=== PATIENT | female | born 1955 | race Hispanic/Latino ===

== ENCOUNTER 2018-07-24 20:39 | Observation (INO) | payer MEDICARE, OTHER ==
[2018-07-24] MEDS ORDERED: NA CHLORIDE 0.9% 1,000 ML ONE (21:05)
[2018-07-24] MEDS ORDERED: ADENOSINE 6 MG/ 2ML VIAL IV ONE (21:05)
[2018-07-24 21:21] LABS: Protime INR 0.95
[2018-07-24 21:33] LABS: ALT/SGPT 23 U/L (12-78); AST/SGOT 23 U/L (15-37); Albumin 3.9 g/dL (3.4-5.0); Alkaline Phosphatase 106 U/L (45-117); BUN Blood Urea Nitrogen 26 mg/dL (7-18); Bicarbonate 25 mmol/L (21-32); Bilirubin Direct 0.1 mg/dL (0-0.2); Bilirubin Total 0.4 mg/dL (0.2-1.0); Glucose Level 134 mg/dL (74-106); Magnesium 1.9 mg/dL (1.8-2.4); NT PRO-BNP 31 pg/mL (<125); Potassium 3.9 mmol/L (3.5-5.1); Protein, Total 8.2 g/dL (6.4-8.2); Sodium Level 138 mmol/L (136-145); Troponin (Emerg Dept Use Only) < 0.02 ng/mL (0.0-0.045)
[2018-07-24 21:38] LABS: Absolute Lymphocytes (CBC) 2.9 K/uL (0.7-4.9); Absolute Monocytes 0.6 K/uL (0.1-1.3); Absolute Neutrophil 5.6 K/uL (1.8-8.0); Basophils % 0.3 % (0-1.3); Eosinophils % 2.8 % (0-4.4); Hematocrit 33.9 % (36.0-45.0); Lymphocytes % 30.6 % (15.3-44.8); MPV 9.4 fL (7.6-11.3); Monocytes % 6.8 % (3.3-12.3); RBC Red Blood Cell Count 4.56 M/uL (3.86-4.86)
[2018-07-24] MEDS ORDERED: MORPHINE 4 MG/ML SYR IV PRN (22:22)
[2018-07-24] MEDS ORDERED: ACETAMINOPHEN 500 MG TAB PO PRN (22:22)
[2018-07-24] MEDS ORDERED: ALPRAZOLAM 0.25 MG TABLET PO PRN (22:22)
--- NOTE | 2018-07-24 22:27 | ER ---
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 she said it felt like a burning feeling. this started about 30 min before we got here.". 20:40 Transition of care: patient was not received from another setting of care. Onset of jd3 symptoms was July 24, 2018. Risk Assessment: Do you want to hurt yourself or someone else? Patient reports no desire to harm self or others. Initial Sepsis Screen: Does the patient meet any 2 criteria? No. Patient's initial sepsis screen is negative. Does the patient have a suspected source of infection? No. Patient's initial sepsis screen is negative. Care prior to arrival: None. 20:40 Method Of Arrival: Wheelchair jd3 20:40 Acuity: CHAD 1 jd3 Historical: - Allergies: 20:40 No Known Allergies; jd3 - Home Meds: 20:40 atorvastatin 20 mg oral tab [Active]; lisinopril-hydrochlorothiazide 20-12.5 mg oral jd3 tab [Active]; - PMHx: 20:40 gastric ulcers; jd3 - PSHx: 20:40 Hernia repair; jd3 - Immunization history:: Adult Immunizations up to date. - Social history:: Smoking status: Patient/guardian denies using tobacco. - Ebola Screening: : Patient negative for fever greater than or equal to 101.5 degrees Fahrenheit, and additional compatible Ebola Virus Disease symptoms. Screenin:36 Abuse screen: Denies threats or abuse. Nutritional screening: No deficits noted. jd3 Tuberculosis screening: No symptoms or risk factors identified. Fall Risk IV access (20 points). Ambulatory Aid- None/Bed Rest/Nurse Assist (0 pts). Gait- Weak (10 pts.). Mental Status- Oriented to own ability (0 pts). Total Taveras Fall Scale indicates Low Risk Score (25-44 pts). Fall prevention measures have been instituted. Side Rails Up X 2 Placed close to Nursing Station Frequent Obs/Assesments occuring Family Present and informed to notify staff if they need to leave bedside. Assessment: 20:40 General: Appears distressed, uncomfortable, Behavior is cooperative. cc3 20:40 Pain: Complains of pain in chest. Neuro: Level of Consciousness is awake, alert, obeys cc3 commands, Oriented to person, place, time, situation, Appropriate for age. Cardiovascular: Reports chest pain, Patient's skin is warm and dry. Rhythm is SVT. Respiratory: Airway is patent Respiratory effort is even, unlabored, Respiratory pattern is regular, symmetrical, Breath sounds are clear bilaterally. GI: Abdomen is round non-distended. : No signs and/or symptoms were reported regarding the genitourinary system. EENT: No signs and/or symptoms were reported regarding the EENT system. Derm: No signs and/or symptoms reported regarding the dermatologic system. Musculoskeletal: Circulation, motion, and sensation intact. Range of motion: intact in all extremities. 21:30 Reassessment: Patient appears in no apparent distress at this time. Patient and/or cc3 family updated on plan of care and expected duration. Pain level reassessed. Patient is alert, oriented x 3, equal unlabored respirations, skin warm/dry/pink. 22:15 Reassessment: Patient appears in no apparent distress at this time. Patient and/or cc3 family updated on plan of care and expected duration. Pain level reassessed. Patient is alert, oriented x 3, equal unlabored respirations, skin warm/dry/pink. 23:04 Reassessment: Patient appears in no apparent distress at this time. Patient and/or jd3 family updated on plan of care and expected duration. Pain level reassessed. Patient is alert, oriented x 3, equal unlabored respirations, skin warm/dry/pink. Patient states feeling better. 07/25 00:00 Reassessment: Patient appears in no apparent distress at this time. Patient and/or cc3 family updated on plan of care and expected duration. Pain level reassessed. Patient is alert, oriented x 3, equal unlabored respirations, skin warm/dry/pink. Patient left ER for admission vitally stable by stretcher escorted by field technical specialiststephen Estrada and the patient's family. Vital Signs: 07/24 20:42 BP 125 / 39; Pulse 194; Resp 25 S; Temp 98(O); Pulse Ox 100% on R/A; Weight 96.16 kg; jd3 Height 5 ft. 4 in. (162.56 cm) (R); Pain 10/10; 20:53 BP 123 / 87; Pulse 190; Resp 24 S; Pulse Ox 100% on Non-rebreather mask; jd3 20:57 BP 140 / 69; Pulse 92; Resp 21 S; Pulse Ox 100% on Non-rebreather mask; jd3 21:32 BP 112 / 64; Pulse 89; Resp 15 S; Pulse Ox 100% on R/A; jd3 21:39 BP 109 / 59; Pulse 116; Resp 14; Pulse Ox 99% on R/A; mt 22:00 BP 101 / 71; Pulse 92; Resp 18 S; Pulse Ox 100% on R/A; cc3 22:30 BP 103 / 50; Pulse 119; Resp 18 S; Pulse Ox 100% on R/A; cc3 23:04 BP 103 / 50; Pulse 89; Resp 19 S; Pulse Ox 100% on R/A; jd3 23:30 BP 107 / 53; Pulse 82; Resp 22 S; Pulse Ox 99% on R/A; cc3 20:42 Body Mass Index 36.39 (96.16 kg, 162.56 cm) jd3 ED Course: 20:43 EKG completed in triage. Results shown to MD. jd3 20:43 Arm band placed on. jd3 20:52 Patient arrived in ED. aa1 20:53 Inserted saline lock: 20 gauge in right antecubital area, using aseptic technique. jd3 Blood collected. 21:00 Inserted saline lock: 20 gauge in left antecubital area, using aseptic technique. Blood jd3 collected. 21:01 Brittni Burgos is Primary Nurse. cc3 21:13 Brandon Luna MD is Attending Physician. gs 21:27 Triage completed. jd3 21:37 Patient has correct armband on for positive identification. Placed in gown. Bed in low jd3 position. Call light in reach. Side rails up X2. Adult w/ patient. 21:45 X-ray completed. Portable x-ray completed in exam room. Patient tolerated procedure ml well. 21:46 XRAY Chest (1 view) In Process Unspecified. EDMS 22:26 Pavithra Mae MD is Hospitalizing Provider. gs 23:37 No provider procedures requiring assistance completed. Patient admitted, IV remains in jd3 place. Administered Medications: 20:55 Drug: Adenocard 6 mg Route: IVP; Site: right antecubital; jd3 21:00 Follow up: Response: Marked relief of symptoms; Cardiac rhythm changed jd3 20:55 Drug: NS 0.9% 1000 ml Route: IV; Rate: 1 bolus; Site: right antecubital; jd3 23:08 Follow up: Response: No adverse reaction; IV Status: Completed infusion jd3 Outcome: : Decision to Hospitalize by Provider. gs 23:39 Admitted to Med/surg accompanied by tech, via stretcher, room 212, with chart, Report jd3 called to Rocio MAGANA 23:39 Condition: stable 23:39 Instructed on the need for admit, Demonstrated understanding of instructions. 07/25 00:02 Patient left the ED. cc3 Signatures: Dispatcher [employer] EDNC Isha Velasco RN RN aa1 Frida Zavaleta Moriah mt Starr, Gregory, MD MD gs Davies, Jonathon, RN RN jd3 Brittni Burgos cc3 Corrections: (The following items were deleted from the chart) 07/24 22:15 22:13 BP 101 / 71; Pulse 92bpm; Resp 18bpm; Spontaneous; Pulse Ox 100% RA; cc3 cc3
--- NOTE | 2018-07-24 22:27 | EDPHYS ---
Physician Documentation [facility] Name: Felicia James Age: 63 yrs Sex: Female : 1955 Arrival Date: 07/24/2018 Time: 20:52 Bed 2 Private MD: ED Physician Brandon Luna HPI: 07/25 03:03 This 63 yrs old Female presents to ER via Wheelchair with complaints of gs PALPITATIONS. 03:03 The patient presents with a history of heart racing. Context: The symptoms occur at gs rest. Onset: The symptoms/episode began/occurred acutely, just prior to arrival. Duration: The patient or guardian reports a single episode, that is still ongoing. Modifying factors: The symptoms are aggravated by nothing. The symptoms are alleviated by nothing. Associated signs and symptoms: Pertinent positives: lightheadedness, SOB. Severity of symptoms: At their worst the symptoms were incapacitating in the emergency department the symptoms are unchanged. The patient has not experienced similar symptoms in the past. The patient has not recently seen a physician. Historical: - Allergies: 07/24 20:40 No Known Allergies; jd3 - Home Meds: 20:40 atorvastatin 20 mg oral tab [Active]; lisinopril-hydrochlorothiazide 20-12.5 mg oral jd3 tab [Active]; - PMHx: 20:40 gastric ulcers; jd3 - PSHx: 20:40 Hernia repair; jd3 - Immunization history:: Adult Immunizations up to date. - Social history:: Smoking status: Patient/guardian denies using tobacco. - Ebola Screening: : Patient negative for fever greater than or equal to 101.5 degrees Fahrenheit, and additional compatible Ebola Virus Disease symptoms. ROS: 07/25 03:03 All other systems are negative. gs Exam: 03:03 Head/Face: Normocephalic, atraumatic. Eyes: Pupils equal round and reactive to light, gs extra-ocular motions intact. Lids and lashes normal. Conjunctiva and sclera are non-icteric and not injected. Cornea within normal limits. Periorbital areas with no swelling, redness, or edema. ENT: Nares patent. No nasal discharge, no septal abnormalities noted. Tympanic membranes are normal and external auditory canals are clear. Oropharynx with no redness, swelling, or masses, exudates, or evidence of obstruction, uvula midline. Mucous membranes moist. Neck: Trachea midline, no thyromegaly or masses palpated, and no cervical lymphadenopathy. Supple, full range of motion without nuchal rigidity, or vertebral point tenderness. No Meningismus. Chest/axilla: Normal chest wall appearance and motion. Nontender with no deformity. No lesions are appreciated. Respiratory: Lungs have equal breath sounds bilaterally, clear to auscultation and percussion. No rales, rhonchi or wheezes noted. No increased work of breathing, no retractions or nasal flaring. Abdomen/GI: Soft, non-tender, with normal bowel sounds. No distension or tympany. No guarding or rebound. No evidence of tenderness throughout. Skin: Warm, dry with normal turgor. Normal color with no rashes, no lesions, and no evidence of cellulitis. MS/ Extremity: Pulses equal, no cyanosis. Neurovascular intact. Full, normal range of motion. Neuro: Awake and alert, GCS 15, oriented to person, place, time, and situation. Cranial nerves II-XII grossly intact. Motor strength 5/5 in all extremities. Sensory grossly intact. Cerebellar exam normal. Normal gait. 03:03 Constitutional: The patient appears alert, awake, in obvious distress, severely distressed. 03:03 ECG was reviewed by the Attending Physician. Vital Signs: 07/24 20:42 BP 125 / 39; Pulse 194; Resp 25 S; Temp 98(O); Pulse Ox 100% on R/A; Weight 96.16 kg; jd3 Height 5 ft. 4 in. (162.56 cm) (R); Pain 10/10; 20:53 BP 123 / 87; Pulse 190; Resp 24 S; Pulse Ox 100% on Non-rebreather mask; jd3 20:57 BP 140 / 69; Pulse 92; Resp 21 S; Pulse Ox 100% on Non-rebreather mask; jd3 21:32 BP 112 / 64; Pulse 89; Resp 15 S; Pulse Ox 100% on R/A; jd3 21:39 BP 109 / 59; Pulse 116; Resp 14; Pulse Ox 99% on R/A; mt 22:00 BP 101 / 71; Pulse 92; Resp 18 S; Pulse Ox 100% on R/A; cc3 22:30 BP 103 / 50; Pulse 119; Resp 18 S; Pulse Ox 100% on R/A; cc3 23:04 BP 103 / 50; Pulse 89; Resp 19 S; Pulse Ox 100% on R/A; jd3 23:30 BP 107 / 53; Pulse 82; Resp 22 S; Pulse Ox 99% on R/A; cc3 20:42 Body Mass Index 36.39 (96.16 kg, 162.56 cm) jd3 MDM: 21:14 Patient medically screened. 07/25 03:03 Differential diagnosis: arrythmia, dehydration, stress disorder, cad. Data reviewed: vital signs, nurses notes, lab test result(s), cardiac enzymes, troponin i, CBC, EKG, radiologic studies. Counseling: I had a detailed discussion with the patient and/or guardian regarding: the historical points, exam findings, and any diagnostic results supporting the discharge/admit diagnosis, lab results, radiology results, the need for further work-up and treatment in the hospital. Response to treatment: the patient's symptoms have markedly improved after treatment, and as a result, I will admit patient. 07/24 21:14 Order name: Basic Metabolic Panel; Complete Time: 22:19 07/24 21:14 Order name: CBC with Diff; Complete Time: 22:19 07/24 21:14 Order name: LFT's; Complete Time: 22:19 07/24 21:14 Order name: Magnesium; Complete Time: 22:19 07/24 21:14 Order name: NT PRO-BNP; Complete Time: 22:19 07/24 21:14 Order name: PT-INR; Complete Time: 22:19 07/24 21:14 Order name: Troponin (emerg Dept Use Only); Complete Time: 22:19 07/24 21:14 Order name: XRAY Chest (1 view) 07/24 22:25 Interpretation: No acute disease except: cardiomegaly mild . 07/24 22:26 Order name: Basic Metabolic Panel [facility] 07/24 22:26 Order name: Basic Metabolic Panel [facility] 07/24 22:26 Order name: CBC with Automated Diff [facility] 07/24 22:26 Order name: CBC with Automated Diff [facility] 07/24 22:26 Order name: Lipid Profile [facility] 07/24 22:26 Order name: Lipid Profile [facility] 07/24 21:14 Order name: EKG; Complete Time: 21:15 07/24 21:14 Order name: Cardiac monitoring; Complete Time: 21:18 07/24 21:14 Order name: EKG - Nurse/Tech; Complete Time: 21:18 07/24 21:14 Order name: IV Saline Lock; Complete Time: 21:18 07/24 21:14 Order name: Labs collected and sent; Complete Time: 21:18 07/24 21:14 Order name: O2 Per Protocol; Complete Time: 21:18 07/24 21:14 Order name: O2 Sat Monitoring; Complete Time: 21:18 07/24 22:26 Order name: CONS Physician Consult [facility] 07/24 22:26 Order name: Heart Healthy [facility] 07/24 22:26 Order name: Echo with Doppler [facility] 07/24 22:26 Order name: EKG Electrocardiogram [facility] 07/24 22:26 Order name: EKG Electrocardiogram [facility] EC: Rate is 163 beats/min. Rhythm is regular. QRS interval is normal. QT interval is gs normal. T waves are Normal. Clinical impression: SVT. Interpreted by me. Administered Medications: 07/24 20:55 Drug: Adenocard 6 mg Route: IVP; Site: right antecubital; jd3 21:00 Follow up: Response: Marked relief of symptoms; Cardiac rhythm changed jd3 20:55 Drug: NS 0.9% 1000 ml Route: IV; Rate: 1 bolus; Site: right antecubital; jd3 23:08 Follow up: Response: No adverse reaction; IV Status: Completed infusion jd3 Disposition: 07/24/18 22:27 Hospitalization ordered by Pavithra Mae for Observation. Preliminary diagnosis is Supraventricular tachycardia. - Bed requested for Telemetry/MedSurg (observation). - Status is Observation. cc3 - Condition is Stable. - Problem is new. - Symptoms are resolved. UTI on Admission? No Critical care time excluding procedures: 07/25 03:03 Critical care time: Bedside Care: 10 minutes, Consultation: 10 minutes, Guardian Hospital Intervention: 10 minutes. Total time: 30 minutes Signatures: Dispatcher [employer] [facility] Uzma Ulloa RN RN mw Starr, Gregory, MD MD gs Davies, Jonathon, RN RN jd3 Brittni Burgos cc3 Corrections: (The following items were deleted from the chart) 07/24 22:56 22:27 Hospitalization Ordered by Pavithra Mae MD for Observation. Preliminary mw diagnosis is Supraventricular tachycardia. Bed requested for Telemetry/MedSurg (observation). Status is Observation. Condition is Stable. Problem is new. Symptoms are resolved. UTI on Admission? No. 07/25 00:02 07/24 22:56 07/24/2018 22:27 Hospitalization Ordered by Pavithra Mae MD for cc3 Observation. Preliminary diagnosis is Supraventricular tachycardia. Bed requested for Telemetry/MedSurg (observation). Status is Observation. Condition is Stable. Problem is new. Symptoms are resolved. UTI on Admission? No. mw
[2018-07-25 00:11] VITALS: BMI 35.9
[2018-07-25] MEDS: METOPROLOL TAR 50 MG TAB PO SCH ×3 (00:37→21:06)
[2018-07-25 05:50] LABS: RBC Red Blood Cell Count 3.97 M/uL (3.86-4.86)
[2018-07-25 05:51] LABS: Absolute Lymphocytes (CBC) 1.7 K/uL (0.7-4.9); Absolute Monocytes 0.5 K/uL (0.1-1.3); Basophils % 0.6 % (0-1.3); Eosinophils % 3.1 % (0-4.4); Hematocrit 29.3 % (36.0-45.0); Lymphocytes % 26.9 % (15.3-44.8); Monocytes % 7.9 % (3.3-12.3)
--- NOTE | 2018-07-25 06:01 | EKG ---
Test Date: 2018-07-24 Test Time: 20:55:57 Special Education Aide: BLAKE MEASUREMENT RESULTS: Intervals: Rate: 111 UT: 126 QRSD: 66 QT: 308 QTc: 418 [place]: P: 93 UT: 126 QRS: 88 T: 46 INTERPRETIVE STATEMENTS: Sinus tachycardia Borderline ECG Compared to ECG 07/10/2015 05:42:46 Sinus rhythm no longer present Electronically Signed On 07-25-18 06:00:25 CDT by Reid Thomas
--- NOTE | 2018-07-25 06:01 | EKG ---
Test Date: 2018-07-24 Test Time: 20:43:38 Golf Course Keeper: MERI MEASUREMENT RESULTS: Intervals: Rate: 193 HI: QRSD: 82 QT: 234 QTc: 419 [place]: P: HI: QRS: 69 T: -2 INTERPRETIVE STATEMENTS: Supraventricular tachycardia Nonspecific ST abnormality Abnormal ECG Compared to ECG 07/10/2015 05:42:46 ST (T wave) deviation now present Sinus rhythm no longer present Electronically Signed On 07-25-18 06:00:48 CDT by Reid Thomas
[2018-07-25 06:17] LABS: Potassium 3.7 mmol/L (3.5-5.1)
--- NOTE | 2018-07-25 08:06 | RAD REPORT ---
EXAM DESCRIPTION: Patricia Single View07/24/2018 9:46 pm CLINICAL HISTORY: Chest pain COMPARISON: 2016 FINDINGS: An opacity is present on the left side of the heart. Right lung appears clear The heart is normal size IMPRESSION: Opacity behind the left side of the heart probably representing a hiatal hernia. PA and lateral chest series recommended for confirmation
[2018-07-25] MEDS ORDERED: REGADENOSON 0.4 MG/5 ML SYR IV ONE (08:48)
--- NOTE | 2018-07-25 09:44 | P.HP ---
Certification for Inpatient Patient admitted to: Observation With expected LOS: <2 Midnights Patient will require the following post-hospital care: None Practitioner: I am a practitioner with admitting privileges, knowledge of patient current condition, hospital course, and medical plan of care. Services: Services provided to patient in accordance with Admission requirements found in Title 42 Section 412.3 of the Code of Federal Regulations Patient History Date of Service: 07/24/18 Reason for admission: SVT History of Present Illness: Patient is a 63yo who was admitted to the hospital with SVT. Patient was given Adenosine and converted to a normal sinus rhythm. Patient will be admitted to the hospital for further workup. Patient drinks 1 cup of coffee daily. She has been taking her Lopressor 25 daily. Allergies ibuprofen Allergy (Verified 07/10/15 00:20) Rash No Known Allergies Allergy (Uncoded 07/10/15 00:35) Unknown Home Medications: Atorvastatin Calcium [Lipitor] 20 mg PO BEDTIME 07/25/18 Lisinopril/Hydrochlorothiazide [Zestoretic 20-12.5 mg Tablet] 1 each PO DAILY - Past Medical/Surgical History Has patient received pneumonia vaccine in the past: Yes Diabetic: No -: Resolved SVT -: Gastric ulcer -: hernia repair - Family History Father Family History: Reviewed- Non-Contributory - Social History Smoking Status: Never smoker Alcohol use: No CD- Drugs: No Caffeine use: Yes Place of Residence: Home Review of Systems 10-point ROS is otherwise unremarkable Physical Examination - Vital Signs Temperature: 98.6 F Blood Pressure: 118/53 Pulse: 76 Respirations: 18 Pulse Ox (%): 95 - Physical Exam General: Alert, In no apparent distress, Oriented x3 HEENT: Atraumatic, PERRLA, Mucous membr. moist/pink, EOMI, Sclerae nonicteric Neck: Supple, 2+ carotid pulse no bruit, No LAD, Without JVD or thyroid abnormality Respiratory: Clear to auscultation bilaterally, Normal air movement Cardiovascular: Regular rate/rhythm, Normal S1 S2, No murmurs Gastrointestinal: Normal bowel sounds, Soft and benign, Non-distended, No tenderness Musculoskeletal: No clubbing, No swelling, No tenderness Integumentary: No rashes Neurological: Normal gait, Normal speech, Normal strength at 5/5 x4 extr, Normal tone, Sensation intact, Cranial nerves 3-12 intact, Normal affect Lymphatics: No axilla or inguinal lymphadenopathy - Studies Laboratory Data (last 24 hrs) 07/24/18 21:00: PT 11.2, INR 0.95 07/24/18 21:00: WBC 9.5, Hgb 10.6 L, Hct 33.9 L, Plt Count 305 07/24/18 21:00: Sodium 138, Potassium 3.9, BUN 26 H, Creatinine 0.80, Glucose 134 H, Magnesium 1.9, Total Bilirubin 0.4, AST 23, ALT 23, Alkaline Phosphatase 106 Assessment & Plan - Problems (Diagnosis) (1) SVT (supraventricular tachycardia) Current Visit: Yes Status: Acute - Plan Plan: 1. Increase beta-inge therapy 2. IV hydration 3. Echocardiogram 4. EKG 5. GI/DVT prophylaxis Discharge Plan: Home Plan to discharge in: 48 Hours - Advance Directives Does patient have a Living Will: No Does patient have a Durable POA for Healthcare: No - Code Status/Comfort Care Code Status Assessed: Yes Code Status: Full Code Critical Care: No Time Spent Managing PTS Care (In Minutes): 45
--- NOTE | 2018-07-25 09:55 | CON ---
Attending Physician: Pavithra Mae M.D. Chief Complaint: Chest pain. History Of Present Illness: Mrs. James has noted spells where her heart beats fast and she gets ti ght and heavy in the chest, dizzy, head spinning, lightheaded, very out of breath. She has had sever al spells. The one that brought her to the hospital yesterday was mostly resolved when she came in. Her initial EKG showed sinus tachycardia. Later, she had an EKG that shows SVT. It looks like AV n ode re-entrant SVT, not atrial fibrillation. The patient has not had heart trouble before. She has hypertension, and takes lisinopril with hydrochlorothiazide. She has dyslipidemia and takes atorvast atin. No other medications. Denies diabetes, any history of heart trouble, stroke, myocardial infar ction, or other cardiac diagnoses. She is allergic to ibuprofen. Physical Examination: Vital Signs: 5 feet 3 inches, 202 pounds, obese. General: Alert, oriented, pleasant, not in distress. Lungs: Clear. Cardiac: Normal. Abdomen: Soft. Extremities: Normal. Distal pulses normal. Impression: My impression is the patient has paroxysmal supraventricular tachycardia causing chest p ain. We should do a nuclear pharmacologic stress test, echo, and give her beta blockers to take long-term. NAY/KAMARI Voice ID: [id number] Report ID: [id number]
[2018-07-25] MEDS: ASPIRIN EC 81 MG TAB PO SCH (10:01)
[2018-07-25] MEDS: ENOXAPARIN 40 MG/0.4 ML SQ SCH (10:03)
--- NOTE | 2018-07-25 10:51 | ECHO ---
HEIGHT: 5 ft 3 in WEIGHT: 202 lb 11.2 oz DATE OF STUDY: 07/25/[address]: Pavithra Mae MD 2-DIMENSIONAL: YES M.MODE: YES DOPPLER: YES COLOR FLOW: YES TDS: YES PORTABLE: NO DEFINITY: NO BUBBLE STUDY: NO DIAGNOSIS: SUPRAVENTRICULAR TACHYCARDIA CARDIAC HISTORY: CATHERIZATION: NO SURGERY: NO PROSTHETIC VALVE: NO PACEMAKER: NO MEASUREMENTS (cm) DIASTOLIC (NORMALS) SYSTOLIC (NORMALS) IVSd 1.1 (0.6-1.2) LA Diam 3.6 (1.9-4.0) LVEF 75% LVIDd 3.5 (3.5-5.7) LVIDs 2.0 (2.0-3.5) %FS 43% LVPWd 1.2 (0.6-1.2) Ao Diam 2.7 (2.0-3.7) 2 DIMENSIONAL ASSESSMENT: RIGHT ATRIUM: NORMAL LEFT ATRIUM: NORMAL RIGHT VENTRICLE: NORMAL LEFT VENTRICLE: NORMAL TRICUSPID VALVE: NORMAL MITRAL VALVE: NORMAL PULMONIC VALVE: NORMAL AORTIC VALVE: NORMAL PERICARDIAL EFFUSION: NONE AORTIC ROOT: NORMAL LEFT VENTRICULAR WALL MOTION: NORMAL DOPPLER/COLOR FLOW: MILD TRICUSPID REGURGITATION. NORMAL RIGHT VENTRICULAR SYSTOLIC PRESSURE. COMMENTS: NORMAL 2D ECHOCARDIOGRAM. MILD TRICUSPID REGURGITATION. TECHNICALLY DIFFICULT STUDY. TECHNOLOGIST: Ashkan ROCHA
[2018-07-25 10:55] LABS: Urine Appearance CLOUDY; Urine Bilirubin NEGATIVE (NEG); Urine Blood NEGATIVE (NEG); Urine Color YELLOW; Urine Glucose NEGATIVE (NEG); Urine Protein NEGATIVE (NEG); Urine Urobilinogen 0.2 mg/dL (0.2-1.0)
[2018-07-25 11:10] LABS: Urine Microscopic Reflex ORDER UMIC
[2018-07-25 11:18] LABS: Urine RBC <5 /HPF (NONE SEEN)
[2018-07-25 11:19] LABS: Urine Bacteria <20 /HPF (<20); Urine Culture Reflex Order REFLEXED; Urine Mucus 2+ /HPF (NONE SEEN)
--- NOTE | 2018-07-25 12:59 | P.PN ---
Subjective Date of Service: 07/25/18 Chief Complaint: SVT Subjective: No C/O voiced, Tolerating diet, Ambulating, Doing well Review of Systems 10-point ROS is otherwise unremarkable Physical Examination - Vital Signs Temperature: 98.6 F Blood Pressure: 118/53 Pulse: 76 Respirations: 18 Pulse Ox (%): 95 - Physical Exam General: Alert, In no apparent distress HEENT: Atraumatic, PERRLA, EOMI Neck: Supple, JVD not distended Respiratory: Clear to auscultation bilaterally, Normal air movement Cardiovascular: Regular rate/rhythm, Normal S1 S2 Gastrointestinal: Normal bowel sounds, No tenderness Musculoskeletal: No tenderness Integumentary: No rashes Neurological: Normal speech, Normal tone, Normal affect Lymphatics: No axilla or inguinal lymphadenopathy - Studies Laboratory Data (last 24 hrs) 07/24/18 21:00: PT 11.2, INR 0.95 07/24/18 21:00: WBC 9.5, Hgb 10.6 L, Hct 33.9 L, Plt Count 305 07/24/18 21:00: Sodium 138, Potassium 3.9, BUN 26 H, Creatinine 0.80, Glucose 134 H, Magnesium 1.9, Total Bilirubin 0.4, AST 23, ALT 23, Alkaline Phosphatase 106 Medications List Reviewed: Yes Assessment And Plan - Current Problems (Diagnosis) (1) SVT (supraventricular tachycardia) Current Visit: Yes Status: Acute Plan: SVT most likely 2.2 to uncontrolled HTN and Blood sugar -Cards Consulted. Appreciated Reccs -ECHO and pharm stress test -Start on BB for rate control -Will monitor closely and f.u with lab (2) Hyperlipidemia Current Visit: Yes Status: Chronic Plan: Elevated Cholesterol -Started on Statin Qualifiers: Hyperlipidemia type: unspecified Qualified Code(s): E78.5 - Hyperlipidemia , unspecified (3) HTN (hypertension) Current Visit: Yes Status: Acute Qualifiers: Hypertension type: essential hypertension Qualified Code(s): I10 - Essential (primary) hypertension Discharge Plan: Home Plan to discharge in: Greater than 2 days - Code Status/Comfort Care Code Status Assessed: Yes Critical Care: No
--- NOTE | 2018-07-25 14:27 | RAD REPORT ---
EXAM DESCRIPTION: NM - Rest Stress Cardiac Imaging - 07/25/2018 2:06 pm CLINICAL HISTORY: Chest pain. COMPARISON: None. TECHNIQUE: The patient was administered approximately 10mCi of Tc 99m Sestamibi prior to resting SPE CT imaging of the heart. The patient was then administered approximately 30 mCi of Tc 99m Sestamibi f ollowing exercise or pharmacologic stress. Multiplanar SPECT images were reviewed. FINDINGS: There is uniformity of radiotracer uptake involving the entire left ventricular myocardiu m on rest and stress images. The left ventricular ejection fraction equals 72% IMPRESSION: Negative for a myocardial perfusion defect
--- NOTE | 2018-07-25 16:24 | TREADPHA ---
DX: CHEST PAIN Date of Study: 07/25/18 Ht: 5 3 Wt: 202 lb 11.2 oz Consulting Physician: HOLLIE MEDICATIONS: TYLENOL, XANAX, LOVENOX, LOPRESSOR, ASPIRIN. HISTORY: 63 YEAR FEMALE WITH COMPLAINTS OF CHEST PAIN. HISTORY: GASTRIC ULCERS. PHYSICIAL EXAMINATION: RESTING B.P.: 114/46 RESTING H.R.: 69 RESTING EKG: NORMAL PROTOCOL: LEXISCAN EXERCISE TIME: 3:30 B.P. AT PEAK STRESS: 127/68 IMPRESSION: LEXISCAN INJECTED, CARDIOLITE INJECTED PER PROTOCOL. SEE NUCLEAR MEDICINE REPORT. NO SUPRAVENTRICULAR TACHYCARDIA, VENTRICULAR TACHYCARDIA, OR PREMATURE VENTRICULAR COMPLEXS. DENIED CHEST PAIN. NON-DIAGNOSTIC ELECTROCARDIOGRAM WITH LEXISCAN STRESS.
[2018-07-25] MEDS ORDERED: ATORVASTATIN 20 MG TAB PO SCH (21:00)
--- NOTE | 2018-07-26 06:17 | EKG ---
Test Date: 2018-07-25 Test Time: 08:29:26 Preschool Assistant Teacher: MARIA C MEASUREMENT RESULTS: Intervals: Rate: 75 WV: 146 QRSD: 76 QT: 406 QTc: 453 [place]: P: 72 WV: 146 QRS: 78 T: 66 INTERPRETIVE STATEMENTS: Normal sinus rhythm Low voltage QRS Borderline ECG Compared to ECG 07/24/2018 20:55:57 Low QRS voltage now present Sinus tachycardia no longer present Electronically Signed On 07-26-18 06:16:31 CDT by Reid Thomas
[2018-07-26] MEDS ORDERED: [UNRECOGNIZED DRUG - OTHER] PO SCH (09:00)
[2018-07-26] MEDS ORDERED: LISINOPRIL 20 MG TAB PO SCH (09:00)
[2018-07-26] MEDS ORDERED: LISINOPRIL PO SCH (09:00)
[2018-07-26] MEDS ORDERED: HYDROCHLOROTHIAZIDE PO SCH (09:00)
[2018-07-26] MEDS ORDERED: hydroCHLOROthiazide 12.5 MG CAP PO SCH (09:00)
[2018-07-26] MEDS: METOPROLOL TAR 50 MG TAB PO SCH (09:59)
[2018-07-26] MEDS: ASPIRIN EC 81 MG TAB PO SCH (09:59)
[2018-07-26] MEDS: ENOXAPARIN 40 MG/0.4 ML SQ SCH (09:59)
[2018-07-26 11:55] VITALS: O2SAT 97
[2018-07-26 12:39] VITALS: BP 126/59; TEMP 97.4
--- NOTE | 2018-07-26 13:40 | P.SSS ---
Patient History Date of Service: 07/26/18 Reason for admission: SVT History of Present Illness: Patient is a 63yo who was admitted to the hospital with SVT. Patient was given Adenosine and converted to a normal sinus rhythm. Patient will be admitted to the hospital for further workup. Patient drinks 1 cup of coffee daily. She has been taking her Lopressor 25 daily. Allergies ibuprofen Allergy (Verified 07/10/15 00:20) Rash No Known Allergies Allergy (Uncoded 07/10/15 00:35) Unknown Home Medications: Atorvastatin Calcium [Lipitor*] 20 mg PO BEDTIME 07/25/18 Lisinopril/Hydrochlorothiazide [Zestoretic 20-12.5 mg Tablet] 1 each PO DAILY Metoprolol Tartrate [Lopressor*] 50 mg PO BID #60 tab 07/26/18 - Past Medical/Surgical History Has patient received pneumonia vaccine in the past: Yes Diabetic: No -: Resolved SVT -: Gastric ulcer -: hernia repair - Social History Smoking Status: Never smoker Alcohol use: No CD- Drugs: No Caffeine use: Yes Place of Residence: Home Review of Systems 10-point ROS is otherwise unremarkable Physical Examination - Vital Signs Temperature: 97.4 F Blood Pressure: 126/59 Pulse: 59 Respirations: 16 Pulse Ox (%): 96 - Physical Exam General: Alert, In no apparent distress HEENT: Atraumatic, PERRLA, Mucous membr. moist/pink, EOMI, Sclerae nonicteric Neck: Supple, 2+ carotid pulse no bruit, No LAD, Without JVD or thyroid abnormality Respiratory: Clear to auscultation bilaterally, Normal air movement Cardiovascular: Regular rate/rhythm, Normal S1 S2 Gastrointestinal: Normal bowel sounds, No tenderness Musculoskeletal: No tenderness Integumentary: No rashes Neurological: Normal gait, Normal speech, Normal strength at 5/5 x4 extr, Normal tone, Normal affect Lymphatics: No axilla or inguinal lymphadenopathy - Diagnosis (Problem(s)) (1) SVT (supraventricular tachycardia) Current Visit: Yes Status: Acute Plan: SVT most likely 2.2 to increase caffiene use. S/P adenosis in ER -Cards Consulted. Appreciated Reccs -ECHO and pharm stress test WNL -Increased BB for better rate control -DC home today (2) Hyperlipidemia Current Visit: Yes Status: Chronic Plan: Elevated Cholesterol -DC on Statin Qualifiers: Hyperlipidemia type: unspecified Qualified Code(s): E78.5 - Hyperlipidemia , unspecified (3) HTN (hypertension) Current Visit: Yes Status: Chronic Qualifiers: Hypertension type: essential hypertension Qualified Code(s): I10 - Essential (primary) hypertension - Disposition Disposition: ROUTINE DISCHARGE Condition: GOOD Patient Discharge Instructions: Please f.u with Cardiology and PCP in 1 to 2 week post discharge. New medication. Metoprolol 50mg BID Diet: Regular Activity: Ad nona
== END 2018-07-26 14:20 | disposition home or self-care (01) ==
LOC: ER 20:39 → ERHOLD 22:23 → 2ND 23:44
PROVIDERS: ADMIT Hospitalist; ATTEND Hospitalist
DX: I47.1 Supraventricular tachycardia (principal); E78.5 Hyperlipidemia, unspecified; I10 Essential (primary) hypertension; E66.9 Obesity, unspecified; Z68.35 Body mass index [BMI] 35.0-35.9, adult
CPT/HCPCS: 96361; 93005 ×3; 93017; 93306; 87088; 85025 ×2; 87086; 80048 ×2; 36415; 83735; 85610; 80061; 80076; 84484; 83880; 71045; 78452; 96374; 99291; 99292; J0153; J1650 ×2; J2785; J7030; A9500; G0378 ×2; 81003; 81015

== ENCOUNTER 2021-01-27 12:36 | Observation (INO) | payer MEDICARE ==
[2021-01-27 13:20] LABS: Absolute Lymphocytes (CBC) 1.6 K/uL (0.7-4.9); Basophils % 0.5 % (0-1.3); Hematocrit 42.8 % (36.0-45.0); Lymphocytes % 26.4 % (15.3-44.8); MPV 9.1 fL (7.6-11.3); RBC Red Blood Cell Count 4.94 M/uL (3.86-4.86)
--- NOTE | 2021-01-27 13:26 | RAD REPORT ---
EXAM DESCRIPTION: Patricia Single View01/27/2021 1:13 pm CLINICAL HISTORY: Chest pain COMPARISON: 2018 FINDINGS: The lungs appear clear of acute infiltrate. The heart is normal size IMPRESSION: No acute abnormalities displayed
[2021-01-27 13:27] LABS: Protime INR 1.01
[2021-01-27] MEDS ORDERED: NA CHLORIDE 0.9% 500 ML ONE (13:31)
[2021-01-27] MEDS ORDERED: METOPROLOL TARTRATE 5 MG/5 ML INJ IV ONE ×2 (13:31→14:25)
[2021-01-27 13:43] LABS: BUN Blood Urea Nitrogen 14 mg/dL (7-18); Bicarbonate 27 mmol/L (21-32); Glucose Level 132 mg/dL (74-106); NT PRO-BNP 169 pg/mL (<125); Potassium 4.2 mmol/L (3.5-5.1); Sodium Level 142 mmol/L (136-145); Troponin (Emerg Dept Use Only) < 0.02 ng/mL (0.0-0.045)
--- NOTE | 2021-01-27 14:00 | EDPHYS ---
Physician Documentation [facility] Name: Felicia James Age: 65 yrs Sex: Female : 1955 Arrival Date: 01/27/2021 Time: 12:37 Bed 30 Private MD: ED Physician Derrick Bernstein HPI: 01/27 13:52 This 65 yrs old Female presents to ER via Ambulatory with complaints of Chest rn Pain, Palpitations. 13:52 The patient or guardian reports chest pain that is located primarily in the substernal rn area. Onset: this morning. The pain radiates to the right arm. Associated signs and symptoms: Pertinent positives: diaphoresis, palpitations, Pertinent negatives: abdominal pain, syncope, vomiting. The chest pain is described as a heaviness. Duration: The patient or guardian reports multiple episodes, that are intermittent. Modifying factors: The symptoms are alleviated by nothing. the symptoms are aggravated by nothing. Severity of pain: At its worst the pain was mild in the emergency department the pain is unchanged. The patient has not experienced similar symptoms in the past. The patient has not recently seen a physician. Patient reports since this morning has had 3 separate episodes of chest pain and palpitations, reports sweating and feeling lightheaded. Heart rate feels very fast. No syncope.. Historical: - Allergies: 13:16 Naproxen; ss - Home Meds: 13:03 atorvastatin 20 mg Oral tab [Active]; lisinopril-hydrochlorothiazide 20-12.5 mg Oral vg1 tab [Active]; - Immunization history:: Adult Immunizations up to date, Client reports receiving the 2nd dose of the Covid vaccine. - Social history:: Smoking status: Patient denies any tobacco usage or history of. - Family history:: not pertinent. - Hospitalizations: : No recent hospitalization is reported. ROS: 13:52 Constitutional: Negative for fever, chills, and weight loss, Eyes: Negative for injury, rn pain, redness, and discharge, ENT: Negative for injury, pain, and discharge, Neck: Negative for injury, pain, and swelling, Cardiovascular: Negative for edema Respiratory: Negative for shortness of breath, cough, wheezing, and pleuritic chest pain, Abdomen/GI: Negative for abdominal pain, nausea, vomiting, diarrhea, and constipation, Back: Negative for injury and pain, : Negative for injury, bleeding, discharge, and swelling, MS/Extremity: Negative for injury and deformity, Skin: Negative for injury, rash, and discoloration, Neuro: Negative for headache, weakness, numbness, tingling, and seizure. 13:52 All other systems are negative. rn Exam: 13:52 Constitutional: This is a well developed, well nourished patient who is awake, alert, rn appears anxious and tearful Head/Face: Normocephalic, atraumatic. Eyes: Periorbital areas with no swelling, redness, or edema. ENT: Moist mucous membranes Cardiovascular: Tachycardic, irregular. No pulse deficits. Respiratory: No increased work of breathing, no retractions or nasal flaring. Abdomen/GI: Soft, non-tender Skin: Warm, dry with normal turgor. Normal color with no rashes, no lesions, and no evidence of cellulitis. MS/ Extremity: Pulses equal, no cyanosis. Neurovascular intact. Full, normal range of motion. Equal circumference. Neuro: Awake and alert, GCS 15, oriented to person, place, time, and situation. Cranial nerves II-XII grossly intact. Motor strength 5/5 in all extremities. Sensory grossly intact. 13:52 ECG was reviewed by the Attending Physician. rn Vital Signs: 12:44 BP 139 / 97; Pulse 167; Resp 16; Temp 97.1; Pulse Ox 100% ; Weight 95.25 kg; Height 5 vg1 ft. 3 in. (160.02 cm); Pain 8/10; 13:12 Pulse 127; ss 13:15 BP 142 / 98; ss 13:52 BP 128 / 82; Pulse 118; Resp 18; Pulse Ox 97% on R/A; ap3 12:44 Body Mass Index 37.20 (95.25 kg, 160.02 cm) vg1 MDM: 12:56 Patient medically screened. rn 13:52 Differential diagnosis: abnormal EKG, acute myocardial infarction, acute pericarditis, rn anxiety, coronary artery disease pleurisy, pneumothorax, stable angina, unstable angina, Atrial fibrillation. HEART Score: History: Slightly Suspicious (0), ECG: Normal (0), Age: > or = 65 years (2), Risk Factors: 1 or 2 risk factors (1), Troponin: < or = 1 x Normal Limit (0), Total Score = 2. Data reviewed: vital signs, nurses notes, lab test result(s), EKG, radiologic studies, plain films, and as a result, I will admit patient. 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 Interpretation: normal. Test interpretation: by ED physician or midlevel provider: ECG, plain radiologic studies, Chest x-ray negative for acute abnormality. Counseling: I had a detailed discussion with the patient and/or guardian regarding: the historical points, exam findings, and any diagnostic results supporting the discharge/admit diagnosis, lab results, radiology results, the need for further work-up and treatment in the hospital. Response to treatment: the patient's symptoms have mildly improved after treatment, and as a result, I will admit patient. Admission orders: after a detailed discussion of the patient's condition and case, the admit orders are written by me. ED course: Patient with atrial fibrillation and RVR, will admit to Dr. Barrera for further heart rate control and evaluation of chest pain which may be just secondary to demand ischemia. Heart rate down from 158-120s currently.. 01/27 12:56 Order name: Basic Metabolic Panel; Complete Time: 13:50 01/27 12:56 Order name: CBC with Diff; Complete Time: 13:50 01/27 12:56 Order name: Magnesium; Complete Time: 13:50 01/27 12:56 Order name: NT PRO-BNP; Complete Time: 13:50 01/27 12:56 Order name: PT-INR; Complete Time: 13:50 01/27 12:56 Order name: Troponin (emerg Dept Use Only); Complete Time: 13:50 01/27 15:13 Order name: Liver (Hepatic) Function [facility] 01/27 15:40 Order name: COVID-19 : Document "Date of Symptom Onset" if Symptomatic. sv 01/27 16:21 Order name: CORONAVIRUS [facility] 01/27 17:26 Order name: SARS-COV-2 RT PCR [facility] 01/27 18:50 Order name: Creatine Phosphokinase [facility] 01/27 18:50 Order name: CKMB Creatine Kinase MB [facility] 01/27 18:50 Order name: Troponin I [facility] 01/28 00:13 Order name: Creatine Phosphokinase [facility] 01/27 12:56 Order name: XRAY Chest (1 view); Complete Time: 13:50 rn 01/27 12:56 Order name: EKG; Complete Time: 12:57 rn 01/27 12:56 Order name: Cardiac monitoring; Complete Time: 13:02 rn 01/27 12:56 Order name: EKG - Nurse/Tech; Complete Time: 13:02 rn 01/27 12:56 Order name: IV Saline Lock; Complete Time: 13:06 rn 01/27 12:56 Order name: Labs collected and sent; Complete Time: 13:06 rn 01/27 12:56 Order name: O2 Per Protocol; Complete Time: 13:03 rn 01/28 00:13 Order name: CKMB Creatine Kinase MB [facility] 01/28 03:53 Order name: CBC with Automated Diff [facility] 01/28 04:15 Order name: Comprehensive Metabolic Panel [facility] 01/28 04:15 Order name: T4 Free [facility] 01/28 04:15 Order name: Magnesium [facility] 01/28 04:15 Order name: Thyroid Stimulating Hormone [facility] 01/27 12:56 Order name: O2 Sat Monitoring; Complete Time: 13:03 rn EC:52 Rate is 158 beats/min. Rhythm is irregularly irregular. QRS [place] is Normal. AL interval rn is normal. QRS interval is normal. QT interval is normal. No Q waves. T waves are Normal. No ST changes noted. Clinical impression: Atrial Fibrillation. Interpreted by me. Reviewed by me. Administered Medications: 13:11 Drug: Metoprolol 5 mg Route: IVP; Site: right antecubital; ss 13:11 Drug: NS 0.9% 500 ml Route: IV; Rate: bolus; Site: right antecubital; ss 13:41 Drug: Metoprolol 25 mg Route: PO; ss 14:06 Drug: Metoprolol 5 mg Route: IVP; Site: right antecubital; ap3 Disposition: 13:52 Critical Care:. rn Disposition Summary: 01/27/21 13:59 Hospitalization Ordered Hospitalization Status: Inpatient Admission rn Provider: Khadar Green rn Condition: Stable rn Problem: new rn Symptoms: have improved rn Bed/Room Type: Standard rn Location: [facility] ER HOLD(01/27/21 15:44) sv Room Assignment: [facility]-(01/27/21 15:44) sv Diagnosis - Paroxysmal atrial fibrillation rn - Chest pain, unspecified rn Forms: - Medication Reconciliation Form rn - SBAR form customer marketing intern time excluding procedures: 13:52 Critical care time: Bedside Care: 30 minutes, Consultation: 5 minutes. Total time: 35 rn minutes Signatures: Dispatcher [employer] Ca Levine RN RN Derrick Demarco MD MD rn Smirch, Shelby, RN RN ss Prokisch, Amanda RN RN andry3 Sasha Pacheco RN RN vg1 Corrections: (The following items were deleted from the chart) 15: 13:59 Telemetry/MedSurg (Inpatient) rn chauncey 15:44 13:59 rn chauncey
--- NOTE | 2021-01-27 14:00 | ER ---
Nurse's Notes [facility] Name: Felicia James Age: 65 yrs Sex: Female : 1955 Arrival Date: 01/27/2021 Time: 12:37 Bed 30 Private MD: Diagnosis: Paroxysmal atrial fibrillation;Chest pain, unspecified Presentation: 01/27 12:44 Chief complaint: Patient states: At about 0600 this morning pt started feel vg1 palpitations and chest pain that radiates to Left Arm. Denies cough and shortness of breath. States has nausea and h/a. Coronavirus screen: Vaccine status: Patient reports receiving the 2nd dose of the covid vaccine. Ebola Screen: Patient negative for fever greater than or equal to 101.5 degrees Fahrenheit, and additional compatible Ebola Virus Disease symptoms. Initial Sepsis Screen: Does the patient meet any 2 criteria? No. Patient's initial sepsis screen is negative. Does the patient have a suspected source of infection? No. Patient's initial sepsis screen is negative. Risk Assessment: Do you want to hurt yourself or someone else? Patient reports no desire to harm self or others. Onset of symptoms was January 27, 2021. 12:44 Method Of Arrival: Ambulatory vg1 12:44 Acuity: CHAD 3 vg1 Triage Assessment: 13:03 General: Appears in no apparent distress. uncomfortable, Behavior is cooperative, vg1 anxious. Pain: Complains of pain in chest and left arm. Cardiovascular: Chest pain is located in left radiates to left arm(s) began this morning about 0600. Historical: - Allergies: 13:16 Naproxen; ss - Home Meds: 13:03 atorvastatin 20 mg Oral tab [Active]; lisinopril-hydrochlorothiazide 20-12.5 mg Oral vg1 tab [Active]; - Immunization history:: Adult Immunizations up to date, Client reports receiving the 2nd dose of the Covid vaccine. - Social history:: Smoking status: Patient denies any tobacco usage or history of. - Family history:: not pertinent. - Hospitalizations: : No recent hospitalization is reported. Vital Signs: 12:44 BP 139 / 97; Pulse 167; Resp 16; Temp 97.1; Pulse Ox 100% ; Weight 95.25 kg; Height 5 vg1 ft. 3 in. (160.02 cm); Pain 8/10; 13:12 Pulse 127; ss 13:15 BP 142 / 98; ss 13:52 BP 128 / 82; Pulse 118; Resp 18; Pulse Ox 97% on R/A; ap3 12:44 Body Mass Index 37.20 (95.25 kg, 160.02 cm) vg1 ED Course: 12:37 Patient arrived in ED. rg4 12:47 Triage completed. vg1 12:56 Derrick Bernstein MD is Attending Physician. rn 13:03 Arm band placed on. EKG completed in triage. Results shown to MD. vg1 13:14 XRAY Chest (1 view) In Process Unspecified. EDMS 13:18 Janet Thomas is Primary Nurse. kh1 13:58 Khadar Green DO is Hospitalizing Provider. rn Administered Medications: 13:11 Drug: Metoprolol 5 mg Route: IVP; Site: right antecubital; ss 13:11 Drug: NS 0.9% 500 ml Route: IV; Rate: bolus; Site: right antecubital; ss 13:41 Drug: Metoprolol 25 mg Route: PO; ss 14:06 Drug: Metoprolol 5 mg Route: IVP; Site: right antecubital; ap3 Outcome: 13:59 Decision to Hospitalize by Provider. rn 01/28 14:43 Patient left the ED. iw Signatures: Dispatcher [employer] EDMS Zonia Riley, RN RN iw Derrick Bernstein MD MD rn Smirch, Shelby, RN RN ss Garcia, Rubi rg4 Lakeisha Martinez RN RN ap3 Sasha Pacheco RN RN vg1 Janet Thomas [facility] Corrections: (The following items were deleted from the chart) 01/27 13:03 12:44 BP 139 / 97; Pulse 80bpm; Resp 16bpm; Pulse Ox 100%; Temp 97.1F; 95.25 kg; Height vg1 5 ft. 3 in.; BMI: 37.2; Pain 8/10; vg1
[2021-01-27] MEDS ORDERED: METOPROLOL TAR 25 MG TAB ONE (14:02)
[2021-01-27] MEDS: SOTALOL HCL 80 MG TAB PO SCH ×2 (14:24→18:00)
[2021-01-27] MEDS ORDERED: ACETAMINOPHEN 500 MG TAB PO PRN (14:35)
[2021-01-27] MEDS ORDERED: ONDANSETRON 4 MG/2 ML VIAL IV PRN (14:35)
[2021-01-27] MEDS: ENOXAPARIN 100 MG/ML SYR SQ SCH (15:00)
[2021-01-27 15:13] LABS: Albumin 3.6 g/dL (3.4-5.0); Bilirubin Direct 0.1 mg/dL (0-0.2); Bilirubin Total 0.6 mg/dL (0.2-1.0); Protein, Total 7.7 g/dL (6.4-8.2)
--- NOTE | 2021-01-27 15:23 | CON ---
Date of Consultation: 01/27/2021 Reason For Consultation: Chest pain. History Of Present Illness: A 65-year-old female with history of hypertension and dyslipidemia, pres ented with chest pain, pressure-like, had multiple episodes along with some shortness of breath, not necessarily related to exertion. She is chest-pain free at the present time. In the ER, found to be in atrial fibrillation with rapid ventricular response. Denies having any nausea, vomiting, or diap horesis. Past Medical History: Hypertension, dyslipidemia. Medications: Refer to reconciliation sheet for detailed list. Allergies: IBUPROFEN. Family History: No premature coronary artery disease or cancer. Social History: Does not smoke or drink. Does not use any drugs. Review of Systems: All systems reviewed and negative except what mentioned in the HPI. Physical Examination: Vital Signs: Reviewed. Head and Neck: Pupils are equal, reactive to light. Intact eye movements. No JVD. No cervical lym phadenopathy. Neck: Supple. Thyroid is not enlarged. Head and Neck: Pupils are equal, reactive to light. Intact eye movements. No JVD. No cervical lym phadenopathy. Neck: Supple. Thyroid is not enlarged. Lungs: Clear to auscultation bilaterally. No rhonchi, rales, or crackles. No accessory muscle use. Heart: Irregularly irregular. No extra sounds. Abdomen: Soft, nontender. Bowel sounds positive. No organomegaly. No masses or hernia. No rigidi ty or rebound. Extremities: No edema, clubbing, or cyanosis. Intact pulses. Skin: No rash noted. Neurologic: Alert, awake, oriented x3. No acute focal deficits appreciated. Investigations: First troponin was less than 0.02. NT-proBNP is 169. Creatinine is 0.49 and hemogl obin 14.2, platelet count is 237. Assessment And Recommendations: 1.Chest pain. Negative troponin. EKG did not show any acute specific abnormalities. Start baby as pirin 81 mg daily and control the atrial fibrillation rate. Obtain echocardiogram and do serial sets of cardiac enzymes please. 2.Atrial fibrillation with rapid ventricular response. Use metoprolol 5 mg IV q.1 hour as needed fo r rate control and start the patient on sotalol 80 mg by mouth twice a day first now and monitor EKG daily while on it, and please obtain an echocardiogram. Thank you for the consult. /MODL Voice ID: [id number] Report ID: [id number]
--- NOTE | 2021-01-27 15:24 | P.HP ---
Certification for Inpatient Patient admitted to: Observation With expected LOS: <2 Midnights Patient will require the following post-hospital care: None Practitioner: I am a practitioner with admitting privileges, knowledge of patient current condition, hospital course, and medical plan of care. Services: Services provided to patient in accordance with Admission requirements found in Title 42 Section 412.3 of the Code of Federal Regulations Patient History Date of Service: 01/27/21 Primary Care Provider: Sophie Rai Reason for admission: Chest pain, palpitations History of Present Illness: 65-year-old female with history of hypertension, hyperlipidemia. Patient presented to the emergency room with increasing palpitations and chest pain. Patient reported palpitations today. She had 3 episodes of palpitations. Her last episode reported with chest pain that radiated to the left arm. She was concerned for this. She denied any headaches, dizziness, or shortness of breath. Patient came to the ER for further evaluation. In the ER patient was evaluated. Patient found to have atrial fibrillation with RVR. Patient was given IV metoprolol. Patient remains atrial fibrillation with rate around 110-120. Vital signs stable. Patient admitted for further evaluation and treatment. ER physician reports history of SVT in the past. Patient has received adenosine. Patient takes metoprolol at home along with lisinopril and cholesterol medication. Allergies ibuprofen Allergy (Verified 07/10/15 00:20) Rash No Known Allergies Allergy (Uncoded 07/10/15 00:35) Unknown Home medications list reviewed: Yes Home Medications: Atorvastatin Calcium [Lipitor*] 20 mg PO BEDTIME 07/25/18 Lisinopril/Hydrochlorothiazide [Zestoretic 20-12.5 mg Tablet] 1 each PO DAILY 07/25/18 Metoprolol Tartrate [Lopressor*] 50 mg PO BID #60 tab 07/26/18 - Past Medical/Surgical History Diabetic: No -: Hypertension -: Hyperlipidemia -: History of gastric ulcer -: hernia repair Psychosocial/ Personal History: Patient lives at home. She is - Family History Family History: Reviewed- Non-Contributory - Social History Smoking Status: Never smoker Alcohol use: No CD- Drugs: No Caffeine use: Yes Place of Residence: Home Review of Systems General: As per HPI Eyes: Unremarkable ENT: Unremarkable Respiratory: Unremarkable Cardiovascular: Chest Pain, Palpitations, As per HPI Gastrointestinal: Unremarkable Genitourinary: Unremarkable Musculoskeletal: Pedal edema, As per HPI Integumentary: Unremarkable Neurological: Unremarkable Lymphatics: Unremarkable Physical Examination - Studies Laboratory Data (last 24 hrs) 01/27/21 13:05: Total Bilirubin 0.6, AST 29, ALT 36, Alkaline Phosphatase 110 01/27/21 13:05: PT 11.6, INR 1.01 01/27/21 13:05: WBC 6.10, Hgb 14.2, Hct 42.8, Plt Count 237 01/27/21 13:05: Sodium 142, Potassium 4.2, BUN 14, Creatinine 0.49 L, Glucose 132 H, Magnesium 2.0 Assessment and Plan - Plan COVID: pending CXR: COMPARISON: 2019 FINDINGS: The lungs appear clear of acute infiltrate. The heart is normal size IMPRESSION: No acute abnormalities displayed Physical Exam: GENERAL: Patient stable at this time. VITAL SIGNS: Reviewed HEENT: Head is normocephalic and atraumatic. Extraocular muscles are intact. Pupils are equal, round, and reactive to light and accommodation. Nares appeared normal. Mouth is well hydrated and without lesions. Mucous membranes are moist. NECK: Supple. No carotid bruits. No lymphadenopathy or thyromegaly. LUNGS: Clear to auscultation. No crackles or wheezes are heard. HEART: Irregular irregular with rate around 1 10-1 20 ABDOMEN: Soft, nontender, and nondistended. Positive bowel sounds. No hepatosplenomegaly was noted. EXTREMITIES: Some nonpitting edema to the lower extremity NEUROLOGIC: The patient is oriented to person, place and time. Strength and sensation are grossly intact. Face is symmetric. SKIN: Normal color, turgor and temperature. No ulcerations or rashes noted. Impression: Palpitation, chest pain secondary to atrial fibrillation with RVR Hypertension Hyperlipidemia Plan: Palpitation, chest pain secondary to atrial fibrillation with RVR: Patient admitted for further evaluation and treatment. Case discussed at length with cardiology. Cardiology recommends to start sotalol 80 mg 1 pill twice daily. We will continue with Lovenox at 1 mg/kg subcu twice daily. We will monitor the patient closely on telemetry. Monitor cardiac enzymes. Will check thyroid panel. Anticipate continued improvement. Likely discharge in the next 24 to 48 hours. Hypertension: Patient to be started on sotalol. Patient may require IAN inhibitor. Will monitor closely. Hyperlipidemia: Obtain restart home medication. Will check fasting lipid panel. Code Status: Full Code DVT prophylaxis: Lovenox Advanced Care Planning-30 minutes: Home at discharge Discharge Plan: Home Plan to discharge in: 48 Hours - Advance Directives Does patient have a Living Will: No Does patient have a Durable POA for Healthcare: No - Code Status/Comfort Care Code Status Assessed: Yes (Full code) Time Spent Managing Pts Care (In Minutes): 55
[2021-01-27] MEDS ORDERED: SOTALOL HCL 80 MG TAB ONE (17:12)
[2021-01-27] MEDS ORDERED: ENOXAPARIN 100 MG/ML SYR SQ ONE (17:13)
[2021-01-27 18:50] LABS: CKMB Creatine Kinase MB 1.3 ng/mL (1.0-3.6)
[2021-01-27] MEDS: FAMOTIDINE 20 MG TAB PO SCH (20:45)
[2021-01-27] MEDS ORDERED: ENOXAPARIN 100 MG/ML SYR SQ SCH (21:00)
[2021-01-27] MEDS ORDERED: FAMOTIDINE 20 MG TAB ONE (21:02)
[2021-01-28 00:13] LABS: CKMB Creatine Kinase MB 1.3 ng/mL (1.0-3.6)
[2021-01-28 03:50] LABS: Absolute Lymphocytes (CBC) 2.1 K/uL (0.7-4.9); Basophils % 0.7 % (0-1.3); Hematocrit 40.1 % (36.0-45.0); Lymphocytes % 35.1 % (15.3-44.8); MPV 9.2 fL (7.6-11.3); RBC Red Blood Cell Count 4.64 M/uL (3.86-4.86)
[2021-01-28 04:14] LABS: ALT/SGPT 30 U/L (12-78); AST/SGOT 21 U/L (15-37); Albumin 3.1 g/dL (3.4-5.0); Alkaline Phosphatase 93 U/L (45-117); BUN Blood Urea Nitrogen 18 mg/dL (7-18); Bicarbonate 26 mmol/L (21-32); Bilirubin Total 0.3 mg/dL (0.2-1.0); Glucose Level 108 mg/dL (74-106); Magnesium 1.9 mg/dL (1.8-2.4); Protein, Total 6.6 g/dL (6.4-8.2); Sodium Level 146 mmol/L (136-145)
[2021-01-28] MEDS: SOTALOL HCL 80 MG TAB PO SCH ×2 (06:00→14:16)
[2021-01-28] MEDS: ENOXAPARIN 100 MG/ML SYR SQ SCH (06:00)
[2021-01-28] MEDS ORDERED: SOTALOL HCL 80 MG TAB ONE ×2 (06:00→14:37)
[2021-01-28 06:01] VITALS: BMI 36.6
[2021-01-28] MEDS ORDERED: ENOXAPARIN 100 MG/ML SYR SQ ONE (06:01)
[2021-01-28 06:26] VITALS: TEMP 97
--- NOTE | 2021-01-28 06:44 | P.PN ---
Subjective Date of Service: 01/28/21 Primary Care Provider: [facility] Chief Complaint: Chest pain, palpitations Subjective: Improving, Doing well Physical Examination - Vital Signs Temperature: 97.0 F Blood Pressure: 127/87 Pulse: 101 Respirations: 17 Pulse Ox (%): 95 - Studies Laboratory Data (last 24 hrs) 01/27/21 13:05: Total Bilirubin 0.6, AST 29, ALT 36, Alkaline Phosphatase 110 01/27/21 13:05: PT 11.6, INR 1.01 01/27/21 13:05: WBC 6.10, Hgb 14.2, Hct 42.8, Plt Count 237 01/27/21 13:05: Sodium 142, Potassium 4.2, BUN 14, Creatinine 0.49 L, Glucose 132 H, Magnesium 2.0 Assessment & Plan Discharge Plan: Home Physician Review Additional Text: COVID: Positive CXR: COMPARISON: 2019 FINDINGS: The lungs appear clear of acute infiltrate. The heart is normal size IMPRESSION: No acute abnormalities displayed ECHO: MEASUREMENTS (cm) DIASTOLIC (NORMALS) SYSTOLIC (NORMALS) IVSd 1.2 (0.6-1.2) LA Diam 2.6 (1.9-4.0) LVEF 60% LVIDd 3.3 (3.5-5.7) LVIDs 2.3 (2.0-3.5) %FS 31% LVPWd 1.2 (0.6-1.2) Ao Diam 2.6 (2.0-3.7) 2 DIMENSIONAL ASSESSMENT: RIGHT ATRIUM: NORMAL LEFT ATRIUM: NORMAL RIGHT VENTRICLE: NORMAL LEFT VENTRICLE: NORMAL TRICUSPID VALVE: NORMAL MITRAL VALVE: NORMAL PULMONIC VALVE: NORMAL AORTIC VALVE: SCLEROSIS PERICARDIAL EFFUSION: NONE AORTIC ROOT: NORMAL LEFT VENTRICULAR WALL MOTION: NORMAL DOPPLER/COLOR FLOW: NORMAL COMMENTS: AORTIC SCLEROSIS WITH NO STENOSIS. NORMAL LEFT VENTRICULAR SIZE AND FUNCTION. NORMAL LEFT ATRIAL SIZE. NO THROMBUS. ATRIAL FIBRILLATION NOTED. Physical Exam: GENERAL: Patient stable at this time. VITAL SIGNS: Reviewed HEENT: Head is normocephalic and atraumatic. Extraocular muscles are intact. Pupils are equal, round, and reactive to light and accommodation. Nares appeared normal. Mouth is well hydrated and without lesions. Mucous membranes are moist. NECK: Supple. No carotid bruits. No lymphadenopathy or thyromegaly. LUNGS: Clear to auscultation. No crackles or wheezes are heard. HEART: Patient remains in atrial fibrillation with better rate control. ABDOMEN: Soft, nontender, and nondistended. Positive bowel sounds. No hepatosplenomegaly was noted. EXTREMITIES: Some nonpitting edema to the lower extremity NEUROLOGIC: The patient is oriented to person, place and time. Strength and sensation are grossly intact. Face is symmetric. SKIN: Normal color, turgor and temperature. No ulcerations or rashes noted. Impression: Palpitation, chest pain secondary to atrial fibrillation with RVR Hypertension Hyperlipidemia Positive COVID, asymptomatic Plan: Palpitation, chest pain secondary to atrial fibrillation with RVR: Patient doing well. Patient remained stable on sotalol. Spoke with cardiology. Plan for discharge after 2 PM when the patient will get her third dose of sotalol. Patient will continue with sotalol 80 mg 1 pill twice daily and Xarelto 20 mg daily at discharge. Will need to make sure patient able to get both medications at discharge. Hypertension: Patient to be started on sotalol. Overall stable with current medication. Please note metoprolol and lisinopril hydrochlorothiazide has been discontinued. Hyperlipidemia: Patient will continue with Lipitor at discharge Positive COVID, asymptomatic: Patient asymptomatic at this time. Code Status: Full Code DVT prophylaxis: Lovenox Advanced Care Planning-30 minutes: Home at discharge Time Spent Managing Pts Care (In Minutes): 55
[2021-01-28] MEDS: FAMOTIDINE 20 MG TAB PO SCH (09:00)
[2021-01-28] MEDS ORDERED: FAMOTIDINE 20 MG TAB ONE (09:47)
--- NOTE | 2021-01-28 10:42 | EKG ---
Test Date: 2021-01-27 Test Time: 13:30:35 Cashier Gambling: AP MEASUREMENT RESULTS: Intervals: Rate: 114 [place]: QRSD: 68 QT: 316 QTc: 435 [place]: P: [place]: QRS: 86 T: 41 INTERPRETIVE STATEMENTS: Atrial fibrillation with rapid ventricular response Low voltage QRS Abnormal ECG Compared to ECG 07/25/2018 08:29:26 Sinus rhythm no longer present Electronically Signed On 01-28-21 10:39:56 CDT by Derek Puri
--- NOTE | 2021-01-28 10:42 | EKG ---
Test Date: 2021-01-27 Test Time: 12:53:35 Clinical Support Specialist: ANTONELLA MEASUREMENT RESULTS: Intervals: Rate: 158 MO: 130 QRSD: 64 QT: 278 QTc: 450 [place]: P: [place]: 130 QRS: 86 T: 59 INTERPRETIVE STATEMENTS: Sinus tachycardia with premature supraventricular complexes Nonspecific ST abnormality Abnormal ECG Compared to ECG 07/25/2018 08:29:26 Atrial premature complex(es) now present ST (T wave) deviation now present Sinus rhythm no longer present Electronically Signed On 01-28-21 10:40:00 CDT by Derek Puri
--- NOTE | 2021-01-28 12:58 | ECHO ---
HEIGHT: 5 ft 3 in WEIGHT: 207 lb 0 oz DATE OF STUDY: 01/27/[address]: Khadar Green DO 2-DIMENSIONAL: YES M.MODE: YES DOPPLER: YES COLOR FLOW: YES TDS: YSE PORTABLE: NO DEFINITY: NO BUBBLE STUDY: NO DIAGNOSIS: ATRIAL FIBRILLATION CARDIAC HISTORY: CATHERIZATION: NO SURGERY: NO PROSTHETIC VALVE: NO PACEMAKER: NO MEASUREMENTS (cm) DIASTOLIC (NORMALS) SYSTOLIC (NORMALS) IVSd 1.2 (0.6-1.2) LA Diam 2.6 (1.9-4.0) LVEF 60% LVIDd 3.3 (3.5-5.7) LVIDs 2.3 (2.0-3.5) %FS 31% LVPWd 1.2 (0.6-1.2) Ao Diam 2.6 (2.0-3.7) 2 DIMENSIONAL ASSESSMENT: RIGHT ATRIUM: NORMAL LEFT ATRIUM: NORMAL RIGHT VENTRICLE: NORMAL LEFT VENTRICLE: NORMAL TRICUSPID VALVE: NORMAL MITRAL VALVE: NORMAL PULMONIC VALVE: NORMAL AORTIC VALVE: SCLEROSIS PERICARDIAL EFFUSION: NONE AORTIC ROOT: NORMAL LEFT VENTRICULAR WALL MOTION: NORMAL DOPPLER/COLOR FLOW: NORMAL COMMENTS: AORTIC SCLEROSIS WITH NO STENOSIS. NORMAL LEFT VENTRICULAR SIZE AND FUNCTION. NORMAL LEFT ATRIAL SIZE. NO THROMBUS. ATRIAL FIBRILLATION NOTED. TECHNOLOGIST: Ashkan ROCHA
[2021-01-28 13:30] VITALS: BP 127/87
--- NOTE | 2021-01-28 13:45 | P.DS ---
Admission Date: 01/27/21 Discharge Date: 01/28/21 Primary Care Provider: Sophie Rai Disposition: ROUTINE DISCHARGE Discharge Condition: GOOD Reason for Admission: Chest pain, palpitations Consultations: Cardiology-Dr. Puri Procedures: COVID: Positive CXR: COMPARISON: 2019 FINDINGS: The lungs appear clear of acute infiltrate. The heart is normal size IMPRESSION: No acute abnormalities displayed ECHO: MEASUREMENTS (cm) DIASTOLIC (NORMALS) SYSTOLIC (NORMALS) IVSd 1.2 (0.6-1.2) LA Diam 2.6 (1.9-4.0) LVEF 60% LVIDd 3.3 (3.5-5.7) LVIDs 2.3 (2.0-3.5) %FS 31% LVPWd 1.2 (0.6-1.2) Ao Diam 2.6 (2.0-3.7) 2 DIMENSIONAL ASSESSMENT: RIGHT ATRIUM: NORMAL LEFT ATRIUM: NORMAL RIGHT VENTRICLE: NORMAL LEFT VENTRICLE: NORMAL TRICUSPID VALVE: NORMAL MITRAL VALVE: NORMAL PULMONIC VALVE: NORMAL AORTIC VALVE: SCLEROSIS PERICARDIAL EFFUSION: NONE AORTIC ROOT: NORMAL LEFT VENTRICULAR WALL MOTION: NORMAL DOPPLER/COLOR FLOW: NORMAL COMMENTS: AORTIC SCLEROSIS WITH NO STENOSIS. NORMAL LEFT VENTRICULAR SIZE AND FUNCTION. NORMAL LEFT ATRIAL SIZE. NO THROMBUS. ATRIAL FIBRILLATION NOTED. Medical Problem List: Palpitation, chest pain secondary to atrial fibrillation with RVR Hypertension Hyperlipidemia Positive COVID, asymptomatic Brief History of Present Illness: 65-year-old female with history of hypertension, hyperlipidemia. Patient presented to the emergency room with increasing palpitations and chest pain. Patient reported palpitations today. She had 3 episodes of palpitations. Her last episode reported with chest pain that radiated to the left arm. She was concerned for this. She denied any headaches, dizziness, or shortness of breath. Patient came to the ER for further evaluation. In the ER patient was evaluated. Patient found to have atrial fibrillation with RVR. Patient was given IV metoprolol. Patient remains atrial fibrillation with rate around 110-120. Vital signs stable. Patient admitted for further evaluation and treatment. ER physician reports history of SVT in the past. Patient has received adenosine. Patient takes metoprolol at home along with lisinopril and cholesterol medication. Hospital Course: Patient presented with palpitations and chest pain. Patient found to have atrial fibrillation with RVR. Patient with prior history of hypertension and hyperlipidemia. Patient was treated in the course of her stay. Patient was seen by cardiology. Patient was transitioned to sotalol 80 mg 1 pill twice daily. Patient has done well. Patient remains in atrial fibrillation with rate control. Echocardiogram unremarkable. At discharge the patient will require sotalol and anticoagulation therapy. At discharge patient will continue with sotalol 80 mg 1 pill twice daily and Xarelto 20 mg daily with meal. Patient will follow up with cardiology in 1 to 2 weeks to follow his hospitalization. Education on atrial fibrillation, sotalol and Eliquis will be provided. Will make sure patient able to get her medications at discharge. Patient with history of hypertension. Patient previously on metoprolol and lisinopril hydrochlorothiazide. Both medications have been discontinued since the patient is on sotalol and blood pressure well controlled with current medication. Recommend to maintain blood pressure less then 130/80. If blood pressure remains above 140/90 consistently patient may require additional medication. This can be done with the help of her PCP. Patient with hyperlipidemia. At discharge patient will continue with Lipitor 20 mg daily. Patient with positive Covid. Patient asymptomatic. Chest x-ray unremarkable. No need for medication at this time. Education on COVID-19 provided. This will include at least 10 days of isolation. Patient will continue with handwashing, facemask use and social distancing. Recommend follow-up with PCP to further monitor and address. Vital Signs/Physical Exam: Temp Pulse Resp BP Pulse Ox 97.0 F 101 H 17 127/87 95 01/28/21 13:29 01/28/21 13:29 01/28/21 13:29 01/28/21 13:29 01/28/21 13:29 General: Alert, In no apparent distress, Oriented x3, Cooperative HEENT: Atraumatic Neck: Supple Respiratory: Clear to auscultation bilaterally, Normal air movement Cardiovascular: Irregular heart rate/rhythm (Atrial fibrillation rate controlled) Gastrointestinal: Normal bowel sounds, No tenderness, No masses, No rebound, No guarding Musculoskeletal: No erythema, No tenderness, No warmth Integumentary: No tenderness/swelling Neurological: Normal speech, Normal strength at 5/5 x4 extr, Normal tone, Normal affect Laboratory Data at Discharge: WBC 6.00 K/uL (4.3-10.9) 01/28/21 03:38 Hgb 13.2 g/dL (12.0-15.0) 01/28/21 03:38 Hct 40.1 % (36.0-45.0) 01/28/21 03:38 Plt Count 208 K/uL (152-406) 01/28/21 03:38 PT 11.6 SECONDS (9.5-12.5) 01/27/21 13:05 INR 1.01 01/27/21 13:05 Sodium 146 mmol/L (136-145) H 01/28/21 03:38 Potassium 4.0 mmol/L (3.5-5.1) 01/28/21 03:38 BUN 18 mg/dL (7-18) 01/28/21 03:38 Creatinine 0.49 mg/dL (0.55-1.3) L 01/28/21 03:38 Glucose 108 mg/dL (74-106) H 01/28/21 03:38 Magnesium 1.9 mg/dL (1.8-2.4) 01/28/21 03:38 Total Bilirubin 0.3 mg/dL (0.2-1.0) 01/28/21 03:38 AST 21 U/L (15-37) 01/28/21 03:38 ALT 30 U/L (12-78) 01/28/21 03:38 Alkaline Phosphatase 93 U/L (45-117) 01/28/21 03:38 Troponin I < 0.02 ng/mL (0.0-0.045) 01/27/21 18:14 Home Medications: Atorvastatin Calcium [Lipitor*] 20 mg PO BEDTIME 07/25/18 Rivaroxaban [Xarelto] 20 mg PO DAILY #30 tablet 01/28/21 Sotalol HCl [Betapace*] 80 mg PO BID 6AM 6PM #60 tab 01/28/21 New Medications: Sotalol HCl [Betapace*] 80 mg PO BID 6AM 6PM #60 tab Rivaroxaban [Xarelto] 20 mg PO DAILY #30 tablet Physician Discharge Instructions: Patient presented with palpitations and chest pain. Patient found to have atrial fibrillation with RVR. Patient with prior history of hypertension and hyperlipidemia. Patient was treated in the course of her stay. Patient was seen by cardiology. Patient was transitioned to sotalol 80 mg 1 pill twice daily. Patient has done well. Patient remains in atrial fibrillation with rate control. Echocardiogram unremarkable. At discharge the patient will require sotalol and anticoagulation therapy. At discharge patient will continue with sotalol 80 mg 1 pill twice daily and Xarelto 20 mg daily with meal. Patient will follow up with cardiology in 1 to 2 weeks to follow his hospitalization. Education on atrial fibrillation, sotalol and Eliquis will be provided. Will make sure patient able to get her medications at discharge. Patient with history of hypertension. Patient previously on metoprolol and lisinopril hydrochlorothiazide. Both medications have been discontinued since the patient is on sotalol and blood pressure well controlled with current medication. Recommend to maintain blood pressure less then 130/80. If blood pressure remains above 140/90 consistently patient may require additional medication. This can be done with the help of her PCP. Patient with hyperlipidemia. At discharge patient will continue with Lipitor 20 mg daily. Patient with positive Covid. Patient asymptomatic. Chest x-ray unremarkable. No need for medication at this time. Education on COVID-19 provided. This will include at least 10 days of isolation. Patient will continue with handwashing, facemask use and social distancing. Recommend follow-up with PCP to further monitor and address. Diet: AHA Activity: Ad nona Followup: Ruthie Davison MD [Primary Care Provider] - Time spent managing pt's care (in minutes): 55
[2021-01-28 14:58] VITALS: O2SAT 97
== END 2021-01-28 14:45 | disposition home or self-care (01) ==
LOC: ER 12:36 → ERHOLD 14:18
PROVIDERS: ADMIT Family Medicine; ATTEND Family Medicine
DX: I48.20 Chronic atrial fibrillation, unspecified (principal); I10 Essential (primary) hypertension; E78.5 Hyperlipidemia, unspecified; U07.1 COVID-19; Z79.01 Long term (current) use of anticoagulants; Z88.6 Allergy status to analgesic agent; Z87.11 Personal history of peptic ulcer disease
CPT/HCPCS: 93005 ×2; 93306; 85025 ×2; 80048; 36415; 83735 ×2; 82550 ×2; 85610; 80076; 84443; 84484 ×2; 82553 ×2; 84439; 80053; 83880; 71045; 96374; 99283; U0003; J1650 ×2; J7040; G0378 ×3

== ENCOUNTER 2024-02-06 14:30 | Inpatient (IN) | payer OTHER ==
--- OUTSIDE RECORDS SUMMARY | 2024-02-06 14:39 | XMS REPORT | Continuity of Care Document ---
Author Name Unknown Address [address] [facility] [place]. [address] [place] [address] [facility] Address [address] [facility] [place]. [address] [place] [address] Care Team Providers Care Glost Tile Sorter Name Role Phone Thomas Márquez Primary Care Physician Allergies, Adverse Reactions, Alerts Allergy Name Allergy Type Status Severity Reaction(s) Onset Date Inactive Date Treating Clinician Comments Source [place] - Intraven ous Propensi ty to adverse reaction to drug Active 16 00:00: 00 Armaan Smith Ibuprofe n - Oral Propensi ty to adverse reaction to drug Active 15 00:00: 00 Armaan Smith Ibuprofe n Propensi ty to adverse reaction to drug Active 3-05 00:00: 00 Armaan Smith Medications Ordered Medication Name Filled Medication Name Start Date Stop Date Current Medication? Ordering Clinician Indication Dosage Frequency Signature (SIG) Comments Components Source atorvastati n 20 mg tablet - 00:00: 00 Yes 1mg Armaan Smith sotalol 80 mg tablet - 00:00: 00 Yes 1mg Armaan Smith lisinopril 20 mg tablet -15 00:00: 00 Yes 2mg Armaan Smiht Bromfed DM 2 mg-30 mg-10 mg/5 mL oral syrup -16 00:00: 00 Yes 5mg/5 mL Armaan Smith TAKE 1 TABLET TWICE DAILY. -09 00:00: 00 Yes 80 Armaan Smith TAKE 1 TABLET DAILY. 1-09 00:00: 00 Yes 20 Armaan Smith TAKE 2 TABLETS BY MOUTH ONCE DAILY - 00:00: 00 Yes 20 Armaan Smith USE 2 SPRAYS IN EACH NOSTRIL ONCE DAILY 05-08 00:00: 00 09-11 00:00 :00 No 50 Armaantien Smith TAKE 2 TABLETS BY MOUTH ONCE DAILY 1-04 00:00: 00 09-11 00:00 :00 No 20 Armaan Smith TAKE 1 TABLET TWICE DAILY. 05-03 00:00: 00 09-11 00:00 :00 No 80 Armaantien Smith ATORVASTATI N CALCIUM 20 MG TABS 05-03 00:00: 00 09-11 00:00 :00 No Armaan Smith USE 2 SPRAYS IN EACH NOSTRIL ONCE DAILY 2022-04 00:00: 00 09-11 00:00 :00 No 50 Armaan Smith TAKE 10 ML EVERY 4-6 HOURS NEEDED FOR COUGH AND CONGESTION 2022-04 00:00: 00 09-11 00:00 :00 No [id number] Armaan Smith ACETAMINOPH EN/CODEINE PHOSPHATE 300-30 MG TABS 2022-04 00:00: 00 Yes Armaan Smith TAKE 1 TABLET TWICE DAILY. 12-14 00:00: 00 09-11 00:00 :00 No 80 Armaan Smith TAKE 1 TABLET DAILY. 12-14 00:00: 00 09-11 00:00 :00 No 20 Armaan Smith TAKE 2 TABLETS BY MOUTH ONCE DAILY 12-14 00:00: 00 09-11 00:00 :00 No 20 Armaan Smith 10 ML Q 4 TO 6 HOURS PRN COUGH FOR 5 DAYS 5- 00:00: 00 09-11 00:00 :00 No [id number] Armaan Smith TAKE 2 TABLETS BY MOUTH ONCE DAILY - 00:00: 00 09-11 00:00 :00 No 20 Armaantien Smith TAKE 1 TABLET DAILY. 08-22 00:00: 00 09-11 00:00 :00 No 20 Armaan Smith TAKE 1 TABLET TWICE DAILY. 4-25 00:00: 00 09-11 00:00 :00 No 80 Armaan Smith TAKE 1 TABLET DAILY. 2-10 00:00: 00 09-11 00:00 :00 No 20 Armaan Smith SOTALOL HCL 80 MG TABS 2-10 00:00: 00 09-11 00:00 :00 No Armaan Smith SOTALOL HCL 80 MG TABS 8-17 00:00: 00 09-11 00:00 :00 No Armaan Smith LISINOPRIL 20 MG TABS 8-17 00:00: 00 09-11 00:00 :00 No Armaan Smith lisinopril 20 mg tablet 6-27 00:00: 00 Yes 2mg Armaan Smith sotalol 80 mg tablet 6-27 00:00: 00 Yes 1mg Armaan Smith Dose Unknown 6-27 00:00: 00 Yes Armaan Smith clopidogrel 75 mg tablet 3-16 00:00: 00 Yes 1mg Armaan Smith sotalol 80 mg tablet 3-16 00:00: 00 Yes 1mg Armaan Smith SOTALOL HCL 80 MG TABS 3-16 00:00: 00 09-11 00:00 :00 No Armaan Smith lisinopril 20 mg tablet 1-31 00:00: 00 Yes 2mg Armaan Smith metoprolol succinate ER 25 mg tablet,exte nded release 24 hr 1-31 00:00: 00 Yes 1mg Armaan Smith Dose Unknown 1-31 00:00: 00 Yes Armaan Smith lisinopril 20 mg tablet 8-10 00:00: 00 Yes 2mg Armaan Smith metoprolol succinate ER 25 mg tablet,exte nded release 24 hr 8-10 00:00: 00 Yes 1mg Armaan Smith atorvastati n 20 mg tablet 0 8-10 00:00: 00 Yes 1mg Armaan Smith lisinopril 20 mg tablet 8-04 00:00: 00 Yes 2mg Armaan Smith metoprolol succinate ER 25 mg tablet,exte nded release 24 hr 8-04 00:00: 00 Yes 1mg Armaan Smith atorvastati n 20 mg tablet 8-04 00:00: 00 Yes 1mg Armaan Smith metoprolol succinate ER 25 mg tablet,exte nded release 24 hr 4- 00:00: 00 Yes 1mg Armaan Smith lisinopril 20 mg tablet 4 00:00: 00 Yes 2mg Armaan Smith atorvastati n 20 mg tablet 4 00:00: 00 Yes 1mg Armaan Smith ferrous sulfate 325 mg (65 mg iron) tablet,mitch yed release 08-23 00:00: 00 Yes 1(65 mg iron) Armaan Smith ferrous sulfate 325 mg (65 mg iron) tablet,mitch yed release 3 00:00: 00 Yes 1(65 mg iron) Armaan Smith lisinopril 20 mg tablet 2- 00:00: 00 Yes 2mg Armaan Smith metoprolol succinate ER 25 mg tablet,exte nded release 24 hr 2- 00:00: 00 Yes 1mg Armaan Smith atorvastati n 20 mg tablet 2- 00:00: 00 Yes 1mg Armaan Smith lisinopril 20 mg tablet 1- 00:00: 00 Yes 2mg Armaan Smith lisinopril 20 mg tablet 2019-04 2-05 00:00: 00 Yes 2mg Armaan Smith lisinopril 20 mg tablet 2019-04 1- 00:00: 00 Yes 2mg Armaan Smith metoprolol succinate ER 25 mg tablet,exte nded release 24 hr 2019-04- 00:00: 00 Yes 1mg Armaan Smith atorvastati n 20 mg tablet 2019-04 1- 00:00: 00 Yes 1mg Armaan Smith atorvastati n 20 mg tablet 11-15 00:00: 00 Yes 1mg Armaan Smith metoprolol succinate ER 25 mg tablet,exte nded release 24 hr 0 7-19 00:00: 00 Yes 1mg Armaan Smith lisinopril 20 mg tablet 0 7-19 00:00: 00 Yes 1mg Armaan Smith loratadine 10 mg tablet 0 7-15 00:00: 00 Yes 1mg Armaan Smith atorvastati n 20 mg tablet 0 -15 00:00: 00 Yes 1mg Armaan Smith metoprolol succinate ER 25 mg tablet,exte nded release 24 hr 0 -15 00:00: 00 Yes 1mg Armaan Smith lisinopril 20 mg tablet 0 -15 00:00: 00 Yes 1mg Armaan Smith Dose Unknown -15 00:00: 00 Yes Armaan Smith atorvastati n 20 mg tablet 0 6-17 00:00: 00 Yes 1mg Armaan Smith metoprolol succinate ER 25 mg tablet,exte nded release 24 hr 0 6-17 00:00: 00 Yes 1mg Armaan Smith lisinopril 20 mg tablet 0 6-17 00:00: 00 Yes 1mg Armaan Smith loratadine 10 mg tablet 0 6-17 00:00: 00 Yes 1mg Armaan Smith atorvastati n 20 mg tablet 0 5-04 00:00: 00 Yes 1mg Armaan Smith metoprolol succinate ER 25 mg tablet,exte nded release 24 hr 0 5-04 00:00: 00 Yes 1mg Armaan Smith lisinopril 20 mg tablet 0 5-04 00:00: 00 Yes 1mg Armaan Smith loratadine 10 mg tablet 0 3-05 00:00: 00 Yes 1mg Armaan Smith Augmentin 875 mg-125 mg tablet 0 3-05 00:00: 00 Yes 1mg Armaan Smith Flonase Allergy Relief 50 mcg/actuati on nasal spray,suspe nsion 0 3-05 00:00: 00 Yes 1mcg/ac tuation Armaan Smith Senna with Docusate Sodium 8.6 mg-50 mg tablet 0 1-21 00:00: 00 Yes 1mg Armaan Smith lisinopril 20 mg tablet 2018-04 00:00: 00 Yes 1mg Armaan Smith atorvastati n 20 mg tablet 2018-04 00:00: 00 Yes 1mg Armaan Smith metoprolol succinate ER 25 mg tablet,exte nded release 24 hr 2018-04 00:00: 00 Yes 1mg Armaan Smith Senna with Docusate Sodium 8.6 mg-50 mg tablet 2018-04 00:00: 00 Yes 1mg Armaan Smith lisinopril 20 mg tablet 01-13 00:00: 00 Yes 1mg Armaan Smith Senna with Docusate Sodium 8.6 mg-50 mg tablet 01-13 00:00: 00 Yes 1mg Armaan Smith metoprolol succinate ER 25 mg tablet,exte nded release 24 hr 10-07 00:00: 00 Yes 1mg Armaan Smith lisinopril 20 mg-hydrochl orothiazide 12.5 mg tablet 07-22 00:00: 00 Yes 1mg Armaan Smith lisinopril 20 mg-hydrochl orothiazide 12.5 mg tablet 06-26 00:00: 00 Yes 1mg Armaan Smith Tricor 145 mg tablet 2-13 00:00: 00 Yes 1mg Armaan Smith lovastatin 20 mg tablet 2 00:00: 00 Yes 1mg Armaan Smith metoprolol tartrate 25 mg tablet 2-11 00:00: 00 Yes 1mg Armaan Kianna Luis Immunizations Ordered Immunization Name Filled Immunization Name Date Status Comments Source SHINGRIX VACCINE SHINGRIX VACCINE 2023-06-01 00:00:00 Completed Armaan Smith SHINGRIX VACCINE SHINGRIX VACCINE 2022-12-14 00:00:00 Nicholas Smith Tdap Tdap 2018-07-22 00:00:00 Nicholas Smith zoster zoster 2018-07-22 00:00:00 Nicholas Smith Influenza, seasonal, inj Influenza, seasonal, inj 2018-06-26 00:00:00 Nicholas Smith Pneumococcal conjugate P Pneumococcal conjugate P 2018-06-26 00:00:00 Completed Armaan F Luis Vital Signs Vital Name Observation Time Observation Value Comments S ource BP Systolic 2023-11-12 10:43:00 150 mm[Hg] Step hen F Luis BP Diastolic 2023-11-12 10:43:00 73 mm[Hg] [place] phen F Luis Weight Measured 2023-11-12 10:43:00 207.60 pounds Armaan F Luis Height Measured 2023-11-12 10:43:00 62.00 inches Armaan F Luis Body Temperature 2023-11-12 10:43:00 97.30 degrees Armaan F Luis Heart Rate 2023-11-12 10:43:00 60.00 /min Brittany en F Luis Respiratory Rate 2023-11-12 10:43:00 18.00 /min Armaan F Luis BP Systolic 2023-06-01 08:49:00 162 mm[Hg] Step hen F Luis BP Diastolic 2023-06-01 08:49:00 88 mm[Hg] [place] phen F Luis Weight Measured 2023-06-01 08:49:00 201.60 pounds Armaan F Luis Height Measured 2023-06-01 08:49:00 62.00 inches Armaan F Luis Body Temperature 2023-06-01 08:49:00 97.80 degrees Armaan F Luis Heart Rate 2023-06-01 08:49:00 60.00 /min Brittany en F Luis Respiratory Rate 2023-06-01 08:49:00 16.00 /min Armaan F Luis BP Systolic 2023-05-03 12:02:00 189 mm[Hg] Step hen F Luis BP Diastolic 2023-05-03 12:02:00 102 mm[Hg] [place] phen F Luis Weight Measured 2023-05-03 12:02:00 195.20 pounds Armaan F Luis Height Measured 2023-05-03 12:02:00 62.00 inches Armaan F Luis Body Temperature 2023-05-03 12:02:00 97.40 degrees Armaan F Luis Heart Rate 2023-05-03 12:02:00 60.00 /min Brittany en F Luis Respiratory Rate 2023-05-03 12:02:00 Armaan F Luis BP Systolic 2023-05-03 11:42:00 189 mm[Hg] Step hen F Luis BP Diastolic 2023-05-03 11:42:00 102 mm[Hg] [place] phen F Luis Weight Measured 2023-05-03 11:42:00 195.20 pounds Armaan F Luis Height Measured 2023-05-03 11:42:00 62.00 inches Armaan F Luis Body Temperature 2023-05-03 11:42:00 97.40 degrees Armaan F Luis Heart Rate 2023-05-03 11:42:00 60.00 /min Brittany en F Luis Respiratory Rate 2023-05-03 11:42:00 Armaan F Luis BP Systolic 2023-03-20 10:55:00 123 mm[Hg] Step hen F Luis BP Diastolic 2023-03-20 10:55:00 67 mm[Hg] [place] phen F Luis Weight Measured 2023-03-20 10:55:00 195.80 pounds Armaan F Luis Height Measured 2023-03-20 10:55:00 62.00 inches Armaan F Luis Body Temperature 2023-03-20 10:55:00 97.40 degrees Armaan F Luis Heart Rate 2023-03-20 10:55:00 66.00 /min Brittany en F Luis Respiratory Rate 2023-03-20 10:55:00 Armaan F Luis BP Systolic 2022-12-14 08:34:00 141 mm[Hg] Step hen F Luis BP Diastolic 2022-12-14 08:34:00 64 mm[Hg] [place] phen F Luis Weight Measured 2022-12-14 08:34:00 201.60 pounds Armaan F Luis Height Measured 2022-12-14 08:34:00 62.00 inches Armaan F Luis Body Temperature 2022-12-14 08:34:00 97.40 degrees Armaan F Luis Heart Rate 2022-12-14 08:34:00 58.00 /min Brittany en F Luis Respiratory Rate 2022-12-14 08:34:00 Armaan F Luis BP Systolic 2022-09-25 09:19:00 130 mm[Hg] Step hen F Luis BP Diastolic 2022-09-25 09:19:00 70 mm[Hg] [place] phen F Luis Weight Measured 2022-09-25 09:19:00 199.20 pounds Armaan F Luis Height Measured 2022-09-25 09:19:00 62.00 inches Armaan F Luis Body Temperature 2022-09-25 09:19:00 97.20 degrees Armaan F Luis Heart Rate 2022-09-25 09:19:00 110.00 /min Step hen F Ulis Respiratory Rate 2022-09-25 09:19:00 Armaan F Luis BP Systolic 2022-08-22 15:31:00 175 mm[Hg] Step hen F Luis BP Diastolic 2022-08-22 15:31:00 78 mm[Hg] [place] phen F Luis Weight Measured 2022-08-22 15:31:00 204.40 pounds Armaan F Luis Height Measured 2022-08-22 15:31:00 62.00 inches Armaan F Luis Body Temperature 2022-08-22 15:31:00 97.70 degrees Armaan F Luis Heart Rate 2022-08-22 15:31:00 69.00 /min Brittany en F Luis Respiratory Rate 2022-08-22 15:31:00 Armaan F Luis BP Systolic 2022-06-24 10:22:00 160 mm[Hg] Step hen F Luis BP Diastolic 2022-06-24 10:22:00 86 mm[Hg] [place] phen F Luis Weight Measured 2022-06-24 10:22:00 205.00 pounds Armaan F Luis Height Measured 2022-06-24 10:22:00 62.00 inches Armaan F Luis Body Temperature 2022-06-24 10:22:00 98.60 degrees Armaan F Luis Heart Rate 2022-06-24 10:22:00 62.00 /min Brittany en F Luis Respiratory Rate 2022-06-24 10:22:00 Armaan F Luis BP Systolic 2022-06-09 11:01:00 127 mm[Hg] Step hen F Luis BP Diastolic 2022-06-09 11:01:00 63 mm[Hg] [place] phen F Luis Weight Measured 2022-06-09 11:01:00 208.00 pounds Armaan F Luis Height Measured 2022-06-09 11:01:00 62.00 inches Armaan F Luis Body Temperature 2022-06-09 11:01:00 97.80 degrees Armaan F Luis Heart Rate 2022-06-09 11:01:00 79.00 /min Brittany en F Luis Respiratory Rate 2022-06-09 11:01:00 18.00 /min Armaan Smith BP Systolic 2021-12-14 11:38:00 144 mm[Hg] Sohail Smith BP Diastolic 2021-12-14 11:38:00 83 mm[Hg] [place] Smith Weight Measured 2021-12-14 11:38:00 210.00 pounds Armaan Smith Height Measured 2021-12-14 11:38:00 62.00 inches Armaan Smith Body Temperature 2021-12-14 11:38:00 98.00 degrees Armaan Smith Heart Rate 2021-12-14 11:38:00 76.00 /min Brittany en Kianna Smith Respiratory Rate 2021-12-14 11:38:00 18.00 /min Armaan Smith Procedures Procedure Date / Time Performed Performing Clinicia n Source [id number] Ecg Routine Ecg W/least 12 Lds W/i r 2016-06-09 00:00:00 Armaan Smith Encounters Start Date/Time End Date/Time Encounter Type Admission Type Attending [facility] Care Department Encounter ID Source 2023-11-12 10:32:57 2023-11-12 10:32:57 Outpatient [facility] [id number] Armaan Smith 2023-11-12 00:00:00 2023-11-12 00:00:00 Outpatient Visit [facility] [id number] Armaan Smith 2023-09-14 08:17:17 2023-09-14 08:17:17 Outpatient [facility] [id number] Armaan Smith 2023-09-13 17:28:21 2023-09-13 17:28:21 Outpatient [facility] [id number] Armaan Smith 2023-09-13 00:00:00 2023-09-13 00:00:00 Outpatient Visit [facility] [id number] Armaan Smith 2023-05-03 11:30:30 2023-05-03 11:30:30 Outpatient [facility] [id number] Armaan Smith 2023-03-20 10:54:45 2023-03-20 10:54:45 Outpatient [facility] [id number] Armaan Smith 2022-12-14 11:53:31 2022-12-14 11:53:31 Outpatient [facility] [id number] Armaan Smith 2022-09-25 09:18:42 2022-09-25 09:18:42 Outpatient [facility] [id number] Armaan Smith 2022-08-22 15:30:04 2022-08-22 15:30:04 Outpatient [facility] [id number] Armaan Smith 2022-07-07 11:26:33 2022-07-07 11:26:33 Outpatient [facility] [id number] Armaan Smith 2022-06-24 10:15:31 2022-06-24 10:15:31 Outpatient [facility] [id number] Armaan Smith 2022-06-09 10:54:39 2022-06-09 10:54:39 Outpatient [facility] [id number] Armaan Smith Results Test Description Test Time Test Comments Results Result Co mments Source COMPREHENSIVE METABOLIC [id number] 04:49:54* Test Item Value Reference Range Interpretation Comme nts GLUCOSE (test code = 2217) 116 MG/DL 70-99 H BUN (test code = 2208) 15 MG/DL 8-23 CREATININE (test code = 2214) 0.64 MG/DL 0.60-1.30 eGFR (2020 CKD-EPI) (test code = 96363) 95 ML/MIN/1.73 >60 CALC BUN/CREAT (test code = 2235) 23 RATIO 6-28 SODIUM (test code = 2231) 141 MEQ/L 133-146 POTASSIUM (test code = 2228) 5.2 MEQ/L 3.5-5.4 CHLORIDE (test code = 2215) 106 MEQ/L 95-107 CARBON DIOXIDE (test code = 2206) 27 MEQ/L 19-31 CALCIUM (test code = 2209) 9.5 MG/DL 8.5-10.5 PROTEIN, TOTAL (test code = 2229) 7.1 G/DL 6.1-8.3 ALBUMIN (test code = 2201) 4.0 G/DL 3.5-5.2 CALC GLOBULIN (test code = 2240) 3.1 G/DL 1.9-3.7 CALC A/G RATIO (test code = 2234) 1.3 RATIO 1.0-2.6 BILIRUBIN, TOTAL (test code = 2207) 0.5 MG/DL <=1.2 ALKALINE PHOSPHATASE (test code = 2204) 117 U/L 40-142 AST (test code = 2218) 42 U/L 9-40 H ALT (test code = 2219) 28 U/L 5-40 UNLESS OTHERWISE INDICATED, ALL TESTING PERFORMED AT [facility] [address] [place] [id number] SAP [place] ANALYST: ZEKE BOGGS M.D. IA NUMBER [id number] [facility]. [id number] HEMOGLOBIN [id number] 02:57:59* Test Item Value Reference Range Interpretation Comme nts HEMOGLOBIN A1c (test code = 17696) 6.2 % 4.2-5.6 H [employer] GUIDELINES FOR HGB A1C: PREDIABETES/INCREASED RISK . . . . . . . 5.7-6.4% DIAGNOSIS OF DIABETES . . . . . . . . . >=6.5% WITH CONFIRMATION OR APPROPRIATE SYMPTOMS NOTE: ASSAY MAY BE AFFECTED BY HEMOGLOBINOPATHIES (SICKLE CELL ANEMIA, S-C DISEASE, OTHERS) OR ARTIFICIALLY LOWERED BY DECREASED RED CELL SURVIVAL (HEMOLYTIC ANEMIAS, BLOOD LOSS, ETC.). CONSIDER ALTERNATE TESTING OR LABORATORY CONSULTATION. LIPID [id number] 05:22:14* Test Item Value Reference Range Interpretation Comme nts CHOLESTEROL (test code = 2210) 154 MG/DL <200 TRIGLYCERIDES (test code = 2232) 139 MG/DL <150 HDL CHOLESTEROL (test code = 2220) 46 MG/DL >39 CALC LDL CHOL (test code = 2237) 84 MG/DL <100 NOTE: CALCULATED LDL IS BASED ON DANILO-MCINTYRE METHOD WHICHINCLUDES ADJUSTABLE TRIGLYCERIDE:VLDL CHOLESTEROL RATIO.THIS FACTOR VARIES BY MEASURED TRIGLYCERIDE AND NON-HDLCHOLESTEROL CONCENTRATIONS WITH INCREASED CALCULATED LDL SEENIN HIGHER TRIGLYCERIDE OR LOWER NON-HDL SPECIMENS. FOR MOREINFORMATION, SEE CLIENT ANNOUNCEMENT AT [email or web address] RISK RATIO LDL/HDL (test code = 2238) 1.83 RATIO <3.22 COMPREHENSIVE METABOLIC [id number] 05:22:14* Test Item Value Reference Range Interpretation Comme nts GLUCOSE (test code = 2216) 99 MG/DL 70-99 BUN (test code = 2207) 13 MG/DL 8-23 CREATININE (test code = 2213) 0.56 MG/DL 0.60-1.30 L eGFR (2020 CKD-EPI) (test code = 91366) 99 ML/MIN/1.73 >60 CALC BUN/CREAT (test code = 2234) 23 RATIO 6-28 SODIUM (test code = 2230) 140 MEQ/L 133-146 POTASSIUM (test code = 2227) 4.6 MEQ/L 3.5-5.4 CHLORIDE (test code = 2214) 104 MEQ/L 95-107 CARBON DIOXIDE (test code = 2205) 25 MEQ/L 19-31 CALCIUM (test code = 2208) 8.8 MG/DL 8.5-10.5 PROTEIN, TOTAL (test code = 2228) 7.0 G/DL 6.1-8.3 ALBUMIN (test code = 2200) 4.1 G/DL 3.5-5.2 CALC GLOBULIN (test code = 2240) 2.9 G/DL 1.9-3.7 CALC A/G RATIO (test code = 2233) 1.4 RATIO 1.0-2.6 BILIRUBIN, TOTAL (test code = 2206) 0.5 MG/DL <=1.2 ALKALINE PHOSPHATASE (test code = 2203) 100 U/L 40-142 AST (test code = 2217) 26 U/L 9-40 ALT (test code = 2219) 22 U/L 5-40 UNLESS OTHERWISE INDICATED, ALL TESTING PERFORMED AT [facility] [address] [place] [id number] [employer] [place] ANALYST: ZEKE BOGGS M.D. CLIA NUMBER [id number] [facility]. [id number] HEMOGLOBIN [id number] 03:32:56* Test Item Value Reference Range Interpretation Comme nts HEMOGLOBIN A1c (test code = 61198) 6.3 % 4.2-5.6 H [employer] GUIDELINES FOR HGB A1C: PREDIABETES/INCREASED RISK . . . . . . . 5.7-6.4% DIAGNOSIS OF DIABETES . . . . . . . . . >=6.5% WITH CONFIRMATION OR APPROPRIATE SYMPTOMS NOTE: ASSAY MAY BE AFFECTED BY HEMOGLOBINOPATHIES (SICKLE CELL ANEMIA, S-C DISEASE, OTHERS) OR ARTIFICIALLY LOWERED BY DECREASED RED CELL SURVIVAL (HEMOLYTIC ANEMIAS, BLOOD LOSS, ETC.). CONSIDER ALTERNATE TESTING OR LABORATORY CONSULTATION. COMPREHENSIVE METABOLIC [id number] 00:00:00* Test Item Value Reference Range Interpretation Comme nts GLUCOSE (test code = 2217) 99 MG/DL BUN (test code = 2208) 13 MG/DL CREATININE (test code = 2214) 0.56 MG/DL eGFR (2020 CKD-EPI) (test co de = 74832) 99 ML/MIN/1.73 CALC BUN/CREAT (test code = 2235) 23 RATIO SODIUM (test code = 2231) 140 MEQ/L POTASSIUM (test code = 2228) 4.6 MEQ/L CHLORIDE (test code = 2215) 104 MEQ/L CARBON DIOXIDE (test code = 2206) 25 MEQ/L CALCIUM (test code = 2209) 8.8 MG/DL PROTEIN, TOTAL (test code = 2229) 7.0 G/DL ALBUMIN (test code = 2201) 4.1 G/DL CALC GLOBULIN (test code = 2240) 2.9 G/DL CALC A/G RATIO (test code = 2234) 1.4 RATIO BILIRUBIN, TOTAL (test code = 2207) 0.5 MG/DL ALKALINE PHOSPHATASE (test code = 2204) 100 U/L AST (test code = 2218) 26 U/L ALT (test code = 2219) 22 U/L Armaan SmithHEMOGLOBIN [id number] 00:00:00* Test Item Value Reference Range Interpretation Comme nts HEMOGLOBIN A1c (test code = 29386) 6.3 % Armaan SmithLIPID [id number] 00:00:00* Test Item Value Reference Range Interpretation Comme nts CHOLESTEROL (test code = 2210) 154 MG/DL TRIGLYCERIDES (test code = 2232) 139 MG/DL HDL CHOLESTEROL (test code = 2220) 46 MG/DL CALC LDL CHOL (test code = 2237) 84 MG/DL RISK RATIO LDL/HDL (test cod e = 2238) 1.83 RATIO Armaan F LuisCOMPREHENSIVE METABOLIC [id number] 00:00:00* Test Item Value Reference Range Interpretation Comme nts GLUCOSE (test code = 2217) 99 MG/DL BUN (test code = 2208) 13 MG/DL CREATININE (test code = 2214) 0.56 MG/DL eGFR (2020 CKD-EPI) (test co de = 83283) 99 ML/MIN/1.73 CALC BUN/CREAT (test code = 2235) 23 RATIO SODIUM (test code = 2231) 140 MEQ/L POTASSIUM (test code = 2228) 4.6 MEQ/L CHLORIDE (test code = 2215) 104 MEQ/L CARBON DIOXIDE (test code = 2206) 25 MEQ/L CALCIUM (test code = 2209) 8.8 MG/DL PROTEIN, TOTAL (test code = 2229) 7.0 G/DL ALBUMIN (test code = 2201) 4.1 G/DL CALC GLOBULIN (test code = 2240) 2.9 G/DL CALC A/G RATIO (test code = 2234) 1.4 RATIO BILIRUBIN, TOTAL (test code = 2207) 0.5 MG/DL ALKALINE PHOSPHATASE (test code = 2204) 100 U/L AST (test code = 2218) 26 U/L ALT (test code = 2219) 22 U/L Armaan Hutchison AustinHEMOGLOBIN [id number] 00:00:00* Test Item Value Reference Range Interpretation Comme nts HEMOGLOBIN A1c (test code = 91508) 6.3 % Armaan Hutchison AustinLIPID [id number] 00:00:00* Test Item Value Reference Range Interpretation Comme nts CHOLESTEROL (test code = 2210) 154 MG/DL TRIGLYCERIDES (test code = 2232) 139 MG/DL HDL CHOLESTEROL (test code = 2220) 46 MG/DL CALC LDL CHOL (test code = 2237) 84 MG/DL RISK RATIO LDL/HDL (test cod e = 2238) 1.83 RATIO Armaan Hutchison [place]HEMOGLOBIN [id number] 05:12:23* Test Item Value Reference Range Interpretation Comme nts HEMOGLOBIN A1c (test code = 01779) 6.2 % 4.2-5.6 H [employer] GUIDELINES FOR HGB A1C: PREDIABETES/INCREASED RISK . . . . . . . 5.7-6.4% DIAGNOSIS OF DIABETES . . . . . . . . . >=6.5% WITH CONFIRMATION OR APPROPRIATE SYMPTOMS NOTE: ASSAY MAY BE AFFECTED BY HEMOGLOBINOPATHIES (SICKLE CELL ANEMIA, S-C DISEASE, OTHERS) OR ARTIFICIALLY LOWERED BY DECREASED RED CELL SURVIVAL (HEMOLYTIC ANEMIAS, BLOOD LOSS, ETC.). CONSIDER ALTERNATE TESTING OR LABORATORY CONSULTATION. CBC W/AUTO DIFF WITH [id number] 04:22:25* Test Item Value Reference Range Interpretation Comme nts WBC (test code = 1001) 5.2 K/UL 3.5-11.0 RBC (test code = 1002) 4.54 M/UL 3.80-5.40 HEMOGLOBIN (test code = 1003) 12.2 G/DL 11.5-15.5 HEMATOCRIT (test code = 1004) 39.6 % 34.0-45.0 MCV (test code = 1005) 87.2 fL 80.0-99.0 MCH (test code = 1006) 26.9 PG 25.0-33.0 MCHC (test code = 1007) 30.8 G/DL 31.0-36.0 L RDW (test code = 1038) 14.4 % 11.5-15.0 NEUTROPHILS (test code = 1008) 57.8 % LYMPHOCYTES (test code = 1010) 30.3 % MONOCYTES (test code = 1011) 7.3 % EOSINOPHILS (test code = 1012) 3.6 % BASOPHILS (test code = 1013) 0.8 % IMMATURE GRANULOCYTES (test code = 1036) 0.2 % NUCLEATED RBCS (test code = 1065) 0.0 /100 WBC'S See_Comment [Automated message] The system which generated this result transmitted reference range: 0.0. The reference range was not used to interpret this result as normal/abnormal. PLATELET COUNT (test code = 1015) 234 K/UL 130-400 ABSOLUTE NEUTROPHILS (test code = 1066) 3.01 K/UL 1.50-7.50 ABSOLUTE LYMPHOCYTES (test code = 1067) 1.58 K/UL 1.00-4.00 ABSOLUTE MONOCYTES (test code = 1068) 0.38 K/UL 0.20-1.00 ABSOLUTE EOSINOPHILS (test code = 1040) 0.19 K/UL 0.00-0.50 ABSOLUTE BASOPHILS (test code = 1069) 0.04 K/UL 0.00-0.20 ABS IMMATURE GRANULOCYTES (test code = 1020) 0.01 K/UL 0.00-0.10 ABS NUCLEATED RBCS (test code = 84704) 0.00 K/UL 0.00-0.11 UNLESS OTHER BARNES INDICATED, ALL TESTING PERFORMED AT [facility] [address] [place] [id number] [employer] ANALYST: ZEKE BOGGS M.D. IA NUMBER [id number] [facility] [place]. [id number] COMPREHENSIVE METABOLIC [id number] 03:49:35* Test Item Value Reference Range Interpretation Comme nts GLUCOSE (test code = 2217) 115 MG/DL 70-99 H BUN (test code = 220) 12 MG/DL 8-23 CREATININE (test code = 2214) 0.57 MG/DL 0.60-1.30 L eGFR (2020 CKD-EPI) (test code = 26758) 98 ML/MIN/1.73 >60 CALC BUN/CREAT (test code = 2235) 21 RATIO 6-28 SODIUM (test code = 223) 139 MEQ/L 133-146 POTASSIUM (test code = 2228) 4.8 MEQ/L 3.5-5.4 CHLORIDE (test code = 2215) 103 MEQ/L 95-107 CARBON DIOXIDE (test code = 2206) 27 MEQ/L 19-31 CALCIUM (test code = 2209) 9.3 MG/DL 8.5-10.5 PROTEIN, TOTAL (test code = 2229) 7.0 G/DL 6.1-8.3 ALBUMIN (test code = 2201) 4.2 G/DL 3.5-5.2 CALC GLOBULIN (test code = 2240) 2.8 G/DL 1.9-3.7 CALC A/G RATIO (test code = 2234) 1.5 RATIO 1.0-2.6 BILIRUBIN, TOTAL (test code = 2207) 0.5 MG/DL See_Comment [Automated me ssage] The system which generated this result transmitted reference range: <=1.2. The reference range was not used to interpret this result as normal/abnormal. ALKALINE PHOSPHATASE (test code = 2204) 99 U/L 40-142 AST (test code = 2218) 25 U/L 9-40 ALT (test code = 2219) 17 U/L 5-40 LIPID [id number] 03:49:35* Test Item Value Reference Range Interpretation Comme nts CHOLESTEROL (test code = 2210) 163 MG/DL <200 TRIGLYCERIDES (test code = 2232) 178 MG/DL <150 H HDL CHOLESTEROL (test code = 2220) 45 MG/DL >39 CALC LDL CHOL (test code = 2237) 91 MG/DL <100 NOTE: CALCULATED LDL IS BASED ON DANILO-MCINTYRE METHOD WHICHINCLUDES ADJUSTABLE TRIGLYCERIDE:VLDL CHOLESTEROL RATIO.THIS FACTOR VARIES BY MEASURED TRIGLYCERIDE AND NON-HDLCHOLESTEROL CONCENTRATIONS WITH INCREASED CALCULATED LDL SEENIN HIGHER TRIGLYCERIDE OR LOWER NON-HDL SPECIMENS. FOR MOREINFORMATION, SEE CLIENT ANNOUNCEMENT AT [email or web address] RISK RATIO LDL/HDL (test code = 2238) 2.02 RATIO <3.22 HEMOGLOBIN [id number] 00:00:00* Test Item Value Reference Range Interpretation Comme nts HEMOGLOBIN A1c (test code = 89216) 6.2 % Armaan Hutchison LuisCBC W/AUTO [id number] 00:00:00* Test Item Value Reference Range Interpretation Comme nts WBC (test code = 1001) 5.2 K/UL RBC (test code = 1002) 4.54 M/UL HEMOGLOBIN (test code = 1003) 12.2 G/DL HEMATOCRIT (test code = 1004) 39.6 % MCV (test code = 1005) 87.2 fL MCH (test code = 1006) 26.9 PG MCHC (test code = 1007) 30.8 G/DL RDW (test code = 1038) 14.4 % NEUTROPHILS (test code = 1008) 57.8 % LYMPHOCYTES (test code = 1010) 30.3 % MONOCYTES (test code = 1011) 7.3 % EOSINOPHILS (test code = 1012) 3.6 % BASOPHILS (test code = 1013) 0.8 % IMMATURE GRANULOCYTES (test code = 1036) 0.2 % NUCLEATED RBCS (test code = 1065) 0.0 /100WBC'S PLATELET COUNT (test code = 1015) 234 K/UL ABSOLUTE NEUTROPHILS (test c ode = 1066) 3.01 K/UL ABSOLUTE LYMPHOCYTES (test c ode = 1067) 1.58 K/UL ABSOLUTE MONOCYTES (test cod e = 1068) 0.38 K/UL ABSOLUTE EOSINOPHILS (test c ode = 1040) 0.19 K/UL ABSOLUTE BASOPHILS (test cod e = 1069) 0.04 K/UL ABS IMMATURE GRANULOCYTES (t est code = 1020) 0.01 K/UL ABS NUCLEATED RBCS (test cod e = 56592) 0.00 K/UL Armaan SmithCOMPREHENSIVE METABOLIC [id number] 00:00:00* Test Item Value Reference Range Interpretation Comme nts GLUCOSE (test code = 2217) 115 MG/DL BUN (test code = 2208) 12 MG/DL CREATININE (test code = 2214) 0.57 MG/DL eGFR (2020 CKD-EPI) (test co de = 12867) 98 ML/MIN/1.73 CALC BUN/CREAT (test code = 2235) 21 RATIO SODIUM (test code = 2231) 139 MEQ/L POTASSIUM (test code = 2228) 4.8 MEQ/L CHLORIDE (test code = 2215) 103 MEQ/L CARBON DIOXIDE (test code = 2206) 27 MEQ/L CALCIUM (test code = 2209) 9.3 MG/DL PROTEIN, TOTAL (test code = 2229) 7.0 G/DL ALBUMIN (test code = 2201) 4.2 G/DL CALC GLOBULIN (test code = 2240) 2.8 G/DL CALC A/G RATIO (test code = 2234) 1.5 RATIO BILIRUBIN, TOTAL (test code = 2207) 0.5 MG/DL ALKALINE PHOSPHATASE (test code = 2204) 99 U/L AST (test code = 2218) 25 U/L ALT (test code = 2219) 17 U/L Armaan SmithLIPID [id number] 00:00:00* Test Item Value Reference Range Interpretation Comme nts CHOLESTEROL (test code = 2210) 163 MG/DL TRIGLYCERIDES (test code = 2232) 178 MG/DL HDL CHOLESTEROL (test code = 2220) 45 MG/DL CALC LDL CHOL (test code = 2237) 91 MG/DL RISK RATIO LDL/HDL (test cod e = 2238) 2.02 RATIO Armaan SmithHEMOGLOBIN [id number] 00:00:00* Test Item Value Reference Range Interpretation Comme nts HEMOGLOBIN A1c (test code = 53555) 6.2 % Armaan Hutchison LuisCBC W/AUTO [id number] 00:00:00* Test Item Value Reference Range Interpretation Comme nts WBC (test code = 1001) 5.2 K/UL RBC (test code = 1002) 4.54 M/UL HEMOGLOBIN (test code = 1003) 12.2 G/DL HEMATOCRIT (test code = 1004) 39.6 % MCV (test code = 1005) 87.2 fL MCH (test code = 1006) 26.9 PG MCHC (test code = 1007) 30.8 G/DL RDW (test code = 1038) 14.4 % NEUTROPHILS (test code = 1008) 57.8 % LYMPHOCYTES (test code = 1010) 30.3 % MONOCYTES (test code = 1011) 7.3 % EOSINOPHILS (test code = 1012) 3.6 % BASOPHILS (test code = 1013) 0.8 % IMMATURE GRANULOCYTES (test code = 1036) 0.2 % NUCLEATED RBCS (test code = 1065) 0.0 /100WBC'S PLATELET COUNT (test code = 1015) 234 K/UL ABSOLUTE NEUTROPHILS (test c ode = 1066) 3.01 K/UL ABSOLUTE LYMPHOCYTES (test c ode = 1067) 1.58 K/UL ABSOLUTE MONOCYTES (test cod e = 1068) 0.38 K/UL ABSOLUTE EOSINOPHILS (test c ode = 1040) 0.19 K/UL ABSOLUTE BASOPHILS (test cod e = 1069) 0.04 K/UL ABS IMMATURE GRANULOCYTES (t est code = 1020) 0.01 K/UL ABS NUCLEATED RBCS (test cod e = 55764) 0.00 K/UL Armaan SmithCOMPREHENSIVE METABOLIC [id number] 00:00:00* Test Item Value Reference Range Interpretation Comme nts GLUCOSE (test code = 2217) 115 MG/DL BUN (test code = 2208) 12 MG/DL CREATININE (test code = 2214) 0.57 MG/DL eGFR (2020 CKD-EPI) (test co de = 19708) 98 ML/MIN/1.73 CALC BUN/CREAT (test code = 2235) 21 RATIO SODIUM (test code = 2231) 139 MEQ/L POTASSIUM (test code = 2228) 4.8 MEQ/L CHLORIDE (test code = 2215) 103 MEQ/L CARBON DIOXIDE (test code = 2206) 27 MEQ/L CALCIUM (test code = 2209) 9.3 MG/DL PROTEIN, TOTAL (test code = 2229) 7.0 G/DL ALBUMIN (test code = 2201) 4.2 G/DL CALC GLOBULIN (test code = 2240) 2.8 G/DL CALC A/G RATIO (test code = 2234) 1.5 RATIO BILIRUBIN, TOTAL (test code = 2207) 0.5 MG/DL ALKALINE PHOSPHATASE (test code = 2204) 99 U/L AST (test code = 2218) 25 U/L ALT (test code = 2219) 17 U/L Armaan SmithLIPID [id number] 00:00:00* Test Item Value Reference Range Interpretation Comme nts CHOLESTEROL (test code = 2210) 163 MG/DL TRIGLYCERIDES (test code = 2232) 178 MG/DL HDL CHOLESTEROL (test code = 2220) 45 MG/DL CALC LDL CHOL (test code = 2237) 91 MG/DL RISK RATIO LDL/HDL (test cod e = 2238) 2.02 RATIO Armaan Hutchison AustinOCCULT BLD,FECAL,IMMUNOASSAY [id number] 12:27:29* Test Item Value Reference Range Interpretation Comme nts OCCULT BLD, FECAL (test code = 29966) NEGATIVE NEGATIVE [facility] has important pathology staff changes effective 06/28/2022. New pathology staff will provide uninterrupted, excellent patient care and clinical consultation. See URL: [email or web address]. UNLESS OTHERWISE INDICATED, ALL TESTING PERFORMED AT [facility] [address] [place] [id number] [employer] SD ANALYST: ZEEK BOGGS M.D. CLIA NUMBER [id number] [facility]. [id number] OCCULT BLD,FECAL,IMMUNOASSAY [id number] 00:00:00* Test Item Value Reference Range Interpretation Comme nts OCCULT BLD, FECAL (test code = 18991) NEGATIVE Armaan F AustinOCCULT BLD,FECAL,IMMUNOASSAY [id number] 00:00:00* Test Item Value Reference Range Interpretation Comme nts OCCULT BLD, FECAL (test code = 22862) NEGATIVE Armaan F AustinOCCULT BLD,FECAL,IMMUNOASSAY [id number] 10:34:27* Test Item Value Reference Range Interpretation Comme nts OCCULT BLD, FECAL (test code = 21205) NEGATIVE NEGATIVE OCCULT BLD,FECAL,IMMUNOASSAY [id number] 00:00:00* Test Item Value Reference Range Interpretation Comme nts OCCULT BLD, FECAL (test code = 51612) NEGATIVE Armaan Hutchison AustinOCCULT BLD,FECAL,IMMUNOASSAY [id number] 00:00:00* Test Item Value Reference Range Interpretation Comme nts OCCULT BLD, FECAL (test code = 76122) NEGATIVE Armaan Hutchison AustinUNLABELLED [id number] 06:05:04* Test Item Value Reference Range Interpretation Comme nts NOTE: (test code = 99527) SPECIMEN RECEIVE D WITHOUT PATIENT'S NAME. [facility] has important pathology staff changes effective 06/28/2022. New pathology staff will provide uninterrupted, excellent patient care and clinical consultation. See URL: [email or web address]. UNLESS OTHERWISE INDICATED, ALL TESTING PERFORMED AT [facility] [address] [place] [address] CLIA: [id number], CAP: [id number] UNLABELLED SPECIMEN [ADDED]2022-06-17 00:00:00* Test Item Value Reference Range Interpretation Comme nts NOTE: (test code = 82393) Armaan Hutchison AustinUNLABELLED SPECIMEN [ADDED]2022-06-17 00:00:00* Test Item Value Reference Range Interpretation Comme nts NOTE: (test code = 52154) Armaan SmithCOMPREHENSIVE METABOLIC [id number] 04:20:04* Test Item Value Reference Range Interpretation Comme nts GLUCOSE (test code = 2217) 113 MG/DL 70-99 H BUN (test code = 2208) 15 MG/DL 8-23 CREATININE (test code = 2214) 0.61 MG/DL 0.60-1.30 eGFR (2020 CKD-EPI) (test code = 95817) 97 ML/MIN/1.73 >60 CALC BUN/CREAT (test code = 2235) 25 RATIO 6-28 SODIUM (test code = 2231) 142 MEQ/L 133-146 POTASSIUM (test code = 2228) 4.6 MEQ/L 3.5-5.4 CHLORIDE (test code = 2215) 106 MEQ/L 95-107 CARBON DIOXIDE (test code = 2206) 26 MEQ/L 19-31 CALCIUM (test code = 2209) 9.4 MG/DL 8.5-10.5 PROTEIN, TOTAL (test code = 2229) 7.3 G/DL 6.1-8.3 ALBUMIN (test code = 2201) 4.2 G/DL 3.5-5.2 CALC GLOBULIN (test code = 2240) 3.1 G/DL 1.9-3.7 CALC A/G RATIO (test code = 2234) 1.4 RATIO 1.0-2.6 BILIRUBIN, TOTAL (test code = 2207) 0.4 MG/DL See_Comment [Automated me ssage] The system which generated this result transmitted reference range: <=1.2. The reference range was not used to interpret this result as normal/abnormal. ALKALINE PHOSPHATASE (test code = 2203) 98 U/L 40-142 AST (test code = 2218) 21 U/L 9-40 ALT (test code = 221) 18 U/L 5-40 LIPID [id number] 04:20:04* Test Item Value Reference Range Interpretation Comme nts CHOLESTEROL (test code = 2210) 178 MG/DL <200 TRIGLYCERIDES (test code = 2232) 121 MG/DL <150 HDL CHOLESTEROL (test code = 2220) 47 MG/DL >39 CALC LDL CHOL (test code = 223) 108 MG/DL <100 H NOTE: CALCULATED LDL IS BASED ON DANILO-MCINTYRE METHOD WHICHINCLUDES ADJUSTABLE TRIGLYCERIDE:VLDL CHOLESTEROL RATIO.THIS FACTOR VARIES BY MEASURED TRIGLYCERIDE AND NON-HDLCHOLESTEROL CONCENTRATIONS WITH INCREASED CALCULATED LDL SEENIN HIGHER TRIGLYCERIDE OR LOWER NON-HDL SPECIMENS. FOR MOREINFORMATION, SEE CLIENT ANNOUNCEMENT AT [email or web address] RISK RATIO LDL/HDL (test code = 2238) 2.30 RATIO <3.22 [facility] has i mportant pathology staff changes effective 06/28/2022. New pathology staff will provide uninterrupted, excellent patient care and clinical consultation. See URL: [email or web address]. UNLESS OTHERWISE INDICATED, ALL TESTING PERFORMED AT [facility] [address] [place] [address] CLIA: [id number], CAP: [id number] HEMOGLOBIN [id number] 03:47:29* Test Item Value Reference Range Interpretation Comme nts HEMOGLOBIN A1c (test code = 64163) 6.3 % 4.2-5.6 H LIPID [id number] 00:00:00* Test Item Value Reference Range Interpretation Comme nts CHOLESTEROL (test code = 2210) 178 MG/DL TRIGLYCERIDES (test code = 2232) 121 MG/DL HDL CHOLESTEROL (test code = 2220) 47 MG/DL CALC LDL CHOL (test code = 2237) 108 MG/DL RISK RATIO LDL/HDL (test cod e = 2238) 2.30 RATIO Armaan SmithHEMOGLOBIN [id number] 00:00:00* Test Item Value Reference Range Interpretation Comme nts HEMOGLOBIN A1c (test code = 77561) 6.3 % Armaan SmithCOMPREHENSIVE METABOLIC [id number] 00:00:00* Test Item Value Reference Range Interpretation Comme nts GLUCOSE (test code = 2217) 113 MG/DL BUN (test code = 2208) 15 MG/DL CREATININE (test code = 2214) 0.61 MG/DL eGFR (2020 CKD-EPI) (test co de = 67506) 97 ML/MIN/1.73 CALC BUN/CREAT (test code = 2235) 25 RATIO SODIUM (test code = 2231) 142 MEQ/L POTASSIUM (test code = 2228) 4.6 MEQ/L CHLORIDE (test code = 2215) 106 MEQ/L CARBON DIOXIDE (test code = 2206) 26 MEQ/L CALCIUM (test code = 2209) 9.4 MG/DL PROTEIN, TOTAL (test code = 2229) 7.3 G/DL ALBUMIN (test code = 2201) 4.2 G/DL CALC GLOBULIN (test code = 2240) 3.1 G/DL CALC A/G RATIO (test code = 2234) 1.4 RATIO BILIRUBIN, TOTAL (test code = 2207) 0.4 MG/DL ALKALINE PHOSPHATASE (test code = 2204) 98 U/L AST (test code = 2218) 21 U/L ALT (test code = 2219) 18 U/L Armaan SmithLIPID [id number] 00:00:00* Test Item Value Reference Range Interpretation Comme nts CHOLESTEROL (test code = 2210) 178 MG/DL TRIGLYCERIDES (test code = 2232) 121 MG/DL HDL CHOLESTEROL (test code = 2220) 47 MG/DL CALC LDL CHOL (test code = 2237) 108 MG/DL RISK RATIO LDL/HDL (test cod e = 2238) 2.30 RATIO Armaan SmithHEMOGLOBIN [id number] 00:00:00* Test Item Value Reference Range Interpretation Comme elías HEMOGLOBIN A1c (test code = 16442) 6.3 % Armaan SmithCOMPREHENSIVE METABOLIC [id number] 00:00:00* Test Item Value Reference Range Interpretation Comme nts GLUCOSE (test code = 2217) 113 MG/DL BUN (test code = 2208) 15 MG/DL CREATININE (test code = 2214) 0.61 MG/DL eGFR (2020 CKD-EPI) (test co de = 17729) 97 ML/MIN/1.73 CALC BUN/CREAT (test code = 2235) 25 RATIO SODIUM (test code = 2231) 142 MEQ/L POTASSIUM (test code = 2228) 4.6 MEQ/L CHLORIDE (test code = 2215) 106 MEQ/L CARBON DIOXIDE (test code = 2206) 26 MEQ/L CALCIUM (test code = 2209) 9.4 MG/DL PROTEIN, TOTAL (test code = 2229) 7.3 G/DL ALBUMIN (test code = 2201) 4.2 G/DL CALC GLOBULIN (test code = 2240) 3.1 G/DL CALC A/G RATIO (test code = 2234) 1.4 RATIO BILIRUBIN, TOTAL (test code = 2207) 0.4 MG/DL ALKALINE PHOSPHATASE (test code = 2204) 98 U/L AST (test code = 2218) 21 U/L ALT (test code = 2219) 18 U/L Armaan SmithHEMOGLOBIN [id number] 05:49:50* Test Item Value Reference Range Interpretation Comme elías HEMOGLOBIN A1c (test code = 06750) 6.1 % 4.2-5.6 H UNLESS OTHERWISE INDICATED, [facility] [address] [place] [id number] [employer] ANALYST: RADHA ROSE M.D. CLIA NUMBER [id number] [facility] [place]. [id number] HEMOGLOBIN [id number] 00:00:00* Test Item Value Reference Range Interpretation Comme elías HEMOGLOBIN A1c (test code = 11687) 6.1 % Armaan SmithHEMOGLOBIN [id number] 00:00:00* Test Item Value Reference Range Interpretation Comme elías HEMOGLOBIN A1c (test code = 03410) 6.1 % Armaan SmithCOMPREHENSIVE METABOLIC [id number] 00:00:00* Test Item Value Reference Range Interpretation Comme nts GLUCOSE (test code = 2217) 110 MG/DL BUN (test code = 2208) 16 MG/DL CREATININE (test code = 2214) 0.60 MG/DL eGFR AMER. (test cod e = 05734) 109 ML/MIN/1.73 eGFR NON- AMER. (test code = 59429) 94 ML/MIN/1.73 CALC BUN/CREAT (test code = 2235) 27 RATIO SODIUM (test code = 2231) 144 MEQ/L POTASSIUM (test code = 2228) 4.9 MEQ/L CHLORIDE (test code = 2215) 106 MEQ/L CARBON DIOXIDE (test code = 2206) 26 MEQ/L CALCIUM (test code = 2209) 9.4 MG/DL PROTEIN, TOTAL (test code = 2229) 7.4 G/DL ALBUMIN (test code = 2201) 4.3 G/DL CALC GLOBULIN (test code = 2240) 3.1 G/DL CALC A/G RATIO (test code = 2234) 1.4 RATIO BILIRUBIN, TOTAL (test code = 2207) 0.3 MG/DL ALKALINE PHOSPHATASE (test code = 2204) 128 U/L AST (test code = 2218) 37 U/L ALT (test code = 2219) 41 U/L Armaan SmithHEMOGLOBIN [id number] 00:00:00* Test Item Value Reference Range Interpretation Comme elías HEMOGLOBIN A1c (test code = 18574) 6.3 % Armaan SmithLIPID [id number] 00:00:00* Test Item Value Reference Range Interpretation Comme nts CHOLESTEROL (test code = 2210) 183 MG/DL TRIGLYCERIDES (test code = 2232) 190 MG/DL HDL CHOLESTEROL (test code = 2220) 40 MG/DL CALC LDL CHOL (test code = 2237) 112 MG/DL RISK RATIO LDL/HDL (test cod e = 2238) 2.80 RATIO Armaan SmithCOMPREHENSIVE METABOLIC [id number] 00:00:00* Test Item Value Reference Range Interpretation Comme nts GLUCOSE (test code = 2217) 110 MG/DL BUN (test code = 2208) 16 MG/DL CREATININE (test code = 2214) 0.60 MG/DL eGFR AMER. (test cod e = 16622) 109 ML/MIN/1.73 eGFR NON- AMER. (test code = 93241) 94 ML/MIN/1.73 CALC BUN/CREAT (test code = 2235) 27 RATIO SODIUM (test code = 2231) 144 MEQ/L POTASSIUM (test code = 2228) 4.9 MEQ/L CHLORIDE (test code = 2215) 106 MEQ/L CARBON DIOXIDE (test code = 2206) 26 MEQ/L CALCIUM (test code = 2209) 9.4 MG/DL PROTEIN, TOTAL (test code = 2229) 7.4 G/DL ALBUMIN (test code = 2201) 4.3 G/DL CALC GLOBULIN (test code = 2240) 3.1 G/DL CALC A/G RATIO (test code = 2234) 1.4 RATIO BILIRUBIN, TOTAL (test code = 2207) 0.3 MG/DL ALKALINE PHOSPHATASE (test code = 2204) 128 U/L AST (test code = 2218) 37 U/L ALT (test code = 2219) 41 U/L Armaan SmithHEMOGLOBIN [id number] 00:00:00* Test Item Value Reference Range Interpretation Comme elías HEMOGLOBIN A1c (test code = 35972) 6.3 % Armaan SmithLIPID [id number] 00:00:00* Test Item Value Reference Range Interpretation Comme nts CHOLESTEROL (test code = 2210) 183 MG/DL TRIGLYCERIDES (test code = 2232) 190 MG/DL HDL CHOLESTEROL (test code = 2220) 40 MG/DL CALC LDL CHOL (test code = 2237) 112 MG/DL RISK RATIO LDL/HDL (test cod e = 2238) 2.80 RATIO Armaan [id number] 00:00:00* Test Item Value Reference Range Interpretation Comme nts FERRITIN (test code = 5) 10 NG/ML Armaan SmithCBC W/AUTO [id number] 00:00:00* Test Item Value Reference Range Interpretation Comme nts WBC (test code = 1001) 6.3 K/UL RBC (test code = 1002) 4.68 M/UL HEMOGLOBIN (test code = 1003) 11.5 G/DL HEMATOCRIT (test code = 1004) 37.1 % MCV (test code = 1005) 79.3 fL MCH (test code = 1006) 24.6 PG MCHC (test code = 1007) 31.0 G/DL RDW (test code = 1038) 22.9 % NEUTROPHILS (test code = 1008) 64.0 % LYMPHOCYTES (test code = 1010) 24.6 % MONOCYTES (test code = 1011) 5.6 % EOSINOPHILS (test code = 1012) 4.8 % BASOPHILS (test code = 1013) 0.5 % IMMATURE GRANULOCYTES (test code = 1036) 0.5 % NUCLEATED RBCS (test code = 1065) 0.0 /100WBC'S PLATELET COUNT (test code = 1015) 271 K/UL ABSOLUTE NEUTROPHILS (test c ode = 1066) 4.01 K/UL ABSOLUTE LYMPHOCYTES (test c ode = 1067) 1.54 K/UL ABSOLUTE MONOCYTES (test cod e = 1068) 0.35 K/UL ABSOLUTE EOSINOPHILS (test c ode = 1040) 0.30 K/UL ABSOLUTE BASOPHILS (test cod e = 1069) 0.03 K/UL ABS IMMATURE GRANULOCYTES (t est code = 1020) 0.03 K/UL ABS NUCLEATED RBCS (test cod e = 79173) 0.00 K/UL Armaan SmithVITAMIN [id number] 00:00:00* Test Item Value Reference Range Interpretation Comme nts VITAMIN B-12 (test code = 2840) 543 PG/ML Armaan SmithVITAMIN D, 25 [id number] 00:00:00* Test Item Value Reference Range Interpretation Comme nts VITAMIN D, 25 OH (test code = 4958) 32 NG/ML Armaan SmithIRON, [id number] 00:00:00* Test Item Value Reference Range Interpretation Comme nts IRON, SERUM (test code = 2222) 34 UG/DL Armaan [id number] 00:00:00* Test Item Value Reference Range Interpretation Comme nts TRANSFERRIN (test code = 4936) 271 MG/DL Armaan [id number] 00:00:00* Test Item Value Reference Range Interpretation Comme nts FERRITIN (test code = 2075) 10 NG/ML Armaan SmithCBC W/AUTO [id number] 00:00:00* Test Item Value Reference Range Interpretation Comme nts WBC (test code = 1001) 6.3 K/UL RBC (test code = 1002) 4.68 M/UL HEMOGLOBIN (test code = 1003) 11.5 G/DL HEMATOCRIT (test code = 1004) 37.1 % MCV (test code = 1005) 79.3 fL MCH (test code = 1006) 24.6 PG MCHC (test code = 1007) 31.0 G/DL RDW (test code = 1038) 22.9 % NEUTROPHILS (test code = 1008) 64.0 % LYMPHOCYTES (test code = 1010) 24.6 % MONOCYTES (test code = 1011) 5.6 % EOSINOPHILS (test code = 1012) 4.8 % BASOPHILS (test code = 1013) 0.5 % IMMATURE GRANULOCYTES (test code = 1036) 0.5 % NUCLEATED RBCS (test code = 1065) 0.0 /100WBC'S PLATELET COUNT (test code = 1015) 271 K/UL ABSOLUTE NEUTROPHILS (test c ode = 1066) 4.01 K/UL ABSOLUTE LYMPHOCYTES (test c ode = 1067) 1.54 K/UL ABSOLUTE MONOCYTES (test cod e = 1068) 0.35 K/UL ABSOLUTE EOSINOPHILS (test c ode = 1040) 0.30 K/UL ABSOLUTE BASOPHILS (test cod e = 1069) 0.03 K/UL ABS IMMATURE GRANULOCYTES (t est code = 1020) 0.03 K/UL ABS NUCLEATED RBCS (test cod e = 43358) 0.00 K/UL Armaan SmithVITAMIN [id number] 00:00:00* Test Item Value Reference Range Interpretation Comme nts VITAMIN B-12 (test code = 2840) 543 PG/ML Armaan SmithVITAMIN D, 25 [id number] 00:00:00* Test Item Value Reference Range Interpretation Comme nts VITAMIN D, 25 OH (test code = 4958) 32 NG/ML Armaan SmithIRON, [id number] 00:00:00* Test Item Value Reference Range Interpretation Comme elías IRON, SERUM (test code = 2222) 34 UG/DL Armaan [id number] 00:00:00* Test Item Value Reference Range Interpretation Comme nts TRANSFERRIN (test code = 4936) 271 MG/DL Armaan SmithCOMPREHENSIVE METABOLIC [id number] 00:00:00* Test Item Value Reference Range Interpretation Comme nts GLUCOSE (test code = 2217) 118 MG/DL BUN (test code = 2208) 13 MG/DL CREATININE (test code = 2214) 0.62 MG/DL eGFR AMER. (test cod e = 77711) 108 ML/MIN/1.73 eGFR NON- AMER. (test code = 59321) 93 ML/MIN/1.73 CALC BUN/CREAT (test code = 2235) 21 RATIO SODIUM (test code = 2231) 139 MEQ/L POTASSIUM (test code = 2228) 4.8 MEQ/L CHLORIDE (test code = 2215) 104 MEQ/L CARBON DIOXIDE (test code = 2206) 27 MEQ/L CALCIUM (test code = 2209) 9.0 MG/DL PROTEIN, TOTAL (test code = 2229) 7.4 G/DL ALBUMIN (test code = 2201) 4.2 G/DL CALC GLOBULIN (test code = 2240) 3.2 G/DL CALC A/G RATIO (test code = 2234) 1.3 RATIO BILIRUBIN, TOTAL (test code = 2207) 0.4 MG/DL ALKALINE PHOSPHATASE (test code = 2204) 96 U/L AST (test code = 2218) 25 U/L ALT (test code = 2219) 17 U/L Armaan SmithLIPID [id number] 00:00:00* Test Item Value Reference Range Interpretation Comme nts CHOLESTEROL (test code = 2210) 172 MG/DL TRIGLYCERIDES (test code = 2232) 149 MG/DL HDL CHOLESTEROL (test code = 2220) 48 MG/DL CALC LDL CHOL (test code = 2237) 99 MG/DL RISK RATIO LDL/HDL (test cod e = 2238) 2.06 RATIO Armaan SmithHEMOGLOBIN [id number] 00:00:00* Test Item Value Reference Range Interpretation Comme nts HEMOGLOBIN A1c (test code = 53284) 6.3 % Armaan SmithCBC W/AUTO [id number] 00:00:00* Test Item Value Reference Range Interpretation Comme nts WBC (test code = 1001) 6.0 K/UL RBC (test code = 1002) 4.33 M/UL HEMOGLOBIN (test code = 1003) 8.9 G/DL HEMATOCRIT (test code = 1004) 30.4 % MCV (test code = 1005) 70.2 fL MCH (test code = 1006) 20.6 PG MCHC (test code = 1007) 29.3 G/DL RDW (test code = 1038) 16.5 % NEUTROPHILS (test code = 1008) 63.3 % LYMPHOCYTES (test code = 1010) 27.7 % MONOCYTES (test code = 1011) 6.5 % EOSINOPHILS (test code = 1012) 1.8 % BASOPHILS (test code = 1013) 0.7 % PLATELET COUNT (test code = 1015) 296 K/UL Armaan SmithCOMPREHENSIVE METABOLIC [id number] 00:00:00* Test Item Value Reference Range Interpretation Comme nts GLUCOSE (test code = 2217) 118 MG/DL BUN (test code = 2208) 13 MG/DL CREATININE (test code = 2214) 0.62 MG/DL eGFR AMER. (test cod e = 73024) 108 ML/MIN/1.73 eGFR NON- AMER. (test code = 87436) 93 ML/MIN/1.73 CALC BUN/CREAT (test code = 2235) 21 RATIO SODIUM (test code = 2231) 139 MEQ/L POTASSIUM (test code = 2228) 4.8 MEQ/L CHLORIDE (test code = 2215) 104 MEQ/L CARBON DIOXIDE (test code = 2206) 27 MEQ/L CALCIUM (test code = 2209) 9.0 MG/DL PROTEIN, TOTAL (test code = 2229) 7.4 G/DL ALBUMIN (test code = 2201) 4.2 G/DL CALC GLOBULIN (test code = 2240) 3.2 G/DL CALC A/G RATIO (test code = 2234) 1.3 RATIO BILIRUBIN, TOTAL (test code = 2207) 0.4 MG/DL ALKALINE PHOSPHATASE (test code = 2204) 96 U/L AST (test code = 2218) 25 U/L ALT (test code = 2219) 17 U/L Armaan SmithLIPID [id number] 00:00:00* Test Item Value Reference Range Interpretation Comme nts CHOLESTEROL (test code = 2210) 172 MG/DL TRIGLYCERIDES (test code = 2232) 149 MG/DL HDL CHOLESTEROL (test code = 2220) 48 MG/DL CALC LDL CHOL (test code = 2237) 99 MG/DL RISK RATIO LDL/HDL (test cod e = 2238) 2.06 RATIO Armaan SmithHEMOGLOBIN [id number] 00:00:00* Test Item Value Reference Range Interpretation Comme elías HEMOGLOBIN A1c (test code = 27475) 6.3 % Armaan SmithCBC W/AUTO [id number] 00:00:00* Test Item Value Reference Range Interpretation Comme nts WBC (test code = 1001) 6.0 K/UL RBC (test code = 1002) 4.33 M/UL HEMOGLOBIN (test code = 1003) 8.9 G/DL HEMATOCRIT (test code = 1004) 30.4 % MCV (test code = 1005) 70.2 fL MCH (test code = 1006) 20.6 PG MCHC (test code = 1007) 29.3 G/DL RDW (test code = 1038) 16.5 % NEUTROPHILS (test code = 1008) 63.3 % LYMPHOCYTES (test code = 1010) 27.7 % MONOCYTES (test code = 1011) 6.5 % EOSINOPHILS (test code = 1012) 1.8 % BASOPHILS (test code = 1013) 0.7 % PLATELET COUNT (test code = 1015) 296 K/UL Armaan SmithCOMPREHENSIVE METABOLIC [id number] 00:00:00* Test Item Value Reference Range Interpretation Comme nts GLUCOSE (test code = 2217) 99 MG/DL BUN (test code = 2208) 18 MG/DL CREATININE (test code = 2214) 0.54 MG/DL eGFR AMER. (test cod e = 71186) 114 ML/MIN/1.73 eGFR NON- AMER. (test code = 63552) 98 ML/MIN/1.73 CALC BUN/CREAT (test code = 2235) 33 RATIO SODIUM (test code = 2231) 138 MEQ/L POTASSIUM (test code = 2228) 4.5 MEQ/L CHLORIDE (test code = 2215) 105 MEQ/L CARBON DIOXIDE (test code = 2206) 25 MEQ/L CALCIUM (test code = 2209) 8.9 MG/DL PROTEIN, TOTAL (test code = 2229) 7.4 G/DL ALBUMIN (test code = 2201) 3.9 G/DL CALC GLOBULIN (test code = 2240) 3.5 G/DL CALC A/G RATIO (test code = 2234) 1.1 RATIO BILIRUBIN, TOTAL (test code = 2207) 0.3 MG/DL ALKALINE PHOSPHATASE (test code = 2204) 127 U/L AST (test code = 2218) 44 U/L ALT (test code = 2219) 39 U/L Armaan Hutchison BeckleyHEMOGLOBIN [id number] 00:00:00* Test Item Value Reference Range Interpretation Comme [facility] HEMOGLOBIN A1c (test code = 85851) 6.1 % Armaan Hutchison BeckleyCOMPREHENSIVE METABOLIC [id number] 00:00:00* Test Item Value Reference Range Interpretation Comme nts GLUCOSE (test code = 2217) 99 MG/DL BUN (test code = 2208) 18 MG/DL CREATININE (test code = 2214) 0.54 MG/DL eGFR AMER. (test cod e = 76950) 114 ML/MIN/1.73 eGFR NON- AMER. (test code = 11765) 98 ML/MIN/1.73 CALC BUN/CREAT (test code = 2235) 33 RATIO SODIUM (test code = 2231) 138 MEQ/L POTASSIUM (test code = 2228) 4.5 MEQ/L CHLORIDE (test code = 2215) 105 MEQ/L CARBON DIOXIDE (test code = 2206) 25 MEQ/L CALCIUM (test code = 2209) 8.9 MG/DL PROTEIN, TOTAL (test code = 2229) 7.4 G/DL ALBUMIN (test code = 2201) 3.9 G/DL CALC GLOBULIN (test code = 2240) 3.5 G/DL CALC A/G RATIO (test code = 2234) 1.1 RATIO BILIRUBIN, TOTAL (test code = 2207) 0.3 MG/DL ALKALINE PHOSPHATASE (test code = 2204) 127 U/L AST (test code = 2218) 44 U/L ALT (test code = 2219) 39 U/L Armaan SmithHEMOGLOBIN [id number] 00:00:00* Test Item Value Reference Range Interpretation Comme nts HEMOGLOBIN A1c (test code = 36236) 6.1 % Armaan SmithCOMPREHENSIVE METABOLIC [id number] 00:00:00* Test Item Value Reference Range Interpretation Comme nts GLUCOSE (test code = 2217) 93 MG/DL BUN (test code = 2208) 15 MG/DL CREATININE (test code = 2214) 0.59 MG/DL eGFR AMER. (test cod e = 34935) 111 ML/MIN/1.73 eGFR NON- AMER. (test code = 47441) 96 ML/MIN/1.73 CALC BUN/CREAT (test code = 2235) 25 RATIO SODIUM (test code = 2231) 139 MEQ/L POTASSIUM (test code = 2228) 5.0 MEQ/L CHLORIDE (test code = 2215) 105 MEQ/L CARBON DIOXIDE (test code = 2206) 27 MEQ/L CALCIUM (test code = 2209) 9.0 MG/DL PROTEIN, TOTAL (test code = 2229) 7.8 G/DL ALBUMIN (test code = 2201) 3.9 G/DL CALC GLOBULIN (test code = 2240) 3.9 G/DL CALC A/G RATIO (test code = 2234) 1.0 RATIO BILIRUBIN, TOTAL (test code = 2207) 0.3 MG/DL ALKALINE PHOSPHATASE (test code = 2204) 125 U/L AST (test code = 2218) 40 U/L ALT (test code = 2219) 28 U/L Armaan Hutchison AustinCOMPREHENSIVE METABOLIC [id number] 00:00:00* Test Item Value Reference Range Interpretation Comme nts GLUCOSE (test code = 2217) 93 MG/DL BUN (test code = 2208) 15 MG/DL CREATININE (test code = 2214) 0.59 MG/DL eGFR AMER. (test cod e = 18710) 111 ML/MIN/1.73 eGFR NON- AMER. (test code = 01004) 96 ML/MIN/1.73 CALC BUN/CREAT (test code = 2235) 25 RATIO SODIUM (test code = 2231) 139 MEQ/L POTASSIUM (test code = 2228) 5.0 MEQ/L CHLORIDE (test code = 2215) 105 MEQ/L CARBON DIOXIDE (test code = 2206) 27 MEQ/L CALCIUM (test code = 2209) 9.0 MG/DL PROTEIN, TOTAL (test code = 2229) 7.8 G/DL ALBUMIN (test code = 2201) 3.9 G/DL CALC GLOBULIN (test code = 2240) 3.9 G/DL CALC A/G RATIO (test code = 2234) 1.0 RATIO BILIRUBIN, TOTAL (test code = 2207) 0.3 MG/DL ALKALINE PHOSPHATASE (test code = 2204) 125 U/L AST (test code = 2218) 40 U/L ALT (test code = 2219) 28 U/L Armaan Hutchison BeckleyLIPID [id number] 00:00:00* Test Item Value Reference Range Interpretation Comme nts CHOLESTEROL (test code = 2210) 154 MG/DL TRIGLYCERIDES (test code = 2232) 165 MG/DL HDL CHOLESTEROL (test code = 2220) 57 MG/DL CALC LDL CHOL (test code = 2237) 73 MG/DL RISK RATIO LDL/HDL (test cod e = 2238) 1.28 RATIO Armaan SmithCOMPREHENSIVE METABOLIC [id number] 00:00:00* Test Item Value Reference Range Interpretation Comme nts GLUCOSE (test code = 2217) 95 MG/DL BUN (test code = 2208) 14 MG/DL CREATININE (test code = 2214) 0.63 MG/DL eGFR AMER. (test cod e = 18596) 108 ML/MIN/1.73 eGFR NON- AMER. (test code = 11814) 93 ML/MIN/1.73 CALC BUN/CREAT (test code = 2235) 22 RATIO SODIUM (test code = 2231) 140 MEQ/L POTASSIUM (test code = 2228) 4.7 MEQ/L CHLORIDE (test code = 2215) 105 MEQ/L CARBON DIOXIDE (test code = 2206) 25 MEQ/L CALCIUM (test code = 2209) 9.0 MG/DL PROTEIN, TOTAL (test code = 2229) 7.8 G/DL ALBUMIN (test code = 2201) 3.9 G/DL CALC GLOBULIN (test code = 2240) 3.9 G/DL CALC A/G RATIO (test code = 2234) 1.0 RATIO BILIRUBIN, TOTAL (test code = 2207) 0.3 MG/DL ALKALINE PHOSPHATASE (test code = 2204) 215 U/L AST (test code = 2218) 88 U/L ALT (test code = 2219) 73 U/L Armaan Hutchison AustinLIPID [id number] 00:00:00* Test Item Value Reference Range Interpretation Comme nts CHOLESTEROL (test code = 2210) 154 MG/DL TRIGLYCERIDES (test code = 2232) 165 MG/DL HDL CHOLESTEROL (test code = 2220) 57 MG/DL CALC LDL CHOL (test code = 2237) 73 MG/DL RISK RATIO LDL/HDL (test cod e = 2238) 1.28 RATIO Armaan SmithCOMPREHENSIVE METABOLIC [id number] 00:00:00* Test Item Value Reference Range Interpretation Comme nts GLUCOSE (test code = 2217) 95 MG/DL BUN (test code = 2208) 14 MG/DL CREATININE (test code = 2214) 0.63 MG/DL eGFR AMER. (test cod e = 71591) 108 ML/MIN/1.73 eGFR NON- AMER. (test code = 84470) 93 ML/MIN/1.73 CALC BUN/CREAT (test code = 2235) 22 RATIO SODIUM (test code = 2231) 140 MEQ/L POTASSIUM (test code = 2228) 4.7 MEQ/L CHLORIDE (test code = 2215) 105 MEQ/L CARBON DIOXIDE (test code = 2206) 25 MEQ/L CALCIUM (test code = 2209) 9.0 MG/DL PROTEIN, TOTAL (test code = 2229) 7.8 G/DL ALBUMIN (test code = 2201) 3.9 G/DL CALC GLOBULIN (test code = 2240) 3.9 G/DL CALC A/G RATIO (test code = 2234) 1.0 RATIO BILIRUBIN, TOTAL (test code = 2207) 0.3 MG/DL ALKALINE PHOSPHATASE (test code = 2204) 215 U/L AST (test code = 2218) 88 U/L ALT (test code = 2219) 73 U/L Armaan Hutchison AustinSCR MAMM BILATERAL KATIUSKA CAD [id number] 13:59:59- SCR MAMM BILATERAL KATIUSKA CAD DIGITALBILATERAL FIRST EVER DIGITAL SCREENING MAMMOGRAM 3D/2D WITH CAD: 09/27/2018CLINICAL: Asymptomatic. Digital breast tomosynthesis was performed in addition to routine CC and MLO views. Current mammographic images were evaluated by either a LetsCram M-Vu or a CogniK ImageRoyaltySharecker CAD (computer aided detection system). No prior exams were available for comparison. There are scattered fibroglandular tissues in both breasts. There are benign vascular calcifications in both breasts. No suspicious mass, architectural distortion, malignant type calcification, or lymphnode abnormality detected. IMPRESSION: BENIGNThere is no mammographic evidence of malignancy. Resume annual screening mammography in one year. Heather Eller M.D. cc/penrad:09/30/2018 13:59:59 Entry: cc- 09/30/2018 14:53:59Imaging Technologist: Velma Esposito MM, [facility] Mammographyletter sent: BIRADS 1-2 Normal Mammogram BI-RADS: 2 BenignSCR MAMM BILATERAL KATIUSKA CAD [id number] 13:59:59 Name: Felicia : 1955 Sex: F - SCR MAMM BILATERAL KATIUSKA CAD DIGITALBILATERAL FIRST EVER DIGITAL SCREENING MAMMOGRAM 3D/2D WITH CAD: 09/27/2018CLINICAL: Asymptomatic. Digital breast tomosynthesis was performed in addition to routine CC and MLO views. Current mammographic images were evaluated by either a LetsCram M-Vu or a Cogn[employer]K ImageRoyaltySharecker CAD (computer aided detection system). No prior exams were available for comparison. There are scattered fibroglandular tissues in both breasts. There are benign vascular calcifications in both breasts. No suspicious mass, architectural distortion, malignant type calcification, or lymph node abnormality detected. IMPRESSION: BENIGNThere is no mammographic evidence of malignancy. Resume annual screening mammography in one year. Heather Eller M.D. cc/penrad:09/30/2018 13:59:59 Entry: cc - 09/30/2018 14:53:59Imaging Technologist: Velma Esposito MM, [facility] Mammographyletter sent: BIRADS 1-2 Normal Mammogram BI-RADS: 2 BenignLIPID PANEL 2018-09-10 00:00:00* Test Item Value Reference Range Interpretation Comme nts CHOLESTEROL (test code = 2210) 169 MG/DL TRIGLYCERIDES (test code = 2232) 159 MG/DL HDL CHOLESTEROL (test code = 2220) 50 MG/DL CALC LDL CHOL (test code = 2237) 87 MG/DL RISK RATIO LDL/HDL (test cod e = 2238) 1.74 RATIO Armaan Hutchison AustinLIPID [id number] 00:00:00* Test Item Value Reference Range Interpretation Comme nts CHOLESTEROL (test code = 2210) 169 MG/DL TRIGLYCERIDES (test code = 2232) 159 MG/DL HDL CHOLESTEROL (test code = 2220) 50 MG/DL CALC LDL CHOL (test code = 2237) 87 MG/DL RISK RATIO LDL/HDL (test cod e = 2238) 1.74 RATIO Armaan Hutchison AustinLIPID [id number] 00:00:00* Test Item Value Reference Range Interpretation Comme nts CHOLESTEROL (test code = 2210) 221 MG/DL TRIGLYCERIDES (test code = 2232) 200 MG/DL HDL CHOLESTEROL (test code = 2220) 39 MG/DL CALC LDL CHOL (test code = 2237) 142 MG/DL RISK RATIO LDL/HDL (test cod e = 2238) 3.64 RATIO Armaan Hutchison AustinLIPID [id number] 00:00:00* Test Item Value Reference Range Interpretation Comme nts CHOLESTEROL (test code = 2210) 221 MG/DL TRIGLYCERIDES (test code = 2232) 200 MG/DL HDL CHOLESTEROL (test code = 2220) 39 MG/DL CALC LDL CHOL (test code = 2237) 142 MG/DL RISK RATIO LDL/HDL (test cod e = 2238) 3.64 RATIO Armaan Hutchison [employer] METABOLIC [id number] 00:00:00* Test Item Value Reference Range Interpretation Comme nts GLUCOSE (test code = 2217) 97 MG/DL BUN (test code = 2208) 17 MG/DL CREATININE (test code = 2214) 0.59 MG/DL eGFR AMER. (test cod e = 58460) 111 ML/MIN/1.73 eGFR NON- AMER. (test code = 34063) 96 ML/MIN/1.73 SODIUM (test code = 2231) 138 MEQ/L POTASSIUM (test code = 2228) 4.4 MEQ/L CHLORIDE (test code = 2215) 101 MEQ/L CARBON DIOXIDE (test code = 2206) 27 MEQ/L CALCIUM (test code = 2209) 9.3 MG/DL Armaan Hutchison [employer] METABOLIC [id number] 00:00:00* Test Item Value Reference Range Interpretation Comme nts GLUCOSE (test code = 2217) 97 MG/DL BUN (test code = 2208) 17 MG/DL CREATININE (test code = 2214) 0.59 MG/DL eGFR AMER. (test cod e = 69978) 111 ML/MIN/1.73 eGFR NON- AMER. (test code = 75264) 96 ML/MIN/1.73 SODIUM (test code = 2231) 138 MEQ/L POTASSIUM (test code = 2228) 4.4 MEQ/L CHLORIDE (test code = 2215) 101 MEQ/L CARBON DIOXIDE (test code = 2206) 27 MEQ/L CALCIUM (test code = 2209) 9.3 MG/DL [facility]maan Hutchison [facility] METABOLIC [id number] 00:00:00* Test Item Value Reference Range Interpretation Comme nts GLUCOSE (test code = 2217) 101 MG/DL BUN (test code = 2208) 15 MG/DL CREATININE (test code = 2214) 0.51 MG/DL eGFR AMER. (test cod e = 66237) 117 ML/MIN/1.73 eGFR NON- AMER. (test code = 40603) 101 ML/MIN/1.73 CALC BUN/CREAT (test code = 2235) 29 RATIO SODIUM (test code = 2231) 142 MEQ/L POTASSIUM (test code = 2228) 4.3 MEQ/L CHLORIDE (test code = 2215) 104 MEQ/L CARBON DIOXIDE (test code = 2206) 26 MEQ/L CALCIUM (test code = 2209) 9.5 MG/DL PROTEIN, TOTAL (test code = 2229) 7.3 G/DL ALBUMIN (test code = 2201) 4.3 G/DL CALC GLOBULIN (test code = 2240) 3.0 G/DL CALC A/G RATIO (test code = 2234) 1.4 RATIO BILIRUBIN, TOTAL (test code = 2207) 0.3 MG/DL ALKALINE PHOSPHATASE (test code = 2204) 70 U/L AST (test code = 2218) 20 U/L ALT (test code = 2219) 16 U/L Armaan SmithHEMOGLOBIN [id number] 00:00:00* Test Item Value Reference Range Interpretation Comme nts HEMOGLOBIN A1c (test code = 09796) 6.0 % Armaan SmithLIPID [id number] 00:00:00* Test Item Value Reference Range Interpretation Comme nts CHOLESTEROL (test code = 2210) 262 MG/DL TRIGLYCERIDES (test code = 2232) 236 MG/DL HDL CHOLESTEROL (test code = 2220) 42 MG/DL CALC LDL CHOL (test code = 2237) 173 MG/DL RISK RATIO LDL/HDL (test cod e = 2238) 4.11 RATIO Armaan SmithCOMPREHENSIVE METABOLIC [id number] 00:00:00* Test Item Value Reference Range Interpretation Comme nts GLUCOSE (test code = 2217) 101 MG/DL BUN (test code = 2208) 15 MG/DL CREATININE (test code = 2214) 0.51 MG/DL eGFR AMER. (test cod e = 75438) 117 ML/MIN/1.73 eGFR NON- AMER. (test code = 37657) 101 ML/MIN/1.73 CALC BUN/CREAT (test code = 2235) 29 RATIO SODIUM (test code = 2231) 142 MEQ/L POTASSIUM (test code = 2228) 4.3 MEQ/L CHLORIDE (test code = 2215) 104 MEQ/L CARBON DIOXIDE (test code = 2206) 26 MEQ/L CALCIUM (test code = 2209) 9.5 MG/DL PROTEIN, TOTAL (test code = 2229) 7.3 G/DL ALBUMIN (test code = 2201) 4.3 G/DL CALC GLOBULIN (test code = 2240) 3.0 G/DL CALC A/G RATIO (test code = 2234) 1.4 RATIO BILIRUBIN, TOTAL (test code = 2207) 0.3 MG/DL ALKALINE PHOSPHATASE (test code = 2204) 70 U/L AST (test code = 2218) 20 U/L ALT (test code = 2219) 16 U/L Armaan SmithHEMOGLOBIN [id number] 00:00:00* Test Item Value Reference Range Interpretation Comme nts HEMOGLOBIN A1c (test code = 78190) 6.0 % Armaan SmithLIPID [id number] 00:00:00* Test Item Value Reference Range Interpretation Comme nts CHOLESTEROL (test code = 2210) 262 MG/DL TRIGLYCERIDES (test code = 2232) 236 MG/DL HDL CHOLESTEROL (test code = 2220) 42 MG/DL CALC LDL CHOL (test code = 2237) 173 MG/DL RISK RATIO LDL/HDL (test cod e = 2238) 4.11 RATIO Armaan SmithCOMPREHENSIVE METABOLIC [id number] 00:00:00* Test Item Value Reference Range Interpretation Comme nts GLUCOSE (test code = 2217) 111 MG/DL BUN (test code = 2208) 14 MG/DL CREATININE (test code = 2214) 0.48 MG/DL eGFR AMER. (test cod e = 89918) 121 ML/MIN/1.73 eGFR NON- AMER. (test code = 07863) 104 ML/MIN/1.73 CALC BUN/CREAT (test code = 2235) 29 RATIO SODIUM (test code = 2231) 141 MEQ/L POTASSIUM (test code = 2228) 5.0 MEQ/L CHLORIDE (test code = 2215) 102 MEQ/L CARBON DIOXIDE (test code = 2206) 23 MEQ/L CALCIUM (test code = 2209) 8.8 MG/DL PROTEIN, TOTAL (test code = 2229) 7.3 G/DL ALBUMIN (test code = 2201) 4.1 G/DL CALC GLOBULIN (test code = 2240) 3.2 G/DL CALC A/G RATIO (test code = 2234) 1.3 RATIO BILIRUBIN, TOTAL (test code = 2207) 0.3 MG/DL ALKALINE PHOSPHATASE (test code = 2204) 74 U/L AST (test code = 2218) 24 U/L ALT (test code = 2219) 24 U/L Armaan SmithLIPID [id number] 00:00:00* Test Item Value Reference Range Interpretation Comme nts CHOLESTEROL (test code = 2210) 277 MG/DL TRIGLYCERIDES (test code = 2232) 237 MG/DL HDL CHOLESTEROL (test code = 2220) 42 MG/DL CALC LDL CHOL (test code = 2237) 188 MG/DL RISK RATIO LDL/HDL (test cod e = 2238) 4.47 RATIO Armaan SmithTHYROID II PROFILE (T3U, T4, T7, TSH)2016-06-10 00:00:00* Test Item Value Reference Range Interpretation Comme nts T3 UPTAKE (test code = 2817) 29.7 % T4 (THYROXINE) (test code = 2819) 8.2 UG/DL CALCULATED T7 (FTI) (test co de = 2820) 2.44 TSH (test code = 2821) 2.9 UIU/ML Armaan SmithHEMOGLOBIN [id number] 00:00:00* Test Item Value Reference Range Interpretation Comme nts HEMOGLOBIN A1c (test code = 05742) 5.9 % Armaan SmithCBC W/AUTO [id number] 00:00:00* Test Item Value Reference Range Interpretation Comme nts WBC (test code = 1001) 4.4 K/UL RBC (test code = 1002) 4.65 M/UL HEMOGLOBIN (test code = 1003) 13.0 G/DL HEMATOCRIT (test code = 1004) 39.8 % MCV (test code = 1005) 85.6 fL MCH (test code = 1006) 28.0 PG MCHC (test code = 1007) 32.7 G/DL RDW (test code = 1038) 14.0 % NEUTROPHILS (test code = 1008) 57.3 % LYMPHOCYTES (test code = 1010) 31.4 % MONOCYTES (test code = 1011) 8.3 % EOSINOPHILS (test code = 1012) 2.8 % BASOPHILS (test code = 1013) 0.2 % PLATELET COUNT (test code = 1015) 236 K/UL Armaan SmithCOMPREHENSIVE METABOLIC [id number] 00:00:00* Test Item Value Reference Range Interpretation Comme nts GLUCOSE (test code = 2217) 111 MG/DL BUN (test code = 2208) 14 MG/DL CREATININE (test code = 2214) 0.48 MG/DL eGFR AMER. (test cod e = 02900) 121 ML/MIN/1.73 eGFR NON- AMER. (test code = 84784) 104 ML/MIN/1.73 CALC BUN/CREAT (test code = 2235) 29 RATIO SODIUM (test code = 2231) 141 MEQ/L POTASSIUM (test code = 2228) 5.0 MEQ/L CHLORIDE (test code = 2215) 102 MEQ/L CARBON DIOXIDE (test code = 2206) 23 MEQ/L CALCIUM (test code = 2209) 8.8 MG/DL PROTEIN, TOTAL (test code = 2229) 7.3 G/DL ALBUMIN (test code = 2201) 4.1 G/DL CALC GLOBULIN (test code = 2240) 3.2 G/DL CALC A/G RATIO (test code = 2234) 1.3 RATIO BILIRUBIN, TOTAL (test code = 2207) 0.3 MG/DL ALKALINE PHOSPHATASE (test code = 2204) 74 U/L AST (test code = 2218) 24 U/L ALT (test code = 2219) 24 U/L Armaan SmithLIPID [id number] 00:00:00* Test Item Value Reference Range Interpretation Comme nts CHOLESTEROL (test code = 2210) 277 MG/DL TRIGLYCERIDES (test code = 2232) 237 MG/DL HDL CHOLESTEROL (test code = 2220) 42 MG/DL CALC LDL CHOL (test code = 2237) 188 MG/DL RISK RATIO LDL/HDL (test cod e = 2238) 4.47 RATIO Armaan SmithTHYROID II PROFILE (T3U, T4, T7, TSH)2016-06-10 00:00:00* Test Item Value Reference Range Interpretation Comme nts T3 UPTAKE (test code = 2817) 29.7 % T4 (THYROXINE) (test code = 2819) 8.2 UG/DL CALCULATED T7 (FTI) (test co de = 2820) 2.44 TSH (test code = 2821) 2.9 UIU/ML Armaan Kianna LuisHEMOGLOBIN [id number] 00:00:00* Test Item Value Reference Range Interpretation Comme nts HEMOGLOBIN A1c (test code = 30600) 5.9 % Armaan Kianna LuisCBC W/AUTO [id number] 00:00:00* Test Item Value Reference Range Interpretation Comme nts WBC (test code = 1001) 4.4 K/UL RBC (test code = 1002) 4.65 M/UL HEMOGLOBIN (test code = 1003) 13.0 G/DL HEMATOCRIT (test code = 1004) 39.8 % MCV (test code = 1005) 85.6 fL MCH (test code = 1006) 28.0 PG MCHC (test code = 1007) 32.7 G/DL RDW (test code = 1038) 14.0 % NEUTROPHILS (test code = 1008) 57.3 % LYMPHOCYTES (test code = 1010) 31.4 % MONOCYTES (test code = 1011) 8.3 % EOSINOPHILS (test code = 1012) 2.8 % BASOPHILS (test code = 1013) 0.2 % PLATELET COUNT (test code = 1015) 236 K/UL Armaan Smith Notes Date/Time Note Provider Source Armaan Davis [facility]2024-05-16 00:00:00 Armaan Davis [facility]
[2024-02-06] MEDS ORDERED: ASPIRIN 81 MG CHEWABLE TABLET ONE (14:50)
[2024-02-06 15:06] LABS: Absolute Eosinophils 0.2 K/uL (0-0.5); Absolute Lymphocytes (CBC) 1.6 K/uL (0.7-4.9); Absolute Monocytes 0.4 K/uL (0.1-1.3); Absolute Neutrophil 3.2 K/uL (1.8-8.0); Basophils % 0.7 % (0-1.3); Eosinophils % 3.2 % (0-4.4); Hematocrit 36.3 % (36.0-45.0); Hemoglobin 11.4 g/dL (12.0-15.0); MCH 25.4 pg (27.0-35.0); MCHC 31.4 g/dL (32.0-36.0); MCV 80.8 fL (80-100); MPV 9.1 fL (7.6-11.3); Monocytes % 6.6 % (3.3-12.3); Neutrophils % 60.5 % (41.7-73.7); Platelets 235 thou/uL (152-406); RBC Red Blood Cell Count 4.49 M/uL (3.86-4.86); Red Cell Distribution Width 15.3 % (12.1-15.2)
[2024-02-06 15:39] LABS: Anion Gap 7.9 mEq/L (5.0-15.0); Magnesium 1.7 mg/dL (1.6-2.4); Potassium 3.9 mEq/L (3.5-5.1)
--- NOTE | 2024-02-06 15:40 | RAD REPORT ---
EXAMINATION: ONE VIEW CHEST XR CLINICAL INDICATION: Female, 68 years old.,CHEST PAIN TECHNIQUE: Frontal chest projection is submitted. Examination is limited by patient positioning and t echnique. COMPARISON: 01/27/2021 FINDINGS: The lungs are well inflated and clear. No pneumothorax or sizable effusion. The heart is normal in s ize. IMPRESSION: No acute intrathoracic abnormalities.
--- NOTE | 2024-02-06 16:51 | ER ---
Nurse's Notes [facility] Name: Felicia James Age: 68 yrs Sex: Female : 1955 Arrival Date: 02/06/2024 Time: 14:30 Bed 17 Private MD: Diagnosis: Chest pain, unspecified Presentation: 02/05 14:45 Chief complaint: Patient states: Left sided chest pain onset 3 days ago. Pt states that cm10 3 hours ago pain got worse. Pt describes the pain as a pressure and states that the pain radiates down her left arm. Pt rates her pain a /10. 14:45 Method Of Arrival: Ambulatory cm10 14:45 Coronavirus screen: Client denies travel out of the [place] in the last 14 days. Ebola cm10 Screen: Patient denies travel to an Ebola-affected area in the 21 days before illness onset. No symptoms or risks identified at this time. Initial Sepsis Screen: Does the patient meet any 2 criteria? No. Patient's initial sepsis screen is negative. Does the patient have a suspected source of infection? No. Patient's initial sepsis screen is negative. Risk Assessment: Do you want to hurt yourself or someone else? Patient reports no desire to harm self or others. Onset of symptoms was February 03, 2024. 14:45 Acuity: CHAD 2 cm10 Triage Assessment: 14:45 General: Appears in no apparent distress. comfortable, Behavior is crying. Pain: cm10 Complains of pain in chest Pain radiates to left arm Pain currently is 7 out of 10 on a pain scale. Quality of pain is described as pressure, Pain began 2-3 days ago. Is continuous. Neuro: No deficits noted. Level of Consciousness is awake, alert, obeys commands, Oriented to person, place, time, situation, Appropriate for age. Cardiovascular: No deficits noted. Heart tones present Patient's skin is warm and dry. Chest pain is described as Pain is 7 out of 10 on a pain scale. quality is pressure, is located in left radiates to left arm(s) began 3 days ago. 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 Cardiovascular: Chest pain. Respiratory: No deficits noted. Airway is patent Respiratory effort is even, unlabored, Respiratory pattern is regular, symmetrical, Breath sounds are clear bilaterally. Derm: No deficits noted. Skin is intact, Skin is pink, warm \T\ dry. Musculoskeletal: No deficits noted. Range of motion: intact in all extremities. Historical: - Allergies: 15:03 Naproxen; cm10 - Home Meds: 15:03 atorvastatin 20 mg Oral tab 1 tab every day at bedtime [Active]; lisinopril 20 mg oral cm10 tablet 2 tabs 2 times per day [Active]; sotalol 80 mg Oral tablet 1 tab 2 times per day [Active]; - PMHx: 15:03 gastric ulcers; Hypertensive disorder; Hypercholesterolemia; cm10 - Immunization history:: Adult Immunizations up to date. - Infectious Disease History:: Denies. - Social history:: Smoking status: Patient denies any tobacco usage or history of. Screenin:08 [facility] ED Fall Risk Assessment (Adult) History of falling in the last 3 months, cm10 including since admission No falls in past 3 months (0 pts) Confusion or Disorientation No (0 pts) Intoxicated or Sedated No (0 pts) Impaired Gait No (0 pts) Mobility Assist Device Used No (0 pt) Altered Elimination No (0 pt) Score/Fall Risk Level 0 - 2 = Low Risk Oriented to surroundings, Maintained a safe environment, Hourly rounding (assess needs \T\ fall precautionary measures) done. Abuse screen: Denies threats or abuse. Denies injuries from another. Nutritional screening: No deficits noted. Tuberculosis screening: No symptoms or risk factors identified. Assessment: 16:30 Reassessment: Patient appears in no apparent distress at this time. No changes from cm10 previously documented assessment. Patient and/or family updated on plan of care and expected duration. Pain level reassessed. Patient is alert, oriented x 3, equal unlabored respirations, skin warm/dry/pink. 17:30 Reassessment: Patient appears in no apparent distress at this time. No changes from cm10 previously documented assessment. Patient and/or family updated on plan of care and expected duration. Pain level reassessed. Patient is alert, oriented x 3, equal unlabored respirations, skin warm/dry/pink. 17:45 General: Pt eating at this time.. cm10 18:06 Reassessment: Report faxed at this time,no answer from charge phone or ext [phone]. cm10 18:41 Reassessment: Attempting to take patient upstairs, per kyle fax was never received. cm10 Report refaxed at this time. Called charge nurse to confirm fax was received and no answer. Called ext [phone] with no answer. 18:49 Reassessment: Per household personal assistant, patient can go up in 15 minutes. cm10 Vital Signs: 14:45 BP 189 / 72; Pulse 68; Resp 16; Temp 99; Pulse Ox 97% ; Weight 95.25 kg; Height 5 ft. 3 cm10 in. ; Pain 7/10; 15:15 BP 141 / 57; Pulse 64; Resp 16; Pulse Ox 96% on R/A; cm10 15:45 BP 133 / 93; Pulse 65; Resp 18; Pulse Ox 95% ; cm10 16:00 BP 153 / 63; Pulse 63; Resp 15; Pulse Ox 97% on R/A; cm10 16:30 BP 153 / 58; Pulse 53; Resp 12; Pulse Ox 98% on R/A; cm10 17:00 BP 174 / 74; Pulse 57; Resp 16; Pulse Ox 99% on R/A; cm10 17:30 BP 168 / 70; Pulse 57; Resp 18; Pulse Ox 98% on R/A; cm10 18:00 BP 159 / 66; Pulse 67; Resp 16; Pulse Ox 98% on R/A; cm10 14:45 Body Mass Index 37.20 (95.25 kg, 160.02 cm) cm10 14:45 Pain Scale: Adult cm10 ED Course: 14:37 Patient arrived in ED. im 14:38 Amy Bryson, [place] is Primary Nurse. cm10 14:38 Akilah Storm FNP-C is [facility]. kb 14:38 Sonny Malhotra MD is Attending Physician. kb 14:40 Arm band placed on Patient placed in an exam room, on a stretcher. ll1 14:45 Patient has correct armband on for positive identification. Bed in low position. Call cm10 light in reach. Side rails up X2. Provided Education on: ER process and procedures.. Client placed on continuous cardiac and pulse oximetry monitoring. NIBP monitoring applied. court monitor on. 14:45 Door closed. Warm blanket given. Pillow given. cm10 14:45 Initial lab(s) drawn, by me, sent to lab. EKG done, by ED staff, reviewed by Akilah RICO. Inserted saline lock: 20 gauge in right antecubital area, using aseptic technique. Blood collected. Flushed with 10 mL NS. Patient maintains SpO2 saturation greater than 95% on room air. 14:50 EKG completed in triage. Results shown to MD. ll1 15:02 Basic Metabolic Panel Sent. cm10 15:02 CBC with Diff Sent. cm10 15:02 Magnesium Sent. cm10 15:02 NT PRO-BNP Sent. cm10 15:02 Troponin HS Sent. cm10 15:06 Triage completed. cm10 15:32 XRAY Chest (1 view) In Process Unspecified. EDMS 16:51 Geo Hale is Hospitalizing Provider. kb 18:01 1801 CM met with patient at the bedside in the ED exam room. Patient identified by name ane and . Demographic sheet confirmed. Patient states she lives with her Ramesh in a single story home. She reports that prior to admission, she performs ADLs independently. No MPOA in place and her PCP is Dr. Ruthie Davison. No HH, home oxygen or other medical services at this time. Her preferred plan is to return home upon discharge and that her Ramesh will transport her home. CM team will continue to follow and coordinate care during this hospital stay. 18:47 No provider procedures requiring assistance completed. Patient admitted, IV remains in cm10 place. Administered Medications: 15:02 Drug: Aspirin PO Chewable Tablet 324 mg PO once; 81 mg tablets x 4 Route: PO; cm10 15:45 Follow up: Response: No adverse reaction cm10 Medication: 15:08 VIS not applicable for this client. cm10 Outcome: 16:51 Decision to Hospitalize by Provider. kb 18:47 Admitted to Med/surg accompanied by nurse, via wheelchair, room 230, cm10 18:47 Condition: good 18:47 Instructed on the need for admit, 19:10 Patient left the ED. br2 Signatures: Dispatcher [employer] EDAL Akilah Storm FNP-C FNP-Alok Hernandez RN RN ll1 Humaira Mendez Clarissa, RN RN cm10 Pily Reyes RN RN br2 Jeane Hoffman RN RN ane
--- NOTE | 2024-02-06 16:51 | EDPHYS ---
Physician Documentation [facility] Name: Felicia James Age: 68 yrs Sex: Female : 1955 Arrival Date: 02/06/2024 Time: 14:30 Bed 17 Private MD: ED Physician Sonny Malhotra HPI: 02/05 14:52 This 68 yrs old Female presents to ER via Unassigned with complaints of Chest kb Pain, Arm Pain. 15:11 Pt is a 68 year old female who presents for chest pressure that started 3 days ago and kb got worse 2-3 hours ago. States within the last 2-3 hours she has also developed shortness of breath, nausea and left arm cramping. No aggravating or alleviating factors. Historical: - Allergies: 15:03 Naproxen; cm10 - Home Meds: 15:03 atorvastatin 20 mg Oral tab 1 tab every day at bedtime [Active]; lisinopril 20 mg oral cm10 tablet 2 tabs 2 times per day [Active]; sotalol 80 mg Oral tablet 1 tab 2 times per day [Active]; - PMHx: 15:03 gastric ulcers; Hypertensive disorder; Hypercholesterolemia; cm10 - Immunization history:: Adult Immunizations up to date. - Infectious Disease History:: Denies. - Social history:: Smoking status: Patient denies any tobacco usage or history of. ROS: 16:49 Constitutional: As per HPI kb Exam: 14:52 Constitutional: This is a well developed, well nourished patient who is awake, alert, kb and in no acute distress. Head/Face: Normocephalic, atraumatic. ENT: Moist Mucous membranes Cardiovascular: Regular rate Respiratory: Respirations even and unlabored. No increased work of breathing. Talking in full sentences Abdomen/GI: Soft, non-tender. No distention Skin: Warm, dry with normal turgor. Normal color. MS/ Extremity: Pulses equal, no cyanosis. Neurovascular intact. Full, normal range of motion. Neuro: Awake and alert, GCS 15, oriented to person, place, time, and situation. Moves all extremities. Normal gait. 14:52 ECG was reviewed by the Attending Physician. Vital Signs: 14:45 BP 189 / 72; Pulse 68; Resp 16; Temp 99; Pulse Ox 97% ; Weight 95.25 kg; Height 5 ft. 3 cm10 in. ; Pain 7/10; 15:15 BP 141 / 57; Pulse 64; Resp 16; Pulse Ox 96% on R/A; cm10 15:45 BP 133 / 93; Pulse 65; Resp 18; Pulse Ox 95% ; cm10 16:00 BP 153 / 63; Pulse 63; Resp 15; Pulse Ox 97% on R/A; cm10 16:30 BP 153 / 58; Pulse 53; Resp 12; Pulse Ox 98% on R/A; cm10 17:00 BP 174 / 74; Pulse 57; Resp 16; Pulse Ox 99% on R/A; cm10 17:30 BP 168 / 70; Pulse 57; Resp 18; Pulse Ox 98% on R/A; cm10 18:00 BP 159 / 66; Pulse 67; Resp 16; Pulse Ox 98% on R/A; cm10 14:45 Body Mass Index 37.20 (95.25 kg, 160.02 cm) cm10 14:45 Pain Scale: Adult cm10 MDM: 14:39 Patient medically screened. kb 16:50 Differential diagnosis: acute KS, arrhythmia. Data reviewed: vital signs, nurses notes. kb Consideration of Admission/Observation Patient was admitted/placed on observation. Escalation of care including admission/observation considered. Management of patient was discussed with the following: Hospitalist: Hospitalist team, pt accepted for admission under Dr Hale. Historians other than the Patient: Spouse/Significant Other: . Counseling: I had a detailed discussion with the patient and/or guardian regarding the historical points, exam findings, and any diagnostic results supporting the discharge/admit diagnosis, lab results, radiology results, the need for further work-up and treatment in the hospital. 02/05 14:49 Order name: Basic Metabolic Panel; Complete Time: 15:49 kb 02/05 14:49 Order name: CBC with Diff; Complete Time: 15:16 kb 02/05 14:49 Order name: Magnesium; Complete Time: 15:49 kb 02/05 14:49 Order name: NT PRO-BNP; Complete Time: 15:49 kb 02/05 14:49 Order name: Troponin HS; Complete Time: 15:49 kb 02/05 17:32 Order name: Urinalysis w/ reflexes EDMS 02/05 17:32 Order name: Basic Metabolic Panel EDMS 02/05 17:32 Order name: Basic Metabolic Panel EDMS 02/05 17:32 Order name: CBC with Automated Diff EDMS 02/05 17:32 Order name: CBC with Automated Diff EDMS 02/05 17:32 Order name: Lipid Profile EDMS 02/05 17:32 Order name: Lipid Profile EDMS 02/05 17:32 Order name: Magnesium EDMS 02/05 17:32 Order name: Magnesium EDMS 02/05 17:32 Order name: NT PRO-BNP EDMS 02/05 17:32 Order name: NT PRO-BNP EDMS 02/05 17:32 Order name: Troponin High Sensitivity EDMS 02/05 17:32 Order name: Troponin High Sensitivity EDMS 02/05 17:32 Order name: Troponin High Sensitivity EDMS 02/05 17:32 Order name: Troponin High Sensitivity EDMS 02/05 14:49 Order name: XRAY Chest (1 view); Complete Time: 15:49 kb 02/05 17:33 Order name: Rest Stress Cardiac Imaging EDMS 02/05 14:49 Order name: EKG; Complete Time: 14:50 kb 02/05 17:30 Order name: CONS Physician Consult EDMS 02/05 14:49 Order name: Cardiac monitoring; Complete Time: 15:02 kb 02/05 14:49 Order name: EKG - Nurse/Tech; Complete Time: 15:02 kb 02/05 14:49 Order name: IV Saline Lock; Complete Time: 15:02 kb 02/05 14:49 Order name: Labs collected and sent; Complete Time: 15:02 kb 02/05 14:49 Order name: O2 Per Protocol; Complete Time: 15:02 kb 02/05 14:49 Order name: O2 Sat Monitoring; Complete Time: 15:02 kb EC:52 Rate is 71 beats/min. Rhythm is regular. QRS [place] is Normal. NE interval is normal at kb 148 msec. QRS interval is normal at 74 msec. QT interval is normal at 415 msec. Administered Medications: 15:02 Drug: Aspirin PO Chewable Tablet 324 mg PO once; 81 mg tablets x 4 Route: PO; cm10 15:45 Follow up: Response: No adverse reaction cm10 Disposition Summary: 02/06/24 16:51 Hospitalization Ordered Notes: Hospitalization Status: Observation kb Provider: Geo Hale Location: Telemetry/MedSurg (observation) kb Condition: Stable kb Problem: new kb Symptoms: are unchanged kb Bed/Room Type: Standard kb Room Assignment: 230(02/06/24 17:40) bd Diagnosis - Chest pain, unspecified kb Forms: - Medication Reconciliation Form kb - SBAR form kb - Leadership Thank You Letter kb Addendum: 02/08/2024 07:44 I was immediately available for consultation during this patient's visit. I did not e c2 personally see the patient or discuss the patient with the ALFONSO. . Signatures: Dispatcher [employer] EDMS Akilah Storm, LEAD MATERIAL HANDLER-C LEAD MATERIAL HANDLER-Ckb Jasmin Vickers Clarissa, RN RN cm10 Sonny Malhotra MD MD ec2 Corrections: (The following items were deleted from the chart) 02/05 14:50 14:50 BASIC METABOLIC PANEL+C.LAB.BRZ ordered. EDMS EDMS 14:50 14:50 CBC+H.LAB.BRZ ordered. EDMS EDMS 14:50 14:50 MAGNESIUM+C.LAB.BRZ ordered. EDMS EDMS 14:50 14:50 PROBNP+C.LAB.BRZ ordered. EDMS EDMS 14:50 14:50 Troponin High Sensitivity+C.LAB.BRZ ordered. EDMS EDMS 17:38 17:33 Rest Stress Cardiac Imaging ordered. EDMS EDMS 17:40 16:51 kb bd
--- NOTE | 2024-02-06 17:25 | P.HP ---
Certification for Inpatient Patient admitted to: Observation Patient will require the following post-hospital care: None Practitioner: I am a practitioner with admitting privileges, knowledge of patient current condition, hospital course, and medical plan of care. Services: Services provided to patient in accordance with Admission requirements found in Title 42 Section 412.3 of the Code of Federal Regulations Patient History Date of Service: 02/06/24 History of Present Illness: 5-year-old female with a past medical history of hypertension, hyperlipidemia, gastric ulcers, presents to the emergency room for chest pain, she reports chest pain started 3 days ago, radiates to her left arm, is mild intermittent. She denies nausea vomiting shortness of breath, chest pain with exertion. She denies palpitations. Plan to admit for chest pain rule out [place] with cardiology consult ER evaluation blood pressure 189/72, heart rate 68, temp 99 O2 sat 97%, EKG rate 71, no ST elevation, EKG evaluation, patient was sinus bradycardia, patient treated with aspirin, in the emergency room. Allergies ibuprofen Allergy (Verified 07/10/15 00:20) Rash No Known Allergies Allergy (Uncoded 07/10/15 00:35) Unknown Home Medications: Atorvastatin Calcium [Lipitor*] 20 mg PO BEDTIME 07/25/18 Rivaroxaban [Xarelto] 20 mg PO DAILY #30 tablet 01/28/21 Sotalol HCl [Betapace*] 80 mg PO BID 6AM 6PM #60 tab 01/28/21 - Past Medical/Surgical History Diabetic: No -: Hypertension -: Hyperlipidemia -: History of gastric ulcer -: hernia repair Psychosocial/ Personal History: Patient lives at home. She is - Social History Alcohol use: No CD- Drugs: No Caffeine use: Yes Review of Systems Listed as General: As per HPI Physical Examination - Physical Exam General: Alert, In no apparent distress, Oriented x3 HEENT: Atraumatic, Normocephalic Neck: 2+ carotid pulse no bruit, JVD not distended Respiratory: Clear to auscultation bilaterally, Normal air movement Cardiovascular: Normal pulses, Other (Sinus bradycardia 56) Capillary refill: <2 Seconds Gastrointestinal: Normal bowel sounds, Soft and benign Musculoskeletal: No swelling, No tenderness Integumentary: No significant lesion, No tenderness/swelling Neurological: Normal gait, Normal speech, Normal strength at 5/5 x4 extr - Studies Laboratory Data (last 24 hrs) 02/06/24 02/06/24 14:55 14:55 WBC 5.40 Hgb 11.4 L Hct 36.3 Plt Count 235 Sodium 137 Potassium 3.9 BUN 13 Creatinine 0.58 Glucose 132 H Magnesium 1.7 Assessment and Plan - Problems (Diagnosis) (1) Hypertensive urgency Current Visit: Yes Status: Acute (2) Sinus bradycardia Current Visit: Yes Status: Acute (3) Prediabetes Current Visit: Yes Status: Chronic (4) Chest pain Onset Date: 07/12/15 Current Visit: No Status: Acute Qualifiers: Chest pain type: unspecified Qualified Code(s): R07.9 - Chest pain, unspecified (5) Hyperlipidemia Current Visit: No Status: Chronic Qualifiers: - Plan Assessment plan Trend troponins, If troponins negative consider stress test in the a.m. Cardiology consult, telemetry, Aspirin, beta-inge, antilipid, Accu-Cheks, sliding scale Diabetic diet Full code DVT Lovenox Disposition Home independent prior Discharge Plan: Home - Advance Directives Does patient have a Living Will: No Does patient have a Durable POA for Healthcare: No - Code Status/Comfort Care Code Status: Full Code Critical Care: No Time Spent Managing Pts Care (In Minutes): 55
[2024-02-06] MEDS ORDERED: MORPHINE 2 MG/ML SYR IV PRN (17:28)
[2024-02-06] MEDS ORDERED: ACETAMINOPHEN 500 MG TAB PO PRN (17:28)
[2024-02-06] MEDS ORDERED: ALPRAZOLAM 0.25 MG TABLET PO PRN (17:28)
[2024-02-06] MEDS: ENOXAPARIN 40 MG/0.4 ML SQ SCH (21:55)
[2024-02-06] MEDS: ATORVASTATIN 20 MG TAB PO SCH (21:55)
[2024-02-06] MEDS: SOTALOL HCL 80 MG TAB PO SCH (23:31)
[2024-02-07] MEDS: HYDRALAZINE HCL 20 MG/ML VIAL IV PRN (00:48)
[2024-02-07 01:13] VITALS: BMI 37.2
[2024-02-07 04:47] LABS: Absolute Eosinophils 0.2 K/uL (0-0.5); Absolute Lymphocytes (CBC) 2.3 K/uL (0.7-4.9); Absolute Monocytes 0.4 K/uL (0.1-1.3); Absolute Neutrophil 3.1 K/uL (1.8-8.0); Basophils % 0.7 % (0-1.3); Hematocrit 34.1 % (36.0-45.0); Hemoglobin 11.1 g/dL (12.0-15.0); MCH 25.8 pg (27.0-35.0); MCHC 32.4 g/dL (32.0-36.0); MCV 79.5 fL (80-100); Monocytes % 6.8 % (3.3-12.3); Neutrophils % 50.5 % (41.7-73.7); Nucleated Red Blood Cells % 0.3 % (0-0); Platelets 242 thou/uL (152-406); RBC Red Blood Cell Count 4.29 M/uL (3.86-4.86)
[2024-02-07 05:03] LABS: Anion Gap 6.6 mEq/L (5.0-15.0); Magnesium 1.9 mg/dL (1.6-2.4); Potassium 4.6 mEq/L (3.5-5.1); Troponin High Sensitivity 6.1 pg/mL (<58.9)
--- NOTE | 2024-02-07 05:33 | P.PN ---
Subjective Date of Service: 02/07/24 Chief Complaint: Chest pain Subjective: Improving (no c/o this am, awaiting stress test, troponins trended normal, Denies CP or DAVIS) Review of Systems 10-point ROS is otherwise unremarkable General: Unremarkable Eyes: Unremarkable ENT: Unremarkable Respiratory: Unremarkable Cardiovascular: Unremarkable Gastrointestinal: Unremarkable Genitourinary: Unremarkable Musculoskeletal: Unremarkable Integumentary: Unremarkable Neurological: Unremarkable Lymphatics: Unremarkable Physical Examination - Vital Signs Temperature: 97.7 F Blood Pressure: 107/52 Pulse: 74 Respirations: 16 Pulse Ox (%): 97 - Physical Exam General: Alert, In no apparent distress, Oriented x3 HEENT: Atraumatic, Normocephalic Neck: Supple Respiratory: Normal air movement Cardiovascular: Normal pulses, Regular rate/rhythm, Normal S1 S2 Capillary refill: <2 Seconds Gastrointestinal: Normal bowel sounds Musculoskeletal: No clubbing, No swelling Neurological: Normal speech, Normal tone, Normal affect Lymphatics: No axilla or inguinal lymphadenopathy External genitalia: Deferred Rectal: Deferred - Studies Laboratory Data (last 24 hrs) 02/06/24 02/06/24 14:55 14:55 WBC 5.40 Hgb 11.4 L Hct 36.3 Plt Count 235 Sodium 137 Potassium 3.9 BUN 13 Creatinine 0.58 Glucose 132 H Magnesium 1.7 Assessment And Plan - Plan Assessment and Plan - Problems (Diagnosis) (1) Hypertensive urgency Current Visit: Yes Status: Acute (2) Sinus bradycardia Current Visit: Yes Status: Acute (3) Prediabetes Current Visit: Yes Status: Chronic (4) Chest pain Onset Date: 07/12/15 Current Visit: No Status: Acute Qualifiers: Chest pain type: unspecified Qualified Code(s): R07.9 - Chest pain, unspecified (5) Hyperlipidemia Current Visit: No Status: Chronic Qualifiers: Assessment plan Trend troponins, stress test in the a.m. Cardiology consult, telemetry, Aspirin, beta-inge, antilipid, Accu-Cheks, sliding scale Diabetic diet Full code DVT Lovenox 02/07/24 troponins trended normal stress test in progress continues on tele awaiting results for dispo Disposition Home independent prior Discharge Plan: Home - Advance Directives Does patient have a Living Will: No Does patient have a Durable POA for Healthcare: No - Code Status/Comfort Care Code Status: Full Code Critical Care: No - Code Status/Comfort Care Code Status Assessed: Yes (Full) Time Spent Managing PTS Care (In Minutes): 22
[2024-02-07] MEDS: ASPIRIN 325 MG TAB PO SCH (09:10)
[2024-02-07] MEDS ORDERED: REGADENOSON 0.4 MG/5 ML SYR IV ONE (09:58)
--- NOTE | 2024-02-07 11:26 | RAD REPORT ---
EXAM :Rest Stress Cardiac Imaging CLINICAL HISTORY: Chest pain TECHNIQUE: Rest images: 10.2mCi technetium 99m sestamibi administered intravenously. Stress images: 30.8 mCi of technetium 99m sestamibi administered intravenously. Cardiac SPECT images obtained COMPARISON: 2019 FINDINGS: The left lateral left ventricular myocardium demonstrates a small area of mildly diminished radiotrac er uptake on stress images. he entire left ventricular myocardium demonstrates homogeneous radiotracer uptake on rest images Left ventricular ejection fraction equals 80% IMPRESSION: Small, mild apparent reversible perfusion defect left lateral ventricular myocardium may indicate str ess-induced ischemia
--- NOTE | 2024-02-07 12:30 | TREADPHA ---
DX: CHEST PAIN, RULE OUT MYOCARDIAL INFARCTION Date of Study: 02/07/2024 Ht: 5' 3 " Wt: 210 lb 0 oz Consulting Physician: JUAN ANTONIO MEDICATIONS: TYLENOL, XANAX, STEPHANIE ASPIRIN, LIPITOR, LOVENOX, APRESOLINE, MORPHINE, BETAPACE HISTORY: HISTORY OF HYPERTENSION AND HYPERLIPIDEMIA PHYSICIAL EXAMINATION: RESTING B.P.: 167/81 RESTING H.R.: 60 RESTING EKG: SINUS RHYTHM PROTOCOL: PHARMACOLOGIC EXERCISE TIME: 3:30 B.P. AT PEAK STRESS: 150/81 IMPRESSION: LEXISCAN STRESS TEST PERFORMED. CARDIOLITE INJECTED PER PROTOCOL (SEE NUCLEAR MEDICINE REPORT). NO ARRHYTHMIAS, NO SUPRAVENTRICULAR TACHYCARDIA, NO VENTRICULAR TACHYCARDIA OR CONCERNS NOTED.
--- NOTE | 2024-02-07 14:53 | P.DS ---
Admission Date: 02/06/24 Discharge Date: 02/08/24 Disposition: ROUTINE DISCHARGE Discharge Condition: GOOD Reason for Admission: Chest pain Consultations: Dr. Rodriguez Procedures: Stress test and left heart catheterization Brief History of Present Illness: 68-year-old female with a past medical history of hypertension, hyperlipidemia, gastric ulcers, presents to the emergency room for chest pain, she reports chest pain started 3 days ago, radiates to her left arm, is mild intermittent. She denies nausea vomiting shortness of breath, chest pain with exertion. She denies palpitations. Plan to admit for chest pain rule out MD with cardiology consult. ER evaluation blood pressure 189/72, heart rate 68, temp 99 O2 sat 97%, EKG rate 71, no ST elevation, EKG evaluation, patient was sinus bradycardia, patient treated with aspirin, in the emergency room. Hospital Course: Ms. James had a nuclear medicine stress test, which was abnormal. Dr. Rodriguez performed a left heart cath this morning and found normal coronaries. He would like her to continue her current sotalol, lisinopril, and atorvastatin medication regimen. Begin Eliquis 5 mg p.o. twice daily. She should continue monitoring her blood pressure. Vital Signs/Physical Exam: Temp Pulse Resp BP Pulse Ox 97.9 F 63 16 160/67 H 95 02/07/24 12:00 02/07/24 12:00 02/07/24 12:00 02/07/24 12:00 02/07/24 12:00 General: Alert, In no apparent distress, Cooperative Laboratory Data at Discharge: WBC 6.00 thou/uL (4.3-10.9) 02/07/24 04:11 Hgb 11.1 g/dL (12.0-15.0) L 02/07/24 04:11 Hct 34.1 % (36.0-45.0) L 02/07/24 04:11 Plt Count 242 thou/uL (152-406) 02/07/24 04:11 Sodium 140 mEq/L (136-145) 02/07/24 04:11 Potassium 4.6 mEq/L (3.5-5.1) D 02/07/24 04:11 BUN 15 mg/dL (7-18) 02/07/24 04:11 Creatinine 0.54 mg/dL (0.55-1.02) L 02/07/24 04:11 Glucose 111 mg/dL (74-106) H 02/07/24 04:11 Magnesium 1.9 mg/dL (1.6-2.4) 02/07/24 04:11 Total Bilirubin Cancelled 02/06/24 22:11 AST Cancelled 02/06/24 22:11 ALT Cancelled 02/06/24 22:11 Alkaline Phosphatase Cancelled 02/06/24 22:11 Triglycerides 154 mg/dL (<150) H 02/07/24 04:11 Cholesterol 150 mg/dL (<200) 02/07/24 04:11 HDL Cholesterol 41 mg/dL (40-60) 02/07/24 04:11 Cholesterol/HDL Ratio 3.66 02/07/24 04:11 Home Medications: Atorvastatin Calcium [Lipitor*] 20 mg PO BEDTIME 07/25/18 Sotalol HCl [Betapace*] 80 mg PO BID 6AM 6PM #60 tab 01/28/21 Lisinopril [Zestril] 20 mg PO BID 02/06/24 Apixaban [Eliquis] 5 mg PO BID #60 tab 02/08/24 New Medications: Apixaban [Eliquis] 5 mg PO BID #60 tab Physician Discharge Instructions: Hospital course: Ms. James had a nuclear medicine stress test, which was abnormal. Dr. Rodriguez performed a left heart cath this morning and found normal coronaries. He would like her to continue her current sotalol, lisinopril, and atorvastatin medication regimen. Begin Eliquis 5 mg p.o. twice daily. She should continue monitoring her blood pressure. Assessment: Angina with hypertensive urgency PMH: Hypertension, hyperlipidemia, gastric ulcers Continue home medicines as previously prescribed New Rx: Eliquis 5 mg p.o. twice daily #60 GOAL: Clear understanding of disease process Diet: ADA, low sodium Activity: Fall precautions INSTRUCTIONS: Physician Discharge Instructions: Okay to DC IV and DC home Follow-up with primary care provider in 1 to 2 weeks Follow-up with cardiology in 1 to 2-weeks Please call the inpatient unit for any questions or concerns regarding hospital stay Return to the ER for worsening symptoms Diet: AHA Activity: Ad nona Followup: Ruthie Davison MD [Primary Care Provider] - Amador Rodriguez MD [ACTIVE - CAN ADMIT] -
--- NOTE | 2024-02-07 15:33 | P.PN ---
Date of Service: 02/07/24 Pt in no distress. Chem stress negative. Dr. Rodriguez will cath Ms. James in the am. AHA diet for now and NPO post MN.
--- NOTE | 2024-02-07 16:15 | P.CNS ---
Date of Consult: 02/07/24 Chief Complaint: Chest pain History of Present Illness: Patient with PMH of HTN, Atrial fibrillation, presented with chest pain that has been going for a period of time, pressure sensation, last for few minutes, denies palpitations, no syncope, no SOB, no SHIELDS. Allergies ibuprofen Allergy (Verified 02/06/24 22:30) Hives Home medications list reviewed: Yes Home Medications: Atorvastatin Calcium [Lipitor*] 20 mg PO BEDTIME 07/25/18 Sotalol HCl [Betapace*] 80 mg PO BID 6AM 6PM #60 tab 01/28/21 Lisinopril [Zestril] 20 mg PO BID 02/06/24 - Past Medical/Surgical History Diabetic: No -: Hypertension -: Hyperlipidemia -: History of gastric ulcer -: Tachycardia -: umbilical and inguinal hernia repair -: Ovarian cyst removal Psychosocial/ Personal History: Patient lives at home. She is - Family History Mother Medical History: Cancer - Social History Alcohol use: No CD- Drugs: No Caffeine use: Yes Place of Residence: Home Review of Systems 10-point ROS is otherwise unremarkable Physical Examination Temp Pulse Resp BP Pulse Ox 97.9 F 63 16 160/67 H 95 02/07/24 12:00 02/07/24 12:00 02/07/24 12:00 02/07/24 12:00 02/07/24 12:00 General: Alert, In no apparent distress HEENT: Atraumatic, PERRLA, Mucous membr. moist/pink, EOMI, Sclerae nonicteric Neck: Supple, 2+ carotid pulse no bruit, No LAD, Without JVD or thyroid abnormality Respiratory: Clear to auscultation bilaterally, Normal air movement Cardiovascular: Regular rate/rhythm, Normal S1 S2 Gastrointestinal: Normal bowel sounds, No tenderness Musculoskeletal: No tenderness Integumentary: No rashes Neurological: Normal gait, Normal speech, Normal tone, Normal affect Lymphatics: No axilla or inguinal lymphadenopathy - Problems (1) Atrial fibrillation Current Visit: Yes Status: Acute Plan: Continue Sotalol 80 mg po BID patient will need NOAC that we can start after heart cath (2) Chest pain Onset Date: 07/12/15 Current Visit: No Status: Acute Plan: abnormal stress test showing lateral wall ischemia. NPO after midnight for coronary angiogram in am. Qualifiers: Chest pain type: unspecified Qualified Code(s): R07.9 - Chest pain, unspecified (3) HTN (hypertension) Current Visit: No Status: Chronic Plan: continue to monitor Qualifiers: Hypertension type: essential hypertension Qualified Code(s): I10 - Essential (primary) hypertension
--- NOTE | 2024-02-07 16:54 | EKG ---
Test Date: 2024-02-06 Test Time: 14:47:06 [employer]orer [employer]crete Paving: MOODY MEASUREMENT RESULTS: Intervals: Rate: 71 [place]: 148 QRSD: 74 QT: 382 QTc: 415 [place]: P: 53 [place]: 148 QRS: 60 T: 40 INTERPRETIVE STATEMENTS: Normal sinus rhythm Normal ECG Compared to ECG 01/27/2021 13:30:35 Atrial fibrillation no longer present Electronically Signed On 02-07-24 16:50:28 CDT by Anand Schmidt
[2024-02-07 19:12] LABS: PT Prothrombin Time 12.3 SECONDS (9.4-12.5); PTT, Activated Partial Thromb 32.9 SECONDS (24.3-36.9); Protime INR 1.1
[2024-02-07 21:27] LABS: Specific Gravity 1.025 (1.005-1.030); Sqamous Epithelial <5 /HPF (None Seen); Urine Bacteria None Seen /HPF (<20); Urine Bilirubin NEGATIVE (Negative); Urine Blood Negative (Negative); Urine Clarity Clear (Clear); Urine Color Light-Yellow (Yellow); Urine Culture Reflex Order NOT NEEDED; Urine Glucose NEGATIVE (Negative); Urine Ketones NEGATIVE (Negative); Urine Microscopic Reflex YN ORDER UMIC; Urine Mucus Slight /HPF (None Seen); Urine Nitrite NEGATIVE (Negative); Urine Protein TRACE (Negative); Urine RBC <5 /HPF (None Seen); Urine Urobilinogen 1+ (Normal); Urine WBC <5 /HPF (<5)
[2024-02-08] MEDS ORDERED: HEPA 1000U/500MLS 2,000 UNIT/1,000 ML BAG IV ONE (06:37)
[2024-02-08] MEDS ORDERED: LIDOCAINE 1% 20 ML MDV ONE (06:37)
[2024-02-08] MEDS ORDERED: ATROPINE SULF 1 MG/10 ML SYR IV ONE (06:37)
[2024-02-08] MEDS ORDERED: NITROGLYCERIN/D5W 50 MG/250 ML BTL IV ONE (06:37)
[2024-02-08] MEDS ORDERED: HEPARIN 10,000 UNIT/10 ML VIAL IV ONE (06:37)
[2024-02-08] MEDS ORDERED: HEPARIN 5000 UNIT/ML 1 ML VIAL ONE (06:38)
[2024-02-08] MEDS ORDERED: TICAGRELOR 90 MG TABLET PO ONE (06:38)
[2024-02-08] MEDS ORDERED: CLOPIDOGREL 75 MG TABLET ONE (06:38)
[2024-02-08] MEDS ORDERED: ASPIRIN 325 MG TAB ONE (06:38)
[2024-02-08] MEDS: NA CHLORIDE 0.9% 500 ML ONE (06:49)
[2024-02-08] MEDS: FENTANYL CITR 100 MCG/2 ML ONE (07:17)
[2024-02-08] MEDS: MIDAZOLAM HCL 2 MG/2 ML INJ ONE (07:17)
--- NOTE | 2024-02-08 08:59 | P.PN ---
Subjective Date of Service: 02/08/24 Chief Complaint: Chest pain Subjective: No new changes, No C/O voiced, Tolerating diet, Ambulating, Improving Review of Systems 10-point ROS is otherwise unremarkable Physical Examination - Vital Signs Temperature: 97.9 F Blood Pressure: 126/60 Pulse: 66 Respirations: 16 Pulse Ox (%): 96 - Physical Exam General: Alert, In no apparent distress HEENT: Atraumatic, PERRLA, EOMI Neck: Supple, JVD not distended Respiratory: Clear to auscultation bilaterally, Normal air movement Cardiovascular: Regular rate/rhythm, Normal S1 S2 Gastrointestinal: Normal bowel sounds, No tenderness Musculoskeletal: No tenderness Integumentary: No rashes Neurological: Normal speech, Normal tone, Normal affect Lymphatics: No axilla or inguinal lymphadenopathy - Studies Medications List Reviewed: Yes Assessment And Plan - Current Problems (Diagnosis) (1) Atrial fibrillation Current Visit: Yes Status: Acute Plan: Continue Sotalol 80 mg po BID Eliquis 5 mg po BID (2) Chest pain Onset Date: 07/12/15 Current Visit: No Status: Acute Plan: Abnormal stress test, coronary angiogram done and shows normal coronaries. Qualifiers: Chest pain type: unspecified Qualified Code(s): R07.9 - Chest pain, unspecified (3) HTN (hypertension) Current Visit: No Status: Chronic Plan: continue to monitor Qualifiers: Hypertension type: essential hypertension Qualified Code(s): I10 - Essential (primary) hypertension
[2024-02-08 10:26] VITALS: O2SAT 98
--- NOTE | 2024-02-08 12:20 | OP ---
Date of Procedure: 02/08/2024 Surgeon: Amador Rodriguez Procedures Performed: 1.Left heart catheterization. 2.Selective coronary angiogram. Indication For Procedure: Chest pain, abnormal stress test. Complications: None. Estimated Blood Loss: Less than 50 cc. Access: Right radial, closed by TR band. Sedation Time: 20 minutes with 2 of Versed and 50 of fentanyl. Description Of Procedure: After risks, benefits, and alternatives were explained to the patient, the patient agreed to proceed with procedure and signed informed consent. The patient was brought back to the optical laboratory mechanic, prepped and draped in a sterile fashion. Time-out was performed. Sedation was admi nistered. Next, right radial access was obtained. [place] 4 catheter was advanced over the J-wire int o the LV cavity. LVEDP was obtained. Pullback did not show any gradient. Same catheter was used fo r selective angiogram of the left and right coronary systems. At the end of procedure, catheter was removed with J-wire. Sheath was removed. TR band was applied. Hemostasis achieved. The patient wa s moved back to recovery in stable condition. Findings: 1.Left main, normal. 2.LAD, normal. 3.Left circ, normal. 4.RCA, normal. 5.LVEDP is 13 mmHg. Assessment And Plan: 1.Normal coronaries. 2.Normal filling pressures. The plan will be continue medical management for hypertension and atrial fibrillation. FARHANA Voice ID: [id number] Report ID: [id number]
[2024-02-08 12:57] VITALS: BP 143/64; TEMP 98
[2024-02-08] MEDS ORDERED: APIXABAN 5 MG TABLET PO SCH (21:00)
== END 2024-02-08 16:59 | disposition home or self-care (01) | DRG 287 ==
LOC: ER 14:30 → ERHOLD 17:27 → 2ND 18:38 → OBSVTOIN 02-08 12:09
PROVIDERS: ADMIT Internal Medicine; ATTEND Internal Medicine Sleep Medicine
PROC: B2111ZZ Fluoroscopy of Multiple Coronary Arteries using Low Osmolar Contrast (ICD-10-PCS; principal; 2024-02-08)
PROC: 4A023N7 Measurement of Cardiac Sampling and Pressure, Left Heart, Percutaneous Approach (ICD-10-PCS; 2024-02-08)
DX: I16.0 Hypertensive urgency (principal); I47.10 Supraventricular tachycardia, unspecified; E78.00 Pure hypercholesterolemia, unspecified; I10 Essential (primary) hypertension; I48.91 Unspecified atrial fibrillation; I20.9 Angina pectoris, unspecified; K25.9 Gastric ulcer, unspecified as acute or chronic, without hemorrhage or perforation; R73.03 Prediabetes; Z88.8 Allergy status to other drugs, medicaments and biological substances; Z79.01 Long term (current) use of anticoagulants; Z79.899 Other long term (current) drug therapy
CPT/HCPCS: 36415; 71045; 76937; 78452; 80048; 80061; 81001; 82947; 83735; 83880; 84484; 85025; 85610; 85730; 93005; 93017; 93458; 99152; A9500; C1893; G0378; J0360; J0461; J1644; J1650; J2001; J2250; J2785; J3010; J7040; Q9966